=== PATIENT | female | born 1950 | race Caucasian/White ===

== ENCOUNTER → 2017-04-05 12:04 | Outpatient (CLI) | payer MEDICARE, OTHER, SELFPAY ==
[2017-04-05 14:35] LABS: Absolute Lymphocyte Count 1.73 X10^3/ul (0.83-4.51); Absolute Neutrophil Count 4.5 X10^3/uL (2.0-7.7); Basophil# 0.02 X10^3/uL; Basophil% 0.3 % (0-1); Eosinophil# 0.19 X10^3/uL; Eosinophils% 2.6 % (0-5); Hematocrit 39.7 % (37-47); Hemoglobin 13.2 g/dl (12.0-15.0); Lymphocyte # 1.73 X10^3/ul (4.0); Lymphocyte % 24.1 % (19-41); Mean Corp Hgb Conc 33.2 g/gl (32-36); Mean Corpuscular Hgb 32.4 pg (27.0-32.0); Mean Corpuscular Volume 97.5 fL (81-99); Mean Platelet Vol. 9.6 fl (6.2-12.0); Monocyte# 0.73 X10^3/uL; Monocyte% 10.2 % (0-10); Neutrophil # 4.49 X10^3/uL (2.7-7.7); Neutrophil % 62.5 % (47-70); Platelet Count 279 K/mm3 (150-450); RBC Distribution Width CV 12.9 % (11.6-14.6); RBC Distribution Width SD 44.9 fl (35.1-43.9); Red Blood Count 4.07 M/mm3 (4.2-5.4); White Blood Count 7.2 K/mm3 (4.4-11.0)
[2017-04-05 14:40] LABS: POSITIVE COUNT NO; POSITIVE DIFFERENTIAL NO; POSITIVE MORPHOLOGY NO
[2017-04-05 14:47] LABS: AST(SGOT) 30 U/L (15-37); Alanine Aminotransfer ALT/SGPT 37 U/L (13-56); Albumin, Serum 3.7 g/dL (3.2-5.0); Alkaline Phosphatase 82 U/L (45-117); Anion Gap 5 (5-15); BUN 16 mg/dL (7-18); BUN/Creat Ratio 19.6 RATIO (10-20); Calcium,Total 9.2 mg/dL (8.5-10.1); Chloride 102 mmol/L (98-107); Creatinine, Serum 0.82 mg/dL (0.55-1.02); EST Glomerular Filtration Rate 74 mL/min (>60); Est Glom Filt Rate - Afr Amer 89 mL/min (>60); Globulin 3.8 g/dL (2.2-4.2); Glucose 82 mg/dL (70-110); Potassium 4.2 mmol/L (3.5-5.1); Protein, Total 7.5 g/dL (6.4-8.2); Sodium Level 138 mmol/L (136-145)
== END ==
PROVIDERS: Family Provider Internal Medicine; PCP Internal Medicine; Visit Provider Internal Medicine Rheumatology
DX: L40.59 Other psoriatic arthropathy (principal); M47.892 Other spondylosis, cervical region; M17.0 Bilateral primary osteoarthritis of knee; M79.7 Fibromyalgia; M25.561 Pain in right knee; Z79.899 Other long term (current) drug therapy
CPT/HCPCS: 36415; 80053; 85025

== ENCOUNTER → 2017-06-28 14:57 | Outpatient (CLI) | payer MEDICARE, OTHER, SELFPAY ==
[2017-06-28 18:11] LABS: Absolute Lymphocyte Count 1.82 X10^3/ul (0.83-4.51); Absolute Neutrophil Count 4.4 X10^3/uL (2.0-7.7); Basophil# 0.05 X10^3/uL; Basophil% 0.7 % (0-1); Eosinophil# 0.17 X10^3/uL; Eosinophils% 2.4 % (0-5); Hematocrit 37.2 % (37-47); Hemoglobin 12.1 g/dl (12.0-15.0); Lymphocyte # 1.82 X10^3/ul (4.0); Mean Corp Hgb Conc 32.5 g/gl (32-36); Mean Corpuscular Hgb 32.3 pg (27.0-32.0); Mean Corpuscular Volume 99.2 fL (81-99); Mean Platelet Vol. 9.5 fl (6.2-12.0); Monocyte# 0.57 X10^3/uL; Monocyte% 8.2 % (0-10); Neutrophil # 4.37 X10^3/uL (2.7-7.7); Neutrophil % 62.6 % (47-70); Platelet Count 313 K/mm3 (150-450); RBC Distribution Width CV 13.3 % (11.6-14.6); Red Blood Count 3.75 M/mm3 (4.2-5.4)
[2017-06-28 18:17] LABS: POSITIVE COUNT NO; POSITIVE DIFFERENTIAL NO; POSITIVE MORPHOLOGY NO
[2017-06-28 18:27] LABS: AST(SGOT) 24 U/L (15-37); Alanine Aminotransfer ALT/SGPT 30 U/L (13-56); Albumin, Serum 3.4 g/dL (3.2-5.0); Alkaline Phosphatase 81 U/L (45-117); Anion Gap 6 (5-15); BUN 16 mg/dL (7-18); BUN/Creat Ratio 18.6 RATIO (10-20); Calcium,Total 8.8 mg/dL (8.5-10.1); Chloride 104 mmol/L (98-107); Creatinine, Serum 0.86 mg/dL (0.55-1.02); EST Glomerular Filtration Rate 70 mL/min (>60); Est Glom Filt Rate - Afr Amer 84 mL/min (>60); Globulin 3.5 g/dL (2.2-4.2); Glucose 103 mg/dL (74-106); Potassium 4.1 mmol/L (3.5-5.1); Protein, Total 6.9 g/dL (6.4-8.2); Sodium Level 141 mmol/L (136-145)
== END ==
PROVIDERS: Family Provider Internal Medicine; PCP Internal Medicine; Visit Provider Internal Medicine Rheumatology
DX: L40.59 Other psoriatic arthropathy (principal); M79.7 Fibromyalgia; M17.0 Bilateral primary osteoarthritis of knee; M47.892 Other spondylosis, cervical region; Q66.7 Congenital pes cavus; E78.5 Hyperlipidemia, unspecified; G47.33 Obstructive sleep apnea (adult) (pediatric); F32.89 Other specified depressive episodes; Z79.899 Other long term (current) drug therapy
CPT/HCPCS: 36415; 80053; 85025

== ENCOUNTER → 2017-09-17 13:57 | Outpatient (CLI) | payer MEDICARE, OTHER, SELFPAY ==
--- NOTE | 2017-09-17 14:08 | US_ITS ---
STUDY: SUPERFICIAL ULTRASOUND - LEFT ARM AREA OF BRUISING, PALPABLE LUMP REASON FOR EXAM: Female, 67 years old. Left arm area of bruising with palpable lump, ventral just superior to the antecubital fossa. TECHNIQUE: A superficial ultrasound was performed with real-time and static goldman-scale imaging and color Doppler. COMPARISON: None. FINDINGS: Just superior to the antecubital fossa ventral aspect of the left arm there is a subcutaneous hypoechoic oval focus with irregular margins measuring 2.6 x 1.6 x 0.8 cm corresponding to the area of palpable lump and bruising and most consistent with a small hematoma. There is slight hyperemia in the surrounding subcutaneous fat. US/Ext Non Vasc Limited/Soft Tiss IMPRESSION: These findings are most consistent with a small hematoma within the subcutaneous fat. In the setting of trauma with bruising, this could also reflect a small region of fat necrosis. Electronically Signed: Elio Back, at 20:51 EDT Tel , Service support ,
== END ==
PROVIDERS: Family Provider Internal Medicine; PCP Internal Medicine
DX: R23.3 Spontaneous ecchymoses (principal)
CPT/HCPCS: 76882

== ENCOUNTER → 2018-03-14 13:23 | Outpatient (CLI) | payer MEDICARE, OTHER, SELFPAY ==
[2018-03-14 14:24] LABS: Absolute Lymphocyte Count 1.74 X10^3/ul (0.83-4.51); Absolute Neutrophil Count 3.8 X10^3/uL (2.0-7.7); Basophil# 0.03 X10^3/uL; Basophil% 0.5 % (0-1); Eosinophil# 0.15 X10^3/uL; Eosinophils% 2.4 % (0-5); Hematocrit 39.7 % (37-47); Hemoglobin 12.7 g/dl (12.0-15.0); Lymphocyte # 1.74 X10^3/ul (4.0); Lymphocyte % 27.9 % (19-41); Mean Corpuscular Hgb 31.7 pg (27.0-32.0); Mean Platelet Vol. 9.6 fl (6.2-12.0); Monocyte# 0.48 X10^3/uL; Monocyte% 7.7 % (0-10); Neutrophil # 3.82 X10^3/uL (2.7-7.7); Neutrophil % 61.3 % (47-70); Platelet Count 256 K/mm3 (150-450); RBC Distribution Width CV 13.3 % (11.6-14.6); RBC Distribution Width SD 46.6 fl (35.1-43.9); Red Blood Count 4.01 M/mm3 (4.2-5.4); White Blood Count 6.2 K/mm3 (4.4-11.0)
[2018-03-14 14:28] LABS: POSITIVE COUNT NO; POSITIVE DIFFERENTIAL NO; POSITIVE MORPHOLOGY NO
[2018-03-14 14:42] LABS: ALB/GLOB Ratio 1.1 RATIO (0.9-2.4); AST(SGOT) 31 U/L (15-37); Alanine Aminotransfer ALT/SGPT 38 U/L (13-56); Albumin, Serum 3.9 g/dL (3.2-5.0); Alkaline Phosphatase 85 U/L (45-117); Anion Gap 6 (5-15); BUN 16 mg/dL (7-18); BUN/Creat Ratio 19.7 RATIO (10-20); Calcium,Total 9.2 mg/dL (8.5-10.1); Chloride 102 mmol/L (98-107); Creatinine, Serum 0.81 mg/dL (0.55-1.02); EST Glomerular Filtration Rate 74 mL/min (>60); Est Glom Filt Rate - Afr Amer 90 mL/min (>60); Globulin 3.4 g/dL (2.2-4.2); Glucose 87 mg/dL (74-106); Protein, Total 7.3 g/dL (6.4-8.2); Sodium Level 139 mmol/L (136-145)
== END ==
PROVIDERS: Family Provider Internal Medicine; PCP Internal Medicine; Referring Provider Internal Medicine Rheumatology; Visit Provider Internal Medicine Rheumatology
DX: L40.59 Other psoriatic arthropathy (principal); M17.0 Bilateral primary osteoarthritis of knee; M79.7 Fibromyalgia; M25.561 Pain in right knee; Z79.899 Other long term (current) drug therapy
CPT/HCPCS: 36415; 80053; 85025

== ENCOUNTER → 2018-06-09 | Outpatient (CLI) | payer MEDICARE, OTHER, SELFPAY ==
[2018-06-09 16:13] LABS: Absolute Lymphocyte Count 1.36 X10^3/ul (0.83-4.51); Basophil# 0.02 X10^3/uL; Basophil% 0.3 % (0-1); Eosinophils% 1.7 % (0-5); Hematocrit 38.7 % (37-47); Hemoglobin 12.3 g/dl (12.0-15.0); Lymphocyte # 1.36 X10^3/ul (4.0); Lymphocyte % 22.6 % (19-41); Mean Corp Hgb Conc 31.8 g/gl (32-36); Mean Corpuscular Hgb 31.2 pg (27.0-32.0); Mean Corpuscular Volume 98.2 fL (81-99); Mean Platelet Vol. 9.6 fl (6.2-12.0); Monocyte# 0.55 X10^3/uL; Monocyte% 9.1 % (0-10); Neutrophil # 3.97 X10^3/uL (2.7-7.7); POSITIVE COUNT NO; POSITIVE DIFFERENTIAL NO; POSITIVE MORPHOLOGY NO; Platelet Count 265 K/mm3 (150-450); RBC Distribution Width CV 14.3 % (11.6-14.6); RBC Distribution Width SD 49.6 fl (35.1-43.9); Red Blood Count 3.94 M/mm3 (4.2-5.4)
[2018-06-09 16:25] LABS: ALB/GLOB Ratio 1.1 RATIO (0.9-2.4); AST(SGOT) 26 U/L (15-37); Alanine Aminotransfer ALT/SGPT 36 U/L (13-56); Albumin, Serum 3.8 g/dL (3.2-5.0); Alkaline Phosphatase 89 U/L (45-117); Anion Gap 7 (5-15); BUN 15 mg/dL (7-18); Calcium,Total 8.9 mg/dL (8.5-10.1); Chloride 102 mmol/L (98-107); Creatinine, Serum 0.94 mg/dL (0.55-1.02); EST Glomerular Filtration Rate 63 mL/min (>60); Est Glom Filt Rate - Afr Amer 76 mL/min (>60); Globulin 3.5 g/dL (2.2-4.2); Glucose 106 mg/dL (74-106); Potassium 3.8 mmol/L (3.5-5.1); Protein, Total 7.3 g/dL (6.4-8.2); Sodium Level 140 mmol/L (136-145)
== END | disposition home or self-care (01) ==
PROVIDERS: Family Provider Internal Medicine; PCP Internal Medicine; Referring Provider Internal Medicine Rheumatology; Visit Provider Internal Medicine Rheumatology
DX: L40.59 Other psoriatic arthropathy (principal); M17.0 Bilateral primary osteoarthritis of knee; M47.892 Other spondylosis, cervical region; M79.7 Fibromyalgia; Z79.899 Other long term (current) drug therapy
CPT/HCPCS: 36415; 80053; 85025

== ENCOUNTER → 2018-12-21 11:57 | Outpatient (CLI) | payer MEDICARE, SELFPAY ==
[2018-12-21 14:30] LABS: Erythrocyte Sedimentation Rate 4 mm/hr (0-30)
[2018-12-21 14:33] LABS: Absolute Neutrophil Count 3.4 X10^3/uL (2.0-7.7); Basophil# 0.03 X10^3/uL; Basophil% 0.5 % (0-1); Eosinophils% 1.8 % (0-5); Hematocrit 38.9 % (37-47); Hemoglobin 12.5 g/dL (12.0-15.0); Lymphocyte % 23.6 % (19-41); Mean Corp Hgb Conc 32.1 g/dL (32-36); Mean Corpuscular Volume 99.5 fL (81-99); Mean Platelet Vol. 9.5 fl (6.2-12.0); Monocyte# 0.69 X10^3/uL; Monocyte% 12.5 % (0-10); NRBC Flagged by Analyzer 0 % (0-5); Neutrophil # 3.36 X10^3/uL (2.7-7.7); Neutrophil % 61.1 % (47-70); Platelet Count 259 K/mm3 (150-450); RBC Distribution Width CV 13.7 % (11.6-14.6); RBC Distribution Width SD 49.3 fl (35.1-43.9); Red Blood Count 3.91 M/mm3 (4.2-5.4); White Blood Count 5.5 K/mm3 (4.4-11.0)
[2018-12-21 14:46] LABS: ALB/GLOB Ratio 1.1 RATIO (0.9-2.4); AST(SGOT) 33 U/L (15-37); Alanine Aminotransfer ALT/SGPT 42 U/L (13-56); Albumin, Serum 3.6 g/dL (3.2-5.0); Alkaline Phosphatase 81 U/L (45-117); Anion Gap 8 (5-15); BUN 17 mg/dL (7-18); BUN/Creat Ratio 19.2 RATIO (10-20); CRP 8.17 mg/L (0.0-3.0); Calcium,Total 8.8 mg/dL (8.5-10.1); Chloride 103 mmol/L (98-107); Creatinine, Serum 0.89 mg/dL (0.55-1.02); EST Glomerular Filtration Rate 67 mL/min (>60); Est Glom Filt Rate - Afr Amer 81 mL/min (>60); Globulin 3.3 g/dL (2.2-4.2); Glucose 93 mg/dL (74-106); Potassium 4.2 mmol/L (3.5-5.1); Protein, Total 6.9 g/dL (6.4-8.2); Sodium Level 141 mmol/L (136-145)
== END ==
PROVIDERS: Family Provider Internal Medicine; PCP Internal Medicine; Referring Provider Internal Medicine Rheumatology; Visit Provider Internal Medicine Rheumatology
DX: L40.59 Other psoriatic arthropathy (principal); M17.0 Bilateral primary osteoarthritis of knee; M25.561 Pain in right knee; M47.892 Other spondylosis, cervical region; M79.7 Fibromyalgia; Q66.70 Congenital pes cavus, unspecified foot; E78.5 Hyperlipidemia, unspecified; F32.89 Other specified depressive episodes; G47.33 Obstructive sleep apnea (adult) (pediatric); Z79.899 Other long term (current) drug therapy
CPT/HCPCS: 36415; 80053; 85025; 85652; 86140

== ENCOUNTER → 2019-04-25 15:31 | Outpatient (CLI) | payer MEDICARE, SELFPAY ==
[2019-04-25 17:40] LABS: Absolute Lymphocyte Count 1.83 X10^3/uL (0.83-4.51); Absolute Neutrophil Count 3.5 X10^3/uL (2.0-7.7); Basophil# 0.04 X10^3/uL; Basophil% 0.7 % (0-1); Eosinophil# 0.24 X10^3/uL; Eosinophils% 3.9 % (0-5); Hematocrit 39.6 % (37-47); Hemoglobin 12.7 g/dL (12.0-15.0); Lymphocyte # 1.83 X10^3/ul (4.0); Lymphocyte % 29.9 % (19-41); Mean Corp Hgb Conc 32.1 g/dL (32-36); Mean Corpuscular Hgb 32.1 pg (27.0-32.0); Mean Platelet Vol. 9.5 fl (6.2-12.0); Monocyte# 0.54 X10^3/uL; Monocyte% 8.8 % (0-10); NRBC Flagged by Analyzer 0 % (0-5); Neutrophil # 3.46 X10^3/uL (2.7-7.7); Neutrophil % 56.5 % (47-70); Platelet Count 263 K/mm3 (150-450); RBC Distribution Width CV 13.1 % (11.6-14.6); RBC Distribution Width SD 47.7 fl (35.1-43.9); Red Blood Count 3.96 M/mm3 (4.2-5.4); White Blood Count 6.1 K/mm3 (4.4-11.0)
[2019-04-25 17:59] LABS: AST(SGOT) 23 U/L (15-37); Alanine Aminotransfer ALT/SGPT 33 U/L (13-56); Albumin, Serum 3.7 g/dL (3.2-5.0); Alkaline Phosphatase 78 U/L (45-117); Anion Gap 5 (5-15); BUN 22 mg/dL (7-18); BUN/Creat Ratio 24.3 RATIO (10-20); Calcium,Total 9.4 mg/dL (8.5-10.1); Chloride 105 mmol/L (98-107); Creatinine, Serum 0.91 mg/dL (0.55-1.02); EST Glomerular Filtration Rate 65 mL/min (>60); Est Glom Filt Rate - Afr Amer 79 mL/min (>60); Globulin 3.6 g/dL (2.2-4.2); Glucose 84 mg/dL (74-106); Potassium 3.9 mmol/L (3.5-5.1); Protein, Total 7.3 g/dL (6.4-8.2); Sodium Level 141 mmol/L (136-145)
== END ==
PROVIDERS: PCP Internal Medicine; Referring Provider Internal Medicine Rheumatology; Visit Provider Internal Medicine Rheumatology
DX: L40.59 Other psoriatic arthropathy (principal); M79.7 Fibromyalgia; L40.9 Psoriasis, unspecified; M17.0 Bilateral primary osteoarthritis of knee; M47.892 Other spondylosis, cervical region; Z79.899 Other long term (current) drug therapy
CPT/HCPCS: 36415; 80053; 85025

== ENCOUNTER → 2019-07-14 13:22 | Outpatient (CLI) | payer MEDICARE, SELFPAY ==
[2019-07-14 15:31] LABS: Absolute Lymphocyte Count 1.28 X10^3/uL (0.83-4.51); Absolute Neutrophil Count 3.1 X10^3/uL (2.0-7.7); Basophil# 0.03 X10^3/uL; Basophil% 0.6 % (0-1); Eosinophil# 0.11 X10^3/uL; Eosinophils% 2.1 % (0-5); Hematocrit 39.5 % (37-47); Hemoglobin 12.6 g/dL (12.0-15.0); Lymphocyte # 1.28 X10^3/ul (4.0); Lymphocyte % 24.5 % (19-41); Mean Corp Hgb Conc 31.9 g/dL (32-36); Mean Corpuscular Hgb 32.1 pg (27.0-32.0); Mean Corpuscular Volume 100.5 fL (81-99); Mean Platelet Vol. 9.8 fl (6.2-12.0); Monocyte# 0.66 X10^3/uL; Monocyte% 12.6 % (0-10); NRBC Flagged by Analyzer 0 % (0-5); Neutrophil # 3.12 X10^3/uL (2.7-7.7); Neutrophil % 59.8 % (47-70); Platelet Count 247 K/mm3 (150-450); RBC Distribution Width CV 13.4 % (11.6-14.6); Red Blood Count 3.93 M/mm3 (4.2-5.4); White Blood Count 5.2 K/mm3 (4.4-11.0)
[2019-07-14 15:51] LABS: ALB/GLOB Ratio 1.1 RATIO (0.9-2.4); AST(SGOT) 26 U/L (15-37); Alanine Aminotransfer ALT/SGPT 35 U/L (13-56); Albumin, Serum 3.8 g/dL (3.2-5.0); Alkaline Phosphatase 74 U/L (45-117); Anion Gap 5 (5-15); BUN 21 mg/dL (7-18); BUN/Creat Ratio 24.6 RATIO (10-20); Calcium,Total 9.4 mg/dL (8.5-10.1); Chloride 105 mmol/L (98-107); Creatinine, Serum 0.85 mg/dL (0.55-1.02); EST Glomerular Filtration Rate 70 mL/min (>60); Est Glom Filt Rate - Afr Amer 85 mL/min (>60); Globulin 3.4 g/dL (2.2-4.2); Glucose 91 mg/dL (74-106); Protein, Total 7.2 g/dL (6.4-8.2); Sodium Level 141 mmol/L (136-145)
== END ==
PROVIDERS: PCP Internal Medicine; Referring Provider Internal Medicine Rheumatology; Visit Provider Internal Medicine Rheumatology
DX: L40.59 Other psoriatic arthropathy (principal); M79.7 Fibromyalgia; L40.9 Psoriasis, unspecified; M17.0 Bilateral primary osteoarthritis of knee; M47.892 Other spondylosis, cervical region; Q66.70 Congenital pes cavus, unspecified foot; F32.89 Other specified depressive episodes; E78.5 Hyperlipidemia, unspecified; G47.33 Obstructive sleep apnea (adult) (pediatric); Z79.899 Other long term (current) drug therapy
CPT/HCPCS: 36415; 80053; 85025

== ENCOUNTER → 2019-10-13 08:55 | Outpatient (CLI) | payer MEDICARE, OTHER, SELFPAY ==
[2019-10-13 09:47] LABS: Absolute Lymphocyte Count 0.96 X10^3/uL (0.83-4.51); Absolute Neutrophil Count 2.8 X10^3/uL (2.0-7.7); Basophil# 0.03 X10^3/uL; Basophil% 0.7 % (0-1); Eosinophil# 0.18 X10^3/uL; Eosinophils% 3.9 % (0-5); Hematocrit 38.7 % (37-47); Hemoglobin 12.3 g/dL (12.0-15.0); Lymphocyte # 0.96 X10^3/ul (4.0); Lymphocyte % 20.9 % (19-41); Mean Corp Hgb Conc 31.8 g/dL (32-36); Mean Corpuscular Hgb 31.9 pg (27.0-32.0); Mean Corpuscular Volume 100.5 fL (81-99); Mean Platelet Vol. 9.4 fl (6.2-12.0); Monocyte# 0.58 X10^3/uL; Monocyte% 12.6 % (0-10); NRBC Flagged by Analyzer 0 % (0-5); Neutrophil # 2.84 X10^3/uL (2.7-7.7); Neutrophil % 61.7 % (47-70); Platelet Count 256 K/mm3 (150-450); RBC Distribution Width CV 13.1 % (11.6-14.6); RBC Distribution Width SD 47.5 fl (35.1-43.9); Red Blood Count 3.85 M/mm3 (4.2-5.4); White Blood Count 4.6 K/mm3 (4.4-11.0)
[2019-10-13 10:28] LABS: ALB/GLOB Ratio 1.3 RATIO (0.9-2.4); AST(SGOT) 23 U/L (15-37); Alanine Aminotransfer ALT/SGPT 25 U/L (13-56); Albumin, Serum 3.7 g/dL (3.2-5.0); Alkaline Phosphatase 79 U/L (45-117); Anion Gap 5 (5-15); BUN 15 mg/dL (7-18); BUN/Creat Ratio 16.7 RATIO (10-20); Calcium,Total 8.9 mg/dL (8.5-10.1); Chloride 104 mmol/L (98-107); Cholesterol 229 mg/dL (200); EST Glomerular Filtration Rate 66 mL/min (>60); Est Glom Filt Rate - Afr Amer 80 mL/min (>60); Globulin 2.9 g/dL (2.2-4.2); Glucose 94 mg/dL (74-106); High Density Lipoprotein 55 mg/dL; Protein, Total 6.6 g/dL (6.4-8.2); Sodium Level 139 mmol/L (136-145); Triglycerides 125 mg/dL; Very Low Density Lipoprotein 25 mg/dL (5-40)
== END ==
PROVIDERS: PCP Internal Medicine; Referring Provider Clinical Nurse Specialist; Visit Provider Clinical Nurse Specialist
DX: L40.59 Other psoriatic arthropathy (principal); M79.7 Fibromyalgia; L40.9 Psoriasis, unspecified; M17.0 Bilateral primary osteoarthritis of knee; M47.892 Other spondylosis, cervical region; Q66.70 Congenital pes cavus, unspecified foot; F32.89 Other specified depressive episodes; G47.33 Obstructive sleep apnea (adult) (pediatric); E78.00 Pure hypercholesterolemia, unspecified; Z79.899 Other long term (current) drug therapy
CPT/HCPCS: 36415; 80053; 80061; 85025

== ENCOUNTER → 2019-12-22 11:31 | Outpatient (CLI) | payer MEDICARE, OTHER, SELFPAY ==
[2019-12-22 15:01] LABS: Absolute Lymphocyte Count 1.05 X10^3/uL (0.83-4.51); Absolute Neutrophil Count 3.2 X10^3/uL (2.0-7.7); Basophil# 0.03 X10^3/uL; Basophil% 0.6 % (0-1); Eosinophil# 0.12 X10^3/uL; Eosinophils% 2.4 % (0-5); Hematocrit 39.1 % (37-47); Hemoglobin 12.1 g/dL (12.0-15.0); Lymphocyte # 1.05 X10^3/ul (4.0); Lymphocyte % 20.7 % (19-41); Mean Corp Hgb Conc 30.9 g/dL (32-36); Mean Corpuscular Volume 100.3 fL (81-99); Mean Platelet Vol. 9.8 fl (6.2-12.0); Monocyte# 0.69 X10^3/uL; Monocyte% 13.6 % (0-10); NRBC Flagged by Analyzer 0 % (0-5); Neutrophil # 3.17 X10^3/uL (2.7-7.7); Neutrophil % 62.3 % (47-70); Platelet Count 243 K/mm3 (150-450); RBC Distribution Width CV 13.4 % (11.6-14.6); RBC Distribution Width SD 49.5 fl (35.1-43.9); White Blood Count 5.1 K/mm3 (4.4-11.0)
[2019-12-22 15:24] LABS: AST(SGOT) 20 U/L (15-37); Alanine Aminotransfer ALT/SGPT 29 U/L (13-56); Albumin, Serum 3.5 g/dL (3.2-5.0); Alkaline Phosphatase 83 U/L (45-117); Anion Gap 4 (5-15); BUN 19 mg/dL (7-18); BUN/Creat Ratio 20.6 RATIO (10-20); Calcium,Total 8.8 mg/dL (8.5-10.1); Chloride 105 mmol/L (98-107); Creatinine, Serum 0.92 mg/dL (0.55-1.02); EST Glomerular Filtration Rate 64 mL/min (>60); Est Glom Filt Rate - Afr Amer 77 mL/min (>60); Globulin 3.5 g/dL (2.2-4.2); Glucose 80 mg/dL (74-106); Sodium Level 139 mmol/L (136-145)
== END ==
PROVIDERS: PCP Internal Medicine; Referring Provider Internal Medicine Rheumatology; Visit Provider Internal Medicine Rheumatology
DX: L40.59 Other psoriatic arthropathy (principal); M79.7 Fibromyalgia; L40.9 Psoriasis, unspecified; M17.0 Bilateral primary osteoarthritis of knee; M47.892 Other spondylosis, cervical region; Q66.70 Congenital pes cavus, unspecified foot; F32.89 Other specified depressive episodes; E78.5 Hyperlipidemia, unspecified; G47.33 Obstructive sleep apnea (adult) (pediatric); Z79.899 Other long term (current) drug therapy
CPT/HCPCS: 36415; 80053; 85025

== ENCOUNTER → 2020-03-11 09:56 | Outpatient (CLI) | payer MEDICARE, OTHER, SELFPAY ==
[2020-03-11 12:49] LABS: Absolute Lymphocyte Count 1.15 X10^3/uL (0.83-4.51); Absolute Neutrophil Count 3.4 X10^3/uL (2.0-7.7); Basophil# 0.04 X10^3/uL; Basophil% 0.8 % (0-1); Eosinophil# 0.16 X10^3/uL; Eosinophils% 3.1 % (0-5); Hematocrit 38.9 % (37-47); Hemoglobin 12.3 g/dL (12.0-15.0); Lymphocyte # 1.15 X10^3/ul (4.0); Lymphocyte % 22.1 % (19-41); Mean Corp Hgb Conc 31.6 g/dL (32-36); Mean Corpuscular Hgb 31.4 pg (27.0-32.0); Mean Corpuscular Volume 99.2 fL (81-99); Mean Platelet Vol. 9.6 fl (6.2-12.0); Monocyte# 0.48 X10^3/uL; Monocyte% 9.2 % (0-10); NRBC Flagged by Analyzer 0 % (0-5); Neutrophil # 3.36 X10^3/uL (2.7-7.7); Neutrophil % 64.6 % (47-70); Platelet Count 248 K/mm3 (150-450); RBC Distribution Width CV 13.4 % (11.6-14.6); RBC Distribution Width SD 47.8 fl (35.1-43.9); Red Blood Count 3.92 M/mm3 (4.2-5.4); White Blood Count 5.2 K/mm3 (4.4-11.0)
[2020-03-11 12:50] LABS: AST(SGOT) 23 U/L (15-37); Alanine Aminotransfer ALT/SGPT 32 U/L (13-56); Albumin, Serum 3.5 g/dL (3.2-5.0); Alkaline Phosphatase 86 U/L (45-117); Anion Gap 6 (5-15); BUN 18 mg/dL (7-18); BUN/Creat Ratio 21.4 RATIO (10-20); Calcium,Total 8.9 mg/dL (8.5-10.1); Chloride 104 mmol/L (98-107); Creatinine, Serum 0.84 mg/dL (0.55-1.02); EST Glomerular Filtration Rate 71 mL/min (>60); Est Glom Filt Rate - Afr Amer 86 mL/min (>60); Globulin 3.4 g/dL (2.2-4.2); Glucose 85 mg/dL (74-106); Potassium 3.5 mmol/L (3.5-5.1); Protein, Total 6.9 g/dL (6.4-8.2); Sodium Level 141 mmol/L (136-145)
== END ==
PROVIDERS: PCP Internal Medicine; Referring Provider Internal Medicine Rheumatology; Visit Provider Internal Medicine Rheumatology
DX: L40.59 Other psoriatic arthropathy (principal); M79.7 Fibromyalgia; L40.9 Psoriasis, unspecified; M17.0 Bilateral primary osteoarthritis of knee; M47.892 Other spondylosis, cervical region; Q66.70 Congenital pes cavus, unspecified foot; F32.89 Other specified depressive episodes; E78.5 Hyperlipidemia, unspecified; G47.33 Obstructive sleep apnea (adult) (pediatric); Z79.899 Other long term (current) drug therapy
CPT/HCPCS: 36415; 80053; 85025

== ENCOUNTER → 2020-06-17 12:20 | Outpatient (CLI) | payer MEDICARE, OTHER, SELFPAY ==
[2020-06-17 15:19] LABS: Absolute Lymphocyte Count 1.41 X10^3/uL (0.83-4.51); Absolute Neutrophil Count 3.5 X10^3/uL (2.0-7.7); Basophil# 0.06 X10^3/uL; Basophil% 1.1 % (0-1); Eosinophil# 0.23 X10^3/uL; Hematocrit 37.7 % (37-47); Hemoglobin 11.7 g/dL (12.0-15.0); Lymphocyte # 1.41 X10^3/ul (4.0); Lymphocyte % 24.8 % (19-41); Mean Corpuscular Hgb 31.5 pg (27.0-32.0); Mean Corpuscular Volume 101.6 fL (81-99); Mean Platelet Vol. 9.7 fl (6.2-12.0); Monocyte% 8.8 % (0-10); NRBC Flagged by Analyzer 0 % (0-5); Neutrophil # 3.47 X10^3/uL (2.7-7.7); Neutrophil % 60.9 % (47-70); Platelet Count 270 K/mm3 (150-450); RBC Distribution Width CV 13.2 % (11.6-14.6); RBC Distribution Width SD 49.1 fl (35.1-43.9); Red Blood Count 3.71 M/mm3 (4.2-5.4); White Blood Count 5.7 K/mm3 (4.4-11.0)
[2020-06-17 15:35] LABS: ALB/GLOB Ratio 1.1 RATIO (0.9-2.4); AST(SGOT) 22 U/L (15-37); Alanine Aminotransfer ALT/SGPT 28 U/L (13-56); Albumin, Serum 3.6 g/dL (3.2-5.0); Alkaline Phosphatase 75 U/L (45-117); Anion Gap 5 (5-15); BUN 16 mg/dL (7-18); BUN/Creat Ratio 18.4 RATIO (10-20); Calcium,Total 9.2 mg/dL (8.5-10.1); Chloride 105 mmol/L (98-107); Creatinine, Serum 0.87 mg/dL (0.55-1.02); EST Glomerular Filtration Rate 68 mL/min (>60); Est Glom Filt Rate - Afr Amer 83 mL/min (>60); Globulin 3.4 g/dL (2.2-4.2); Glucose 78 mg/dL (74-106); Potassium 3.6 mmol/L (3.5-5.1); Sodium Level 140 mmol/L (136-145)
== END ==
PROVIDERS: PCP Internal Medicine; Referring Provider Internal Medicine Rheumatology; Visit Provider Internal Medicine Rheumatology
DX: L40.59 Other psoriatic arthropathy (principal); M79.7 Fibromyalgia; L40.9 Psoriasis, unspecified; M17.0 Bilateral primary osteoarthritis of knee; M47.892 Other spondylosis, cervical region; E78.5 Hyperlipidemia, unspecified; G47.33 Obstructive sleep apnea (adult) (pediatric); Z79.899 Other long term (current) drug therapy
CPT/HCPCS: 36415; 80053; 85025

== ENCOUNTER → 2020-09-13 11:41 | Outpatient (CLI) | payer MEDICARE, OTHER, SELFPAY ==
[2020-09-13 15:51] LABS: Absolute Lymphocyte Count 0.98 X10^3/uL (0.83-4.51); Absolute Neutrophil Count 3.4 X10^3/uL (2.0-7.7); Basophil# 0.03 X10^3/uL; Basophil% 0.6 % (0-1); Eosinophil# 0.14 X10^3/uL; Eosinophils% 2.7 % (0-5); Hematocrit 36.3 % (37-47); Hemoglobin 11.5 g/dL (12.0-15.0); Lymphocyte # 0.98 X10^3/ul (0.83-4.51); Lymphocyte % 18.9 % (19-41); Mean Corp Hgb Conc 31.7 g/dL (32-36); Mean Corpuscular Hgb 31.7 pg (27.0-32.0); Mean Platelet Vol. 9.6 fl (6.2-12.0); Monocyte# 0.65 X10^3/uL; Monocyte% 12.5 % (0-10); NRBC Flagged by Analyzer 0 % (0-5); Neutrophil # 3.37 X10^3/uL (2.7-7.7); Neutrophil % 65.1 % (47-70); Platelet Count 229 K/mm3 (150-450); RBC Distribution Width CV 13.7 % (11.6-14.6); RBC Distribution Width SD 49.9 fl (35.1-43.9); Red Blood Count 3.63 M/mm3 (4.2-5.4); White Blood Count 5.2 K/mm3 (4.4-11.0)
[2020-09-13 16:31] LABS: ALB/GLOB Ratio 1.1 RATIO (0.9-2.4); AST(SGOT) 27 U/L (15-37); Alanine Aminotransfer ALT/SGPT 35 U/L (13-56); Albumin, Serum 3.5 g/dL (3.2-5.0); Alkaline Phosphatase 79 U/L (45-117); Anion Gap 6 (5-15); BUN 16 mg/dL (7-18); BUN/Creat Ratio 16.6 RATIO (10-20); Calcium,Total 8.8 mg/dL (8.5-10.1); Chloride 103 mmol/L (98-107); Creatinine, Serum 0.96 mg/dL (0.55-1.02); EST Glomerular Filtration Rate 61 mL/min (>60); Est Glom Filt Rate - Afr Amer 74 mL/min (>60); Globulin 3.2 g/dL (2.2-4.2); Glucose 104 mg/dL (74-106); Protein, Total 6.7 g/dL (6.4-8.2); Sodium Level 140 mmol/L (136-145)
== END ==
PROVIDERS: PCP Internal Medicine; Referring Provider Internal Medicine Rheumatology; Visit Provider Internal Medicine Rheumatology
DX: L40.59 Other psoriatic arthropathy (principal); M79.7 Fibromyalgia; L40.9 Psoriasis, unspecified; M17.0 Bilateral primary osteoarthritis of knee; M47.892 Other spondylosis, cervical region; Q66.70 Congenital pes cavus, unspecified foot; F32.89 Other specified depressive episodes; E78.5 Hyperlipidemia, unspecified; G47.33 Obstructive sleep apnea (adult) (pediatric); Z79.899 Other long term (current) drug therapy
CPT/HCPCS: 36415; 80053; 85025

== ENCOUNTER → 2020-12-17 11:32 | Outpatient (CLI) | payer MEDICARE, OTHER, SELFPAY ==
[2020-12-17 14:59] LABS: Absolute Lymphocyte Count 1.39 X10^3/uL (0.83-4.51); Absolute Neutrophil Count 4.3 X10^3/uL (2.0-7.7); Basophil# 0.05 X10^3/uL; Basophil% 0.7 % (0-1); Eosinophil# 0.19 X10^3/uL; Eosinophils% 2.8 % (0-5); Hematocrit 37.9 % (37-47); Hemoglobin 12.3 g/dL (12.0-15.0); Lymphocyte # 1.39 X10^3/ul (0.83-4.51); Lymphocyte % 20.7 % (19-41); Mean Corp Hgb Conc 32.5 g/dL (32-36); Mean Corpuscular Hgb 32.3 pg (27.0-32.0); Mean Corpuscular Volume 99.5 fL (81-99); Mean Platelet Vol. 9.7 fl (6.2-12.0); Monocyte# 0.76 X10^3/uL; Monocyte% 11.3 % (0-10); NRBC Flagged by Analyzer 0 % (0-5); Neutrophil # 4.29 X10^3/uL (2.7-7.7); Neutrophil % 64.2 % (47-70); Platelet Count 258 K/mm3 (150-450); RBC Distribution Width CV 12.9 % (11.6-14.6); RBC Distribution Width SD 46.8 fl (35.1-43.9); Red Blood Count 3.81 M/mm3 (4.2-5.4); White Blood Count 6.7 K/mm3 (4.4-11.0)
[2020-12-17 15:15] LABS: ALB/GLOB Ratio 0.9 RATIO (0.9-2.4); AST(SGOT) 36 U/L (15-37); Alanine Aminotransfer ALT/SGPT 40 U/L (13-56); Albumin, Serum 3.4 g/dL (3.2-5.0); Alkaline Phosphatase 79 U/L (45-117); Anion Gap 8 (5-15); BUN 19 mg/dL (7-18); BUN/Creat Ratio 22.3 RATIO (10-20); Calcium,Total 9.2 mg/dL (8.5-10.1); Chloride 105 mmol/L (98-107); Creatinine, Serum 0.85 mg/dL (0.55-1.02); EST Glomerular Filtration Rate 70 mL/min (>60); Est Glom Filt Rate - Afr Amer 85 mL/min (>60); Globulin 3.6 g/dL (2.2-4.2); Glucose 88 mg/dL (74-106); Potassium 3.7 mmol/L (3.5-5.1); Sodium Level 141 mmol/L (136-145)
== END ==
PROVIDERS: PCP Internal Medicine; Referring Provider Internal Medicine Rheumatology; Visit Provider Internal Medicine Rheumatology
DX: L40.59 Other psoriatic arthropathy (principal); M79.7 Fibromyalgia; L40.9 Psoriasis, unspecified; M17.0 Bilateral primary osteoarthritis of knee; M47.892 Other spondylosis, cervical region; Q66.70 Congenital pes cavus, unspecified foot; F32.89 Other specified depressive episodes; E78.5 Hyperlipidemia, unspecified; G47.33 Obstructive sleep apnea (adult) (pediatric); Z79.899 Other long term (current) drug therapy
CPT/HCPCS: 36415; 80053; 85025

== ENCOUNTER → 2020-12-30 10:35 | Outpatient (CLI) | payer MEDICARE, OTHER, SELFPAY ==
--- NOTE | 2020-12-30 10:53 | RAD_ITS ---
STUDY: X-RAY - LEFT KNEE REASON FOR EXAM: Female, 70 years old. Knee pain. TECHNIQUE: 4 view(s) of the knee. COMPARISON: 10/07/2015. FINDINGS: Osteopenia. Mild medial compartmental arthrosis. Mild lateral compartmental arthrosis. Mild arthrosis of the patellofemoral compartment. Chondrocalcinosis. RAD/Knee 4 or More Views IMPRESSION: Osteopenia with tricompartmental arthrosis. Chondrocalcinosis. No acute abnormality. Electronically Signed: Joseph Quick MD at 14:02 EDT , Service support ,
--- NOTE | 2020-12-30 10:53 | RAD_ITS ---
STUDY: X-RAY - RIGHT KNEE REASON FOR EXAM: Female, 70 years old. Knee pain. Evaluate for osteoarthrosis. TECHNIQUE: 4 view(s) of the knee. COMPARISON: 10/07/2015. FINDINGS: Osteopenia. Marked arthrosis of the medial compartment with osteophytes. Mild arthrosis of the lateral compartment. Moderate arthrosis of the patellofemoral compartment. The soft tissue structures are unremarkable. RAD/Knee 4 or More Views IMPRESSION: Osteopenia with tricompartmental arthrosis as described. No acute finding. Electronically Signed: Joseph Quick MD at 14:00 EDT , Service support ,
== END ==
PROVIDERS: PCP Internal Medicine; Referring Provider Internal Medicine Rheumatology; Visit Provider Internal Medicine Rheumatology
DX: M17.0 Bilateral primary osteoarthritis of knee (principal); L40.59 Other psoriatic arthropathy; M79.7 Fibromyalgia; L40.9 Psoriasis, unspecified; M47.892 Other spondylosis, cervical region; Q66.70 Congenital pes cavus, unspecified foot; F32.89 Other specified depressive episodes; E78.5 Hyperlipidemia, unspecified; G47.33 Obstructive sleep apnea (adult) (pediatric); Z79.899 Other long term (current) drug therapy
CPT/HCPCS: 73564

== ENCOUNTER 2021-03-12 14:30 | Outpatient (CLI) | payer MEDICARE, OTHER, SELFPAY ==
[2021-03-12 17:43] LABS: Absolute Lymphocyte Count 1.47 X10^3/uL (0.83-4.51); Absolute Neutrophil Count 3.3 X10^3/uL (2.0-7.7); Basophil# 0.04 X10^3/uL; Basophil% 0.7 % (0-1); Eosinophil# 0.16 X10^3/uL; Eosinophils% 2.8 % (0-5); Hematocrit 39.3 % (37-47); Hemoglobin 12.4 g/dL (12.0-15.0); Lymphocyte # 1.47 X10^3/ul (0.83-4.51); Lymphocyte % 25.7 % (19-41); Mean Corp Hgb Conc 31.6 g/dL (32-36); Mean Corpuscular Hgb 32.1 pg (27.0-32.0); Mean Corpuscular Volume 101.8 fL (81-99); Mean Platelet Vol. 9.7 fl (6.2-12.0); Monocyte# 0.68 X10^3/uL; Monocyte% 11.9 % (0-10); NRBC Flagged by Analyzer 0 % (0-5); Neutrophil # 3.34 X10^3/uL (2.7-7.7); Neutrophil % 58.5 % (47-70); Platelet Count 270 K/mm3 (150-450); RBC Distribution Width CV 13.3 % (11.6-14.6); RBC Distribution Width SD 48.9 fl (35.1-43.9); Red Blood Count 3.86 M/mm3 (4.2-5.4); White Blood Count 5.7 K/mm3 (4.4-11.0)
[2021-03-12 18:00] LABS: ALB/GLOB Ratio 1.1 RATIO (0.9-2.4); AST(SGOT) 29 U/L (15-37); Alanine Aminotransfer ALT/SGPT 39 U/L (13-56); Albumin, Serum 3.7 g/dL (3.2-5.0); Alkaline Phosphatase 81 U/L (45-117); Anion Gap 6 (5-15); BUN 21 mg/dL (7-18); BUN/Creat Ratio 25.1 RATIO (10-20); Calcium,Total 9.2 mg/dL (8.5-10.1); Chloride 104 mmol/L (98-107); Creatinine, Serum 0.84 mg/dL (0.55-1.02); EST Glomerular Filtration Rate 71 mL/min (>60); Est Glom Filt Rate - Afr Amer 86 mL/min (>60); Globulin 3.5 g/dL (2.2-4.2); Glucose 101 mg/dL (74-106); Potassium 3.8 mmol/L (3.5-5.1); Protein, Total 7.2 g/dL (6.4-8.2); Sodium Level 141 mmol/L (136-145)
== END 2021-03-12 23:59 | disposition short-term general hospital (02) ==
LOC: MTLAB 14:32
PROVIDERS: PCP Internal Medicine; Referring Provider Internal Medicine Rheumatology; Visit Provider Internal Medicine Rheumatology
DX: L40.59 Other psoriatic arthropathy (principal); Z79.899 Other long term (current) drug therapy; M79.7 Fibromyalgia; L40.9 Psoriasis, unspecified; M17.0 Bilateral primary osteoarthritis of knee; M47.892 Other spondylosis, cervical region; Q66.70 Congenital pes cavus, unspecified foot; F32.89 Other specified depressive episodes; E78.5 Hyperlipidemia, unspecified; G47.33 Obstructive sleep apnea (adult) (pediatric)
CPT/HCPCS: 36415; 80053; 85025

== ENCOUNTER 2021-05-28 10:00 | Outpatient (RCR) | payer MEDICARE, OTHER, SELFPAY ==
--- NOTE | 2020-10-28 12:28 | HP.PTEVAL ---
Patient's Visit Information JOSY HOPPER is a 70 year old F referred to Physical Therapy by Dr. Chantel García MD with a diagnosis of psoriatic arthritis, fibromyalgia, and cervical spondylosis. Date of Evaluation: 10/28/20 Physical Therapist: Vasyl Vick DPT - Visit Plan Frequency: 2x /Week Duration: 4 Weeks Plan: Start with manual stretching and DFM to cervical spine. Add in DN and contract relax techniques. Pt. to add in SNAGs for cervical ROM. - Subjective Pt. is here today for her initial evaluation with diagnosis of psoriatic arthritis, fibromyalgia, and cervical spondylosis. Pt. has been dealing with back and neck pain for years, but has been getting worse recently. She had previously managed with massage. She reports no N/T in either UE. Mornings are stiff and painful. Pt. reports she used to exercise, but has not done much exercising recently. Pt. reports not sleeping well, increased pain, but is also limited due to wearing her CPAP. Pt. does take a medication which does help: tramadol, gabapentin and methotrexate. Her chief complaint is with her neck pain and stiffness that extends into her shoulder blades as times. Increases pain: lifting, looking up, cervical rotation. Decreases pain: medications. Pt. is hopeful to reduce symptoms in order to get back to all recreational activities with decreased symptoms. - Pain Cervical spine Pain Intensity (Out of 10): 4 Pain Intensity Range: 3, 8 B UT Pain Intensity (Out of 10): 4 Pain Intensity Range: 2, 8 - Objective POSTURE: Pt. has generalized flexed posture with increased cervical lordosis. Pt. has increased kyphosis. Pt. has anterior shoulders bilaterally. PALPATION: Pt. has tender at B cervical erector spinae, B UT and B levator scapulea. NEURO: pt. has normal sensation and normal DTR of BUEs. ROM: CERVICAL SPINE: flexion: min/mod loss increase NW, ext mod loss increase NW, SB mod/max loss stiff, ext mod loss stiff. Pt. has normal B shoulder ROM without issues. MMT: Pt. has 5/5 strength throughout B shoulders. Scapular musculature 4/5 throughout. - Special Tests C/S Radiculapathy - Left Upper limb tension test: Negative C/S Radiculapathy - Right Upper limb tension test: Negative C/S Radiculapathy - Left Spurlings: Negative C/S Radiculapathy - Right Spurlings: Negative C/S Radiculapathy - Left Cervical distraction: Negative C/S Radiculapathy - Right Cervical distraction: Negative C/S Radiculapathy - Left Relief test: Negative C/S Radiculapathy - Right Relief test: Negative C/S Radiculapathy - Valsalva: Negative Cervical Sitting: Protrusion - Mechanical Response: No effect Cervical Sitting: Protrusion - Symptoms During Testing: No effect Cervical Sitting: Protrusion - Symptoms After Testing: No effect Cervical Sitting: Retraction - Mechanical Response: No effect Cervical Sitting: Retraction - Symptoms During Testing: Decreases Cervical Sitting: Retraction - Symptoms After Testing: No better Cervical Sitting: Retraction-Extension - Mechanical Response: No effect Cerv Sitting: Retraction-Extension - Symptoms During Testing: Decreases Cerv Sitting: Retraction-Extension - Symptoms After Testing: No better Cervical Sitting: Sidebend Right - Mechanical Response: No effect Cervical Sitting: Sidebend Right - Symptoms During Testing: Produces Cervical Sitting: Sidebend Right - Symptoms After Testing: No effect Cervical Sitting: Sidebend Left - Mechanical Response: No effect Cervical Sitting: Sidebend Left - Symptoms During Testing: No effect Cervical Sitting: Sidebend Left - Symptoms After Testing: No effect - Balance/Special Test Scores Oswestry Neck Score: 26 - Goals Goal 1:: LTG: Pt. to be I with HEP. Goal Time Frame: 4-6 Weeks Goal 2:: STG: Pt. to sleep throughout the night with 0-1/10 pain in cervical spine Goal Time Frame: 2-4 Weeks Goal 3:: LTG: pt. to be able to demonstrate proper posture throughout PT session, indicating improved postural awareness. Goal Time Frame: 4-6 Weeks Goal 4:: LTG: Pt. to have increased cervical spine ROM by 25% in all directions without increase in symptoms. Goal Time Frame: 4-6 Weeks - Rehabilitation Potential Physical Therapy Diagnosis: Pt. has signs and symptoms consistent with psoriatic arthritis, fibromyalgia, and cervical spondylosis. Pt. has marked hypomobility, muscle tightness and muscular pain. Pt. would benefit from PT to address the above limitations progressing ROM and cervical functional movements. Rehabilitation Potential: Excellent - Anticipated Interventions Patient/Client Instruction: Educate patient on: Condition, Plan of Care, Risk Factors, Benefits of Fitness Program For the Purpose of:: To improve self management, To prevent re-injury, To improve ability to perform tasks related to life management, To improve tolerance to ADL's Therapeutic Exercise to Include: Strength training, Power training, Postural training, Flexibilty training, Passive ROM, Active ROM, Dalia Exercises, Scapular Strength/Stabilization For the Purpose of:: To decrease pain, To increase ROM, To increase oxygenation perfusion, To improve muscle performance and motor function, To decrease soft tissue restriction, To increase flexibility/ROM, To improve endurance Manual Therapy Techniques to Include: Mobilization, Passive ROM, Functional dry needling, Soft tissue mobilization For the Purpose of:: To decrease pain, To decrease swelling/inflammation, To increase ROM, To improve nutrient delivery to tissue Thank you for the opportunity to evaluate your patient. For Medicare and Medicare HMO plans, please review the plan of care and approve it. It will need to be FAXED BACK to us at [phone] for Medicare purposes. For Medicare only, by signing this I certify the plan of care. Please let me know if there are questions or concerns regarding this plan of care. Physician Signature: Date:
--- NOTE | 2020-12-30 11:49 | HP.PTREVAL ---
Dr. Chantel García MD, It has been my pleasure to treat JOSY HOPPER over the last 4 visits for psoriatic arthritis, fibromyalgia, and cervical spondylosis. Please see the progress note below for an update on the physical therapy plan of care! Subjective: Pt. reports overall doing better with PT. She is continuing to have some tightness in her her R UT and levator scap region. Pt. denies N/T. She is to have an xray on her knees this week. Increased tenderness to palpation of R levator scap compared to L side, same with UT. Objective/Function: Pt. did well with PT this date. Pt. has some limitation with R rotation. Pt. reports minimal pain after PT. She did have increased R thoracic hypertrophy or Posterior position. Pt. to continue with cervical rotation mobilization and levator scap stretching. Pt. consents. She continues to have slight loss of cervical ROM with rotation R. She is to work on mobilization with movement as well with rotation and then with extension. Add in thoracic extension as well. Plan Plan: Start with manual stretching and DFM to cervical spine. Add in DN and contract relax techniques. Pt. to add in SNAGs for cervical ROM. Balance/Gait/Functional tests - Balance/Special Test Scores Oswestry Neck Score: 17 Goals Goal 1:: LTG: Pt. to be I with HEP. Goal Time Frame: 4-6 Weeks Goal Progress: Goal Met Goal 2:: STG: Pt. to sleep throughout the night with 0-1/10 pain in cervical spine Goal Time Frame: 2-4 Weeks Goal Progress: Progressing Goal 3:: LTG: pt. to be able to demonstrate proper posture throughout PT session, indicating improved postural awareness. Goal Time Frame: 4-6 Weeks Goal Progress: Goal Met Goal 4:: LTG: Pt. to have increased cervical spine ROM by 25% in all directions without increase in symptoms. Goal Time Frame: 4-6 Weeks Goal Progress: Progressing Anticipated Interventions Patient/Client Instruction: Educate patient on: Condition, Plan of Care, Risk Factors, Benefits of Fitness Program For the Purpose of:: To improve self management, To prevent re-injury, To improve ability to perform tasks related to life management, To improve tolerance to ADL's Therapeutic Exercise to Include: Strength training, Power training, Postural training, Flexibilty training, Passive ROM, Active ROM, Dalia Exercises, Scapular Strength/Stabilization For the Purpose of:: To decrease pain, To increase ROM, To increase oxygenation perfusion, To improve muscle performance and motor function, To decrease soft tissue restriction, To increase flexibility/ROM, To improve endurance Manual Therapy Techniques to Include: Mobilization, Passive ROM, Functional dry needling, Soft tissue mobilization For the Purpose of:: To decrease pain, To decrease swelling/inflammation, To increase ROM, To improve nutrient delivery to tissue Please do not hesitate to contact me at [phone] by phone or if you have questions or concerns regarding this new plan of care! Sincerely, Vasyl Vick DPT
--- NOTE | 2021-02-05 14:50 | HP.PTREVAL ---
Dr. Chantel García MD, It has been my pleasure to treat JOSY HOPPER over the last 5 visits for psoriatic arthritis, fibromyalgia, and cervical spondylosis. Please see the progress note below for an update on the physical therapy plan of care! Subjective: Pt. reports overall doing better. She reports having an injection in her R knee which has helped. Pt. continues to report increased stiffness in her neck, R sided worse than L. Objective/Function: Pt. has min loss with cervical extension and rotation bilat. Mod loss with SB bilaterally. Pt. had good B shoulder ROM. She continues to have tenderness at BUT and B levator scap. Pt. has tightness noted with similar muscle bellies as well. Pt. is sleeping well. Her largest complaint is with reaching during jigsaw puzzles and crocheting. pt. continues to progress well with seeing her intermittently. She is progressing with he tolerance to ADls and IADLs. She is consistent with her HEP without issues. Pt. is progressing as expected. Plan Plan: Start with manual stretching and DFM to cervical spine. Add in DN and contract relax techniques. Pt. to add in SNAGs for cervical ROM. Balance/Gait/Functional tests - Balance/Special Test Scores Oswestry Neck Score: 10 Goals Goal 1:: LTG: Pt. to be I with HEP. Goal Time Frame: 4-6 Weeks Goal Progress: Goal Met Goal 2:: STG: Pt. to sleep throughout the night with 0-1/10 pain in cervical spine Goal Time Frame: 2-4 Weeks Goal Progress: Goal Met Goal 3:: LTG: pt. to be able to demonstrate proper posture throughout PT session, indicating improved postural awareness. Goal Time Frame: 4-6 Weeks Goal Progress: Goal Met Goal 4:: LTG: Pt. to have increased cervical spine ROM by 25% in all directions without increase in symptoms. Goal Time Frame: 4-6 Weeks Goal Progress: Progressing Anticipated Interventions Patient/Client Instruction: Educate patient on: Condition, Plan of Care, Risk Factors, Benefits of Fitness Program For the Purpose of:: To improve self management, To prevent re-injury, To improve ability to perform tasks related to life management, To improve tolerance to ADL's Therapeutic Exercise to Include: Strength training, Power training, Postural training, Flexibilty training, Passive ROM, Active ROM, Dalia Exercises, Scapular Strength/Stabilization For the Purpose of:: To decrease pain, To increase ROM, To increase oxygenation perfusion, To improve muscle performance and motor function, To decrease soft tissue restriction, To increase flexibility/ROM, To improve endurance Manual Therapy Techniques to Include: Mobilization, Passive ROM, Functional dry needling, Soft tissue mobilization For the Purpose of:: To decrease pain, To decrease swelling/inflammation, To increase ROM, To improve nutrient delivery to tissue Please do not hesitate to contact me at [phone] by phone or if you have questions or concerns regarding this new plan of care! Sincerely, Vasyl iVck DPT
--- NOTE | 2021-05-15 09:09 | HP.PTREVAL ---
Dr. Chantel García MD, It has been my pleasure to treat JOSY HOPPER over the last 8 visits for psoriatic arthritis, fibromyalgia, and cervical spondylosis. Please see the progress note below for an update on the physical therapy plan of care! Subjective: Pt. reports overall doing well. I feel like I do well for 3-4 weeks then my neck starts to tighten up again. She reports general overall improvement. 2/10 pain in B UT currently. It really just feels tight. Objective/Function: Pt. did well with PT this date. Her posture is improving. She does well with her exercises at home. I want her to continue with mid rows, LAE and cervical retraction at home. Use of DN PRN. MMT: RUE: shoulder: flexion 17.3#, abd 14.5#, ext 28.3#, rhomboids 8.2#, mid trap 7.1#. LUE: shoulder: flexion 16.3#, abd 15.2#, ext 27.1#, mid trap 7.9#, mid trap 6.3#. Plan Plan: Pt. to have continue with postural strengthening for the next 3-4 weeks with progression of reps and resistance as tolerated. Balance/Gait/Functional tests - Balance/Special Test Scores Oswestry Neck Score: 7 Goals Goal 1:: LTG: Pt. to be I with HEP. Goal Time Frame: 4-6 Weeks Goal Progress: Goal Met Goal 2:: STG: Pt. to sleep throughout the night with 0-1/10 pain in cervical spine Goal Time Frame: 2-4 Weeks Goal Progress: Goal Met Goal 3:: LTG: pt. to be able to demonstrate proper posture throughout PT session, indicating improved postural awareness. Goal Time Frame: 4-6 Weeks Goal Progress: Goal Met Goal 4:: LTG: Pt. to have increased cervical spine ROM by 25% in all directions without increase in symptoms. Goal Time Frame: 4-6 Weeks Goal Progress: Progressing Goal 5:: LTG: Pt. to have increased rhomboid and mid strength strength by 10# of force allowing for increased stability throughout thoracic and cervcial spine. Goal Progress: Progressing Anticipated Interventions Patient/Client Instruction: Educate patient on: Condition, Plan of Care, Risk Factors, Benefits of Fitness Program For the Purpose of:: To improve self management, To prevent re-injury, To improve ability to perform tasks related to life management, To improve tolerance to ADL's Therapeutic Exercise to Include: Strength training, Power training, Postural training, Flexibilty training, Passive ROM, Active ROM, Dalia Exercises, Scapular Strength/Stabilization For the Purpose of:: To decrease pain, To increase ROM, To increase oxygenation perfusion, To improve muscle performance and motor function, To decrease soft tissue restriction, To increase flexibility/ROM, To improve endurance Manual Therapy Techniques to Include: Mobilization, Passive ROM, Functional dry needling, Soft tissue mobilization For the Purpose of:: To decrease pain, To decrease swelling/inflammation, To increase ROM, To improve nutrient delivery to tissue Please do not hesitate to contact me at [phone] by phone or if you have questions or concerns regarding this new plan of care! Sincerely, LEONARD BecerraT
== END 2021-05-28 19:00 | disposition home or self-care (01) ==
LOC: PT 10:00
PROVIDERS: PCP Internal Medicine; Referring Provider Internal Medicine Rheumatology; Visit Provider Internal Medicine Rheumatology
DX: L40.59 Other psoriatic arthropathy (principal); Z79.899 Other long term (current) drug therapy; M79.7 Fibromyalgia; L40.9 Psoriasis, unspecified; M17.0 Bilateral primary osteoarthritis of knee; M47.892 Other spondylosis, cervical region; Q66.70 Congenital pes cavus, unspecified foot; F32.89 Other specified depressive episodes; E78.5 Hyperlipidemia, unspecified; G47.33 Obstructive sleep apnea (adult) (pediatric)
CPT/HCPCS: 97110; 97161; 97164

== ENCOUNTER 2021-05-28 10:37 | Outpatient (CLI) | payer MEDICARE, OTHER, SELFPAY ==
[2021-05-28 12:20] LABS: Absolute Lymphocyte Count 1.09 X10^3/uL (0.83-4.51); Absolute Neutrophil Count 3.2 X10^3/uL (2.0-7.7); Basophil# 0.04 X10^3/uL; Basophil% 0.8 % (0-1); Eosinophil# 0.19 X10^3/uL; Eosinophils% 3.6 % (0-5); Hematocrit 35.8 % (37-47); Hemoglobin 11.9 g/dL (12.0-15.0); Lymphocyte # 1.09 X10^3/ul (0.83-4.51); Lymphocyte % 20.9 % (19-41); Mean Corp Hgb Conc 33.2 g/dL (32-36); Mean Corpuscular Hgb 32.8 pg (27.0-32.0); Mean Corpuscular Volume 98.6 fL (81-99); Mean Platelet Vol. 9.6 fl (6.2-12.0); Monocyte# 0.68 X10^3/uL; Monocyte% 13.1 % (0-10); NRBC Flagged by Analyzer 0 % (0-5); Neutrophil % 61.4 % (47-70); Platelet Count 263 K/mm3 (150-450); RBC Distribution Width CV 13.2 % (11.6-14.6); RBC Distribution Width SD 47.7 fl (35.1-43.9); Red Blood Count 3.63 M/mm3 (4.2-5.4); White Blood Count 5.2 K/mm3 (4.4-11.0)
[2021-05-28 12:36] LABS: ALB/GLOB Ratio 1.2 RATIO (0.9-2.4); AST(SGOT) 27 U/L (15-37); Alanine Aminotransfer ALT/SGPT 31 U/L (13-56); Albumin, Serum 3.7 g/dL (3.2-5.0); Alkaline Phosphatase 77 U/L (45-117); Anion Gap 4 (5-15); BUN 18 mg/dL (7-18); BUN/Creat Ratio 19.6 RATIO (10-20); Calcium,Total 9.1 mg/dL (8.5-10.1); Chloride 105 mmol/L (98-107); Creatinine, Serum 0.92 mg/dL (0.55-1.02); EST Glomerular Filtration Rate 64 mL/min (>60); Est Glom Filt Rate - Afr Amer 77 mL/min (>60); Globulin 3.2 g/dL (2.2-4.2); Glucose 108 mg/dL (74-106); Potassium 4.2 mmol/L (3.5-5.1); Protein, Total 6.9 g/dL (6.4-8.2); Sodium Level 140 mmol/L (136-145)
== END 2021-05-28 23:59 | disposition home or self-care (01) ==
LOC: MTLAB 10:39
PROVIDERS: PCP Internal Medicine; Referring Provider Internal Medicine Rheumatology; Visit Provider Internal Medicine Rheumatology
DX: L40.59 Other psoriatic arthropathy (principal); M79.7 Fibromyalgia; L40.9 Psoriasis, unspecified; M25.561 Pain in right knee; M47.892 Other spondylosis, cervical region; Q66.70 Congenital pes cavus, unspecified foot; F32.89 Other specified depressive episodes; E78.5 Hyperlipidemia, unspecified; G47.33 Obstructive sleep apnea (adult) (pediatric); Z79.899 Other long term (current) drug therapy
CPT/HCPCS: 36415; 80053; 85025

== ENCOUNTER 2021-06-24 10:07 | Outpatient (RCR) | payer MEDICARE, OTHER, SELFPAY | END 2021-06-24 19:00 | disposition home or self-care (01) | LOC: PT 10:07 | PROVIDERS: PCP Internal Medicine | DX: R69 Illness, unspecified (principal) ==

== ENCOUNTER → 2021-09-15 | Outpatient (CLI) | payer MEDICARE, OTHER, SELFPAY ==
[2021-09-15 14:50] LABS: Absolute Lymphocyte Count 1.35 X10^3/uL (0.83-4.51); Absolute Neutrophil Count 3.6 X10^3/uL (2.0-7.7); Basophil# 0.05 X10^3/uL; Basophil% 0.9 % (0-1); Eosinophil# 0.22 X10^3/uL; Eosinophils% 3.8 % (0-5); Hematocrit 35.3 % (37-47); Hemoglobin 11.3 g/dL (12.0-15.0); Lymphocyte # 1.35 X10^3/ul (0.83-4.51); Lymphocyte % 23.1 % (19-41); Mean Corpuscular Hgb 32.1 pg (27.0-32.0); Mean Corpuscular Volume 100.3 fL (81-99); Mean Platelet Vol. 9.5 fl (6.2-12.0); Monocyte# 0.59 X10^3/uL; Monocyte% 10.1 % (0-10); NRBC Flagged by Analyzer 0 % (0-5); Neutrophil # 3.61 X10^3/uL (2.7-7.7); Neutrophil % 61.8 % (47-70); Platelet Count 259 K/mm3 (150-450); RBC Distribution Width CV 13.5 % (11.6-14.6); RBC Distribution Width SD 49.9 fl (35.1-43.9); Red Blood Count 3.52 M/mm3 (4.2-5.4); White Blood Count 5.8 K/mm3 (4.4-11.0)
[2021-09-15 15:22] LABS: ALB/GLOB Ratio 1.2 RATIO (0.9-2.4); AST(SGOT) 24 U/L (15-37); Alanine Aminotransfer ALT/SGPT 29 U/L (13-56); Albumin, Serum 3.6 g/dL (3.2-5.0); Alkaline Phosphatase 68 U/L (45-117); Anion Gap 7 (5-15); BUN 22 mg/dL (7-18); BUN/Creat Ratio 24.9 RATIO (10-20); Calcium,Total 8.9 mg/dL (8.5-10.1); Chloride 104 mmol/L (98-107); Creatinine, Serum 0.88 mg/dL (0.55-1.02); EST Glomerular Filtration Rate 67 mL/min (>60); Est Glom Filt Rate - Afr Amer 81 mL/min (>60); Glucose 104 mg/dL (74-106); Protein, Total 6.6 g/dL (6.4-8.2); Sodium Level 141 mmol/L (136-145)
== END | disposition home or self-care (01) ==
LOC: MTLAB 13:36
PROVIDERS: PCP Internal Medicine; Referring Provider Internal Medicine Rheumatology; Visit Provider Internal Medicine Rheumatology
DX: L40.59 Other psoriatic arthropathy (principal); M79.7 Fibromyalgia; L40.9 Psoriasis, unspecified; M17.0 Bilateral primary osteoarthritis of knee; M47.892 Other spondylosis, cervical region; Q66.70 Congenital pes cavus, unspecified foot; F32.89 Other specified depressive episodes; E78.5 Hyperlipidemia, unspecified; G47.33 Obstructive sleep apnea (adult) (pediatric); Z79.899 Other long term (current) drug therapy
CPT/HCPCS: 36415; 80053; 85025

== ENCOUNTER → 2022-03-10 | Outpatient (CLI) | payer MEDICARE, OTHER, SELFPAY ==
[2022-03-10 14:52] LABS: Absolute Lymphocyte Count 1.23 X10^3/uL (0.83-4.51); Absolute Neutrophil Count 4.7 X10^3/uL (2.0-7.7); Basophil# 0.04 X10^3/uL; Basophil% 0.6 % (0-1); Eosinophil# 0.15 X10^3/uL; Eosinophils% 2.2 % (0-5); Hematocrit 36.2 % (37-47); Hemoglobin 11.4 g/dL (12.0-15.0); Lymphocyte # 1.23 X10^3/ul (0.83-4.51); Lymphocyte % 17.8 % (19-41); Mean Corp Hgb Conc 31.5 g/dL (32-36); Mean Corpuscular Hgb 32.2 pg (27.0-32.0); Mean Corpuscular Volume 102.3 fL (81-99); Mean Platelet Vol. 9.4 fl (6.2-12.0); Monocyte# 0.76 X10^3/uL; NRBC Flagged by Analyzer 0 % (0-5); Neutrophil # 4.69 X10^3/uL (2.7-7.7); Platelet Count 273 K/mm3 (150-450); RBC Distribution Width CV 13.5 % (11.6-14.6); RBC Distribution Width SD 50.4 fl (35.1-43.9); Red Blood Count 3.54 M/mm3 (4.2-5.4); White Blood Count 6.9 K/mm3 (4.4-11.0)
[2022-03-10 15:06] LABS: ALB/GLOB Ratio 1.2 RATIO (0.9-2.4); AST(SGOT) 27 U/L (15-37); Alanine Aminotransfer ALT/SGPT 34 U/L (13-56); Albumin, Serum 3.7 g/dL (3.2-5.0); Alkaline Phosphatase 80 U/L (45-117); Anion Gap 5 (5-15); BUN 27 mg/dL (7-18); BUN/Creat Ratio 30.6 RATIO (10-20); Calcium,Total 9.3 mg/dL (8.5-10.1); Chloride 104 mmol/L (98-107); Creatinine, Serum 0.88 mg/dL (0.55-1.02); EST Glomerular Filtration Rate 67 mL/min (>60); Est Glom Filt Rate - Afr Amer 81 mL/min (>60); Globulin 3.1 g/dL (2.2-4.2); Glucose 100 mg/dL (74-106); Potassium 4.1 mmol/L (3.5-5.1); Protein, Total 6.8 g/dL (6.4-8.2); Sodium Level 140 mmol/L (136-145)
== END | disposition home or self-care (01) ==
LOC: MTLAB 13:32
PROVIDERS: PCP Internal Medicine; Referring Provider Internal Medicine Rheumatology; Visit Provider Internal Medicine Rheumatology
DX: L40.59 Other psoriatic arthropathy (principal); Z79.899 Other long term (current) drug therapy
CPT/HCPCS: 36415; 80053; 85025

== ENCOUNTER 2022-03-16 11:30 | Outpatient (RCR) | payer MEDICARE, OTHER, SELFPAY ==
--- NOTE | 2022-01-07 10:41 | HP.PTEVAL_ITS ---
Patient's Visit Information JOSY HOPPER is a 71 year old F referred to Physical Therapy by Dr. Chantel García MD with a diagnosis of cervicalgia. Date of Evaluation: 12/22/21 Physical Therapist: Vasyl Vick DPT - Visit Plan Frequency: 1-2x /Week Duration: 6 Weeks Plan: Start with manual stretching including contract relax exercises. Manual inhibition techniques. DN as need to B UT and cervical erector spinae. - Subjective Pt. is here today for her initial evaluation with diagnosis of cervicalgia. Pt. is familiar to this patient. She reports over the past few months having increased neck pain and B UT tightness. Pt. reports doing well with strengthening, but continues to have increased tightness with increased activities. Pt. does light stretching and light postural strengthening exercises. Pt. denies radicular symptoms and no N/T in either UE. Pt. reports no sudden weakness in either UE as well. She does have a PMH of fibro, psoriatic arthritis. Pt. reports having improvement with manual and DN, along with some postural correction exercises in past. Pt. reports increased pain with looking down and with ADLs. No issues with driving, no issues with sleeping. Pt. is hopeful to reduce tightness in order to complete all household activities and ADLs without limitaitons. - Pain cervical spine Pain Intensity (Out of 10): 2 Pain Intensity Range: 0, 6 - Objective POSTURE: Pt. has slight FH posture and increased thoracic kyphosis. PALPATION: Pt. has tenderness at B cervical erector spinae, B UT , B levator scapulae. NEURO: Pt. has normal sensation to light and sharp touch. Pt. normal DTR of BUEs. ROM: CERVICAL SPINE: flexion min loss increase NW, ext mod loss increase NW, rotation min loss bilat increase NW, SB min loss bilat increase NW. Pt. has slight tightness with B shoulder flexion and functional IR motions - Special Tests C/S Radiculapathy - Left Upper limb tension test: Negative C/S Radiculapathy - Right Upper limb tension test: Negative C/S Radiculapathy - Left Spurlings: Negative C/S Radiculapathy - Right Spurlings: Negative C/S Radiculapathy - Left Cervical distraction: Negative C/S Radiculapathy - Right Cervical distraction: Negative C/S Radiculapathy - Left Relief test: Negative C/S Radiculapathy - Right Relief test: Negative C/S Radiculapathy - Valsalva: Negative Sharp Demi: Negative Vertebral Artery Test: Negative Alar Ligament Test: Negative Cervical Sitting: Protrusion - Mechanical Response: No effect Cervical Sitting: Protrusion - Symptoms During Testing: No effect Cervical Sitting: Protrusion - Symptoms After Testing: No effect Cervical Sitting: Retraction - Mechanical Response: No effect Cervical Sitting: Retraction - Symptoms During Testing: Decreases Cervical Sitting: Retraction - Symptoms After Testing: No better Cervical Sitting: Retraction-Extension - Mechanical Response: No effect Cerv Sitting: Retraction-Extension - Symptoms During Testing: No effect Cerv Sitting: Retraction-Extension - Symptoms After Testing: No effect Cervical Sitting: Sidebend Right - Mechanical Response: No effect Cervical Sitting: Sidebend Right - Symptoms During Testing: No effect Cervical Sitting: Sidebend Right - Symptoms After Testing: No effect Cervical Sitting: Sidebend Left - Mechanical Response: No effect Cervical Sitting: Sidebend Left - Symptoms During Testing: No effect Cervical Sitting: Sidebend Left - Symptoms After Testing: No effect Cervical Sitting: Rotation Right - Mechanical Response: No effect Cervical Sitting: Rotation Right - Symptoms During Testing: No effect Cervical Sitting: Rotation Right - Symptoms After Testing: No effect Cervical Sitting: Rotation Left - Mechanical Response: No effect Cervical Sitting: Rotation Left - Symptoms During Testing: No effect Cervical Sitting: Rotation Left - Symptoms After Testing: No effect Cervical Sitting: Flexion - Mechanical Response: No effect Cervical Sitting: Flexion - Symptoms During Testing: No effect Cervical Sitting: Flexion - Symptoms After Testing: No effect - Balance/Special Test Scores Oswestry Neck Score: 20 - Goals Goal 1:: LTG: Pt. to be I with HEP for postural re education and cervical ROM. Goal Time Frame: 4-6 Weeks Goal 2:: STG: Pt. to have increased cervical ROM by 25% in all directions. Goal Time Frame: 2-4 Weeks Goal 3:: STG: Pt. to report decreased muscle tightness throughout cervical spine. Goal Time Frame: 2-4 Weeks Goal 4:: LTG: Pt. to demonstrate proper cervical and thoracic posture throughout therapy session Goal Time Frame: 4-6 Weeks - Rehabilitation Potential Physical Therapy Diagnosis: Pt. is here today for her initial evaluation with diagnosis of cervicalgia. Pt. has marked increased B UT and cervical erector spinae muscle tone. She does not have any radicular symptoms. Pt. does have stiffness into all ranges of cervical ROM and would benefit from PT to increase her cervical ROM and decrease muscle tone in the same region. Rehabilitation Potential: Excellent - Anticipated Interventions Patient/Client Instruction: Educate patient on: Condition, Plan of Care, Risk Factors, Benefits of Fitness Program For the Purpose of:: To foster healthy habits, To improve decision making, To facilitate caregiver knowledge, To improve self management, To prevent re-in jury, To improve ability to perform tasks related to life management Therapeutic Exercise to Include: Strength training, Power training, Postural training, Flexibilty training, Passive ROM, Active ROM, Dalia Exercises, Scapular Strength/Stabilization For the Purpose of:: To decrease pain, To increase ROM, To improve nutrient delivery to tissue, To increase oxygenation perfusion, To improve health of tissue, To decrease soft tissue restriction, To increase flexibility/ROM Manual Therapy Techniques to Include: Massage, Mobilization, Passive ROM, Functional dry needling, Soft tissue mobilization For the Purpose of:: To decrease pain, To decrease swelling/inflammation, To increase ROM, To improve nutrient delivery to tissue, To increase oxygenation perfusion Thank you for the opportunity to evaluate your patient. For Medicare and Medicare HMO plans, please review the plan of care and approve it. It will need to be FAXED BACK to us at [phone] for Medicare purposes. For Medicare only, by signing this I certify the plan of care. Please let me know if there are questions or concerns regarding this plan of care. Physician Signature: Date:
== END 2022-03-16 19:00 | disposition home or self-care (01) ==
LOC: PT 11:30
PROVIDERS: PCP Internal Medicine; Referring Provider Internal Medicine Rheumatology; Visit Provider Internal Medicine Rheumatology
DX: M47.892 Other spondylosis, cervical region (principal)
CPT/HCPCS: 97110; 97140; 97161

== ENCOUNTER → 2022-07-31 | Outpatient (CLI) | payer MEDICARE, OTHER, SELFPAY ==
--- NOTE | 2022-07-31 15:07 | CT_ITS ---
EXAM: CT RIGHT LOWER EXTREMITY WITHOUT INTRAVENOUS CONTRAST CLINICAL INDICATION: RIGHT KNEE PAIN *EDWIN PROTOCOL* TECHNIQUE: Helically acquired images were obtained of the right lower extremity without intravenous contrast. 2-D reformats were performed by the technologist. This CT exam was performed using one or more of the following dose reduction techniques: automated exposure control, adjustment of the mA and/or kV according to patient size, and/or use of iterative reconstruction technique. RADIATION DOSE: CTDIvol = 19.15 mGy, DLP = 1407.83 mGy-cm COMPARISON: No relevant prior studies available. FINDINGS: BONES/JOINTS: Right hemipelvis is partially included. Intact right hip. Intact proximal right femur and acetabulum. No significant hip joint narrowing. There is severe medial joint space narrowing with subchondral sclerosis and periarticular osteophytes involving the medial joint compartment. The lateral joint compartment space is well maintained but there is mild calcification of the lateral meniscus. Slightly irregular contour of the cortical margins of the medial joint compartment with small fissures. Well-maintained patellofemoral joint compartment. Mild knee joint effusion. The ankle joint is symmetric. Tiny ossific density posterior to the lateral talus appears chronic. Slight gas in the medial and lateral ankle joint. Well-maintained joint spaces. No fracture. SOFT TISSUES: Unremarkable. No soft tissue swelling or gas. No radiopaque foreign body. CT/Extremity Lower without Contra IMPRESSION: 1. Exam includes the hip, knee and ankle. 2. Advanced degenerative change of the knee with small joint effusion. Electronically Signed: Jessenia Fallon MD at 23:22 EDT ,
== END | disposition home or self-care (01) ==
LOC: CT 15:02
PROVIDERS: PCP Internal Medicine; Referring Provider Orthopaedic Surgery; Visit Provider Orthopaedic Surgery
DX: M25.561 Pain in right knee (principal)
CPT/HCPCS: 73700

== ENCOUNTER 2022-08-11 11:00 | Outpatient (RCR) | payer MEDICARE, OTHER, SELFPAY ==
--- NOTE | 2022-07-07 16:55 | HP.PTEVAL_ITS ---
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 Date of Evaluation: 06/30/22 Physical Therapist: Vasyl Vick DPT - Visit Plan Frequency: 1-2x /Week Duration: 6 Weeks Plan: Start with DN and manual to B levator scap and upper trap regions. Add in mid trap and postural strengthening. Progress to HEP. - Subjective Pt. is here today for her initial evaluation with diagnosis of fibromyalgia, and psoriatic arthritis with subsequent neck and R scapular pain. Pt. is known to this PT as I have seen her previously. Pt. reports increased pain with her neck and shoulder at times. Pain in worse in AMs, but does not seem to loosen up as the day progresses. She reports no N/T in either UE. No radicular symptoms noted. Pt. has recently changes some medications which she feels like she is doing better with. Pt. tries to stay active, but has been having some pain and has reduced some of her exercises. Pt. is hopeful to reduce symptoms in order to complete all daily and recreational activities without limitations. - Pain R side of scapular region Pain Intensity (Out of 10): 2 Pain Intensity Range: 0, 5 Cervical spine Pain Intensity (Out of 10): 2 Pain Intensity Range: 0, 5 - Objective POSTURE: Pt. has FH posture, rounded shoulders. Pt. is able to correct, but falls back into this posture with out cuing. PALPATION: Pt. has increased tenderness at B UT , B levator scapulae and B mid trap regions. No as much with sub occipitals this date. NEURO: Normal. ROM: CERVICAL SPINE: flexion min loss increase NE, ext min loss increase NW, rotation min loss NE, SB min loss stretch on both sides. Normal scapular ROM, no dyskinesia noted. MMT: B shoulder 5-/5 throughout. No increase in symptoms noted with trials. Pt. did have increased . Pt. has some weakness with B mid trap and lower trap. - Special Tests R Shoulder Lift Off Test - Subscapular Tear: Negative R Shoulder Drop Sign - IS Test: Negative R Shoulder Empty Can - SS: Negative R Shoulder Belly Press - SupScap: Negative R Shoulder Neer - Impingement: Negative R Shoulder [place] - Impingement: Negative R Shoulder Speeds Test - Labrum/Biceps: Negative R Shoulder Sulcus Sign - Inferior Laxity: Negative R Shoulder AC Resisted - AC: Negative - Balance/Special Test Scores Lower Extremity Functional Score: 47 - Goals Goal 1:: LTG: Pt. to be I with HEP. Goal Time Frame: 4-6 Weeks Goal 2:: LTG: Pt. to be able to demonstrate improved posture throughout therapy session indicating improved postural awareness. Goal Time Frame: 4-6 Weeks Goal 3:: LTG: Pt. to be able to sleep throughout the night without increase in symptoms. Goal Time Frame: 4-6 Weeks Goal 4:: LTG: Pt. have increased scapular and periscapular strength reducing stress to this region with all daily and recreational activities. Goal Time Frame: 4-6 Weeks - Rehabilitation Potential Physical Therapy Diagnosis: Pt. has signs and symptoms consistent with fibromyalgia, and psoriatic arthritis with subsequent neck and R scapular pain. Pt. presents with some myofascial pain along with weakness of her scapular region. She would benefit from PT to work on her soft tissue issues and work on scapular strengthening in order to reduce stress to this region with her daily activities. Rehabilitation Potential: Excellent - Anticipated Interventions Patient/Client Instruction: Educate patient on: Condition, Plan of Care, Risk Factors, Benefits of Fitness Program For the Purpose of:: To foster healthy habits, To improve decision making, To facilitate caregiver knowledge, To improve self management, To prevent re- injury, To improve ability to perform tasks related to life management Therapeutic Exercise to Include: Strength training, Endurance training, Postural training, Flexibilty training, Active ROM, Scapular Strength/Stabilization For the Purpose of:: To decrease pain, To increase ROM, To improve nutrient delivery to tissue, To increase oxygenation perfusion, To improve muscle performance and motor function, To improve ability to perform ADL's Manual Therapy Techniques to Include: Mobilization, Functional dry needling For the Purpose of:: To decrease pain, To decrease swelling/inflammation, To improve nutrient delivery to tissue, To increase oxygenation perfusion, To improve muscle performance and motor function Thank you for the opportunity to evaluate your patient. For Medicare and Medicare HMO plans, please review the plan of care and approve it. It will need to be FAXED BACK to us at [phone] for Medicare purposes. For Medicare only, by signing this I certify the plan of care. Please let me know if there are questions or concerns regarding this plan of care. Physician Signature: Date:
== END 2022-08-11 19:00 | disposition home or self-care (01) ==
LOC: PT 11:00
PROVIDERS: PCP Internal Medicine; Referring Provider Internal Medicine; Visit Provider Internal Medicine
DX: F43.21 Adjustment disorder with depressed mood (principal); L40.50 Arthropathic psoriasis, unspecified; M79.7 Fibromyalgia
CPT/HCPCS: 97110; 97140; 97161

== ENCOUNTER → 2023-03-25 | Outpatient (CLI) | payer MEDICARE, OTHER, SELFPAY ==
--- NOTE | 2023-03-25 12:39 | CT_ITS ---
CT LEFT LOWER EXTREMITY WITH 3-D IMAGING CLINICAL INDICATION: PRE OP WASC TECHNIQUE: Axial CT images of the left lower extremity (including left hip, left knee, and left ankle) was performed without IV contrast material. Coronal and sagittal reformats were provided. RADIATION DOSAGE (If Supplied By Facility): CTDIvol = ( 18.80 ) mGy, DLP = ( 1103.35 ) mGycm COMPARISON: No relevant prior comparison study available. FINDINGS: Bones: Normal left hip joint. There is mild pubic symphysis arthrosis. There is severe degenerative arthrosis in the medial femorotibial compartment of the left knee with joint space narrowing, small marginal osteophyte formation, and subchondral sclerosis/cyst formation on both sides of the joint. There is mild degenerative arthrosis of the patellofemoral and lateral femorotibial compartments with small marginal osteophyte formation. Normal left ankle joint. Osseous structures are intact without evidence of fracture or dislocation. No lytic or blastic osseous masses. Soft Tissues: There is mild chondrocalcinosis of the medial and lateral menisci of the left knee. There is a small knee joint effusion. The deep soft tissue structures are unremarkable. The superficial soft tissues are unremarkable without evidence of edema, hematoma, or foreign body. CT/Extremity Lower without Contra IMPRESSION: Tricompartment degenerative arthrosis of the left knee joint, most severe in the medial femorotibial compartment. Small knee joint effusion. Electronically Signed: Popeye Bauman MD at 15:57 EST ,
--- NOTE | 2023-03-25 12:40 | EKG12_ITS ---
Test Reason : PRE OP Blood Pressure : / mmHG Vent. Rate : 073 BPM Atrial Rate : 073 BPM P-R Int : 138 ms QRS Dur : 080 ms QT Int : 398 ms P-R-T Axes : 035 063 075 degrees QTc Int : 438 ms Normal sinus rhythm with sinus arrhythmia Normal ECG Confirmed by MARIAN QUIÑONES, ANU ([id number]), film editor supervisor GENTRY RICKS ([id number]) on 03/26/2023 7:53:54 AM Referred By: Eloy Wellington Confirmed By:ANU FONSECA MD
--- OUTSIDE RECORDS SUMMARY | 2023-03-25 13:04 | XMS RPT_ITS | CCD ---
Author Name Unknown Address [id number] [place] [address] Organization [facility] Care Team Providers Care Insulation Power Unit Tender Name Role Phone Elvie Glez MD Primary Care Provider SHELLY QUIÑONES, DR BERMEO Primary Care Physician BOUCHRA QUIROZ, DR NIX Attending Unavailruma e SHELLY QUIÑONES, DR BERMEO Primary Care Unavailable Elvie Glez MD Primary Care Provider SHELLY ELVIE D Primary Care Unavailable TALAMPAS, ELVIE D Referring Unavailable JOSY ALVARADO Referring Unavailable TALAMPAS, ELVIE D Primary Care Unavailable VINCENT, JACKLYN Referring Unavailable PEUGH, HATTIE Attending Unavailable TALAMPAS, ELVIE D Primary Care Unavailable TALAMPAS, ELVIE D Primary Care Unavailable PEUGH, HATTIE Referring Unavailable TALAMPAS, ELVIE D Primary Care Unavailable PEJULIAN, HATTIE Referring Unavailable TALAMPAS, ELVIE D Primary Care Unavailable PEUGH, HATTIE Referring Unavailable TALAMPAS, ELVIE D Primary Care Unavailable PEUGH, HATTIE Referring Unavailable TALAMPAS, ELVIE D Primary Care Unavailable VINCENT, JACKLYN Referring Unavailable TALAMPAS, ELVIE D Primary Care Unavailable PEUGHHATTIE Attending Unavailable PEJULIAN HATTIE Referring Unavailable TALAMPAS, ELVIE D Attending Unavailable TALAMPAS, ELVIE D Primary Care Unavailable ROBYN MANUEL Attending Unavailable TALAMPAS, ELVIE D Primary Care Unavailable PEUGH, HATTIE Referring Unavailable PEUGH, HATTIE Attending Unavailable TALAMPAS, ELVIE D Primary Care Unavailable TALAMPAS, ELVIE D Referring Unavailable TALAMPAS, ELVIE D Primary Care Unavailable VINCENT, JACKLYN Referring Unavailable TALAMPAS, ELVIE D Attending Unavailable TALAMPAS, ELVIE D Primary Care Unavailable Allergies Allergy Classification Reported Allergen(s) Allergy Type Date of Onset Reaction(s) Facility (15 sources) celecoxib; Translations: [CELECOXIB] Drug Allergy 5 GI Upset [facility] Work Phone: (14 sources) laundry detergent [Other] Propensity to adverse reactions 6 Rash [facility] Work Phone: (15 sources) Perfumes; Translations: [PERFUMES] Propensity to adverse reactions 6 Rash [facility] Work Phone: (1 source) OTHER; Translations: [OTHER] Propensity to adverse reactions (disorder) 6 [facility] Repository Medications Current Medications Medication Drug Class(es) Dates Sig (Normalized) Sig (Original) gabapentin 300 mg oral capsule (14 sources) Anti-epileptic Agent Start: 11-28-2018 End: 02-27-2027 take 1 capsule by mouth once daily at bedtime gabapentin (NEURONTIN) 300 mg capsule Take 1 capsule by mouth daily at bedtime for 180 days. 90 capsule 1 01/04/2023 07/03/2023 Active Completed/Discontinued Medications Medication Drug Class(es) Dates Sig (Normalized) Sig (Original) aspirin 81 mg oral tablet (14 sources) Platelet Aggregation Inhibitor, Nonsteroidal Anti-inflammatory Drug Start: 11-03-2004 take 1 tablet by mouth once daily ASPIRIN 81 MG ORAL TAB Take one (1) tablet daily . 0 11/03/2004 Active Problems Active Problems Problem Classification Problem Date Documented Da te Episodic/Chronic Adjustment disorders (15 sources) Adjustment disorder with depressed mood; Translations: [Adjustment disorder with depressed mood] Onset: 03-21-2007 Chronic Cardiac dysrhythmias (1 source) Other premature depolarization; Translations: [Extrasystole] Onset: 01-04-2023 Chronic Disorders of lipid metabolism (19 sources) Hypercholesterolemia ; Translations: [Pure hypercholesterolemia , unspecified] Onset: 11-03-2004 Chronic Headache; including migraine (14 sources) Migraine without aura; Translations: [Migraine without aura, not intractable, without status migrainosus] Onset: 02-09-2005 11-15-2015 Chronic Joint disorders and dislocations; trauma-related (14 sources) Patellofemoral stress syndrome; Translations: [Patellofemoral disorders, unspecified knee] Onset: 10-09-2010 03-03-2021 Chronic Malaise and fatigue (1 source) Other fatigue; Translations: [Other fatigue] Onset: 03-17-2023 Episodic Menopausal disorders (14 sources) Atrophic vaginitis; Translations: [Postmenopausal atrophic vaginitis] Onset: 10-09-2009 10-09-2009 Chronic Nutritional deficiencies (15 sources) Serum iron low; Translations: [Iron deficiency] Onset: 03-18-2009 03-18-2009 Episodic Osteoarthritis (1 source) Osteoarthritis of right knee joint; Translations: [Unilateral primary osteoarthritis, right knee] Chronic Osteoporosis (3 sources) Osteoporosis; Translations: [Other osteoporosis without current pathological fracture] Onset: 04-20-2022 Chronic Other acquired deformities (14 sources) Scoliosis of thoracic spine; Translations: [Scoliosis, unspecified] Onset: 11-23-2011 03-03-2021 Chronic Other aftercare (1 source) Other long-term (current) drug therapy; Translations: [Encounter for long-term current use of medication] Onset: 03-17-2023 Episodic Other bone disease and musculoskeletal deformities (1 source) Disorder of bone; Translations: [Disorder of bone, unspecified] Episodic Other ear and sense organ disorders (1 source) Impacted cerumen, bilateral; Translations: [Bilateral impacted cerumen] Onset: 01-04-2023 Episodic Other hematologic conditions (1 source) Other specified diseases of blood and blood-forming organs; Translations: [Macrocytosis without anemia] Onset: 03-17-2023 Chronic Other hereditary and degenerative nervous system conditions (14 sources) Restless legs; Translations: [Restless legs syndrome] Onset: 05-29-2015 05-29-2015 Chronic Other hereditary and degenerative nervous system conditions (1 source) Restless legs syndrome; Translations: [Restless legs] Onset: 03-17-2023 Chronic Other inflammatory condition of skin (15 sources) Psoriasis; Translations: [Other psoriasis] Onset: 03-13-2008 03-13-2008 Chronic Other inflammatory condition of skin (18 sources) Psoriatic arthritis; Translations: [Arthropathic psoriasis, unspecified] Onset: 05-11-2011 05-11-2011 Chronic Other inflammatory condition of skin (1 source) Arthropathic psoriasis, unspecified; Translations: [Psoriatic arthritis (HCC)] Onset: 05-11-2011 Chronic Other non-traumatic joint disorders (1 source) Pain in right knee; Translations: [Pain in joint, lower leg] Episodic Other nutritional; endocrine; and metabolic disorders (5 sources) Obese class I; Translations: [Obesity, unspecified] Onset: 08-05-2022 Chronic Residual codes; unclassified (15 sources) Obstructive sleep apnea syndrome; Translations: [Obstructive sleep apnea (adult) (pediatric)] Onset: 05-29-2015 05-29-2015 Chronic Residual codes; unclassified (1 source) Insomnia; Translations: [Other insomnia] 10-15-2022 Chronic Spondylosis; intervertebral disc disorders; other back problems (14 sources) Degeneration of thoracic intervertebral disc; Translations: [Other intervertebral disc degeneration, thoracic region] Onset: 12-18-2011 12-18-2011 Chronic Systemic lupus erythematosus and connective tissue disorders (3 sources) Mucous membrane dryness; Translations: [Sicca syndrome, unspecified] Onset: 04-09-2022 Chronic Past or Other Problems Problem Classification Problem Date Documented Da te Episodic/Chronic Miscellaneous mental health disorders (14 sources) Disorders of initiating and maintaining sleep; Translations: [Adjustment insomnia] Onset: 07-05-2006 07-05-2006 Episodic Other bone disease and musculoskeletal deformities (6 sources) Osteopenia; Translations: [Other specified disorders of bone density and structure, unspecified site] Onset: 06-19-2022 Episodic Other bone disease and musculoskeletal deformities (1 source) Disorder of bone, unspecified; Translations: [Disorder of bone, unspecified] Onset: 04-09-2022 Episodic Other connective tissue disease (17 sources) Fibromyalgia; Translations: [Fibromyalgia] Onset: 11-03-2004 12-01-2019 Episodic Other connective tissue disease (1 source) Fibromyalgia; Translations: [Fibromyalgia] Onset: 12-01-2019 Episodic Other screening for suspected conditions (not mental disorders or infectious disease) (3 sources) Patient encounter status; Translations: [Encounter for screening for osteoporosis] Onset: 03-19-2022 Episodic Results Test Name Value Interpretation Reference Range Facil ity Vital Signs Date Time Vital Sign Value Performing Clinician Faci edita 10-15-2022 11:01-0400 Diastolic blood pressure 82 mm[Hg] Hattie Brownlee MD Work Phone: [facility] 10-15-2022 11:01-0400 Heart rate 76 /min Hattie Brownlee MD Work Phone: [facility] 10-15-2022 11:01-0400 Systolic blood pressure 138 mm[Hg] Hattie Brownlee MD Work Phone: [facility] 10-15-2022 10:57-0400 Body height 161.3 cm Hattie Brownlee MD Work Phone: [facility] 10-15-2022 10:57-0400 Body temperature 97.9 [degF] Hattie Brownlee MD Work Phone: [facility] 10-15-2022 10:57-0400 Body weight 84.37 kg Hattie Brownlee MD Work Phone: [facility] 08-05-2022 11:20-0400 Body height 161.3 cm Robyn Kaleb PAINTER INTERIOR FINISH.CHEMICAL PROCESS PROJECT ENGINEER Work Phone: [facility] 08-05-2022 11:20-0400 Body weight 84.37 kg Robyn Kaleb PAINTER INTERIOR FINISH.CHEMICAL PROCESS PROJECT ENGINEER Work Phone: [facility] 08-05-2022 11:20-0400 Diastolic blood pressure 62 mm[Hg] Robyn Kaleb PAINTER INTERIOR FINISH.CHEMICAL PROCESS PROJECT ENGINEER Work Phone: [facility] 08-05-2022 11:20-0400 Heart rate 84 /min Robyn Kaleb PAINTER INTERIOR FINISH.CHEMICAL PROCESS PROJECT ENGINEER Work Phone: [facility] 08-05-2022 11:20-0400 SaO2% (BldA) [Mass fraction] 95 % Robyn Kaleb PAINTER INTERIOR FINISH.CHEMICAL PROCESS PROJECT ENGINEER Work Phone: [facility] 08-05-2022 11:20-0400 Systolic blood pressure 110 mm[Hg] Robyn Kaleb PAINTER INTERIOR FINISH.CHEMICAL PROCESS PROJECT ENGINEER Work Phone: [facility] 04-09-2022 08:08-0500 Diastolic blood pressure 73 mm[Hg] Hattie Brownlee MD Work Phone: [facility] 04-09-2022 08:08-0500 Heart rate 99 /min Hattie Brownlee MD Work Phone: [facility] 04-09-2022 08:08-0500 Systolic blood pressure 117 mm[Hg] Hattie Brownlee MD Work Phone: [facility] 04-09-2022 08:04-0500 Body height 162.6 cm Hattie Brownlee MD Work Phone: [facility] 04-09-2022 08:04-0500 Body temperature 97.11 [degF] Hattie Brownlee MD Work Phone: [facility] 04-09-2022 08:04-0500 Body weight 82.56 kg Hattie Brownlee MD Work Phone: [facility] Encounters Encounter Date Encounter Type Care Provider Facility Start: 03-17-2023 End: 03-18-2023 ambulatory ELVIE GLEZ Facility:[facility] Start: 01-29-2023 ambulatory Elvie desir MD Work Phone: [facility] [place] Procedures Date Procedure Procedure Detail Performing Clinician Start: 10-28-2022 Lipid 1996 panel - S lacie or Plasma Bone Wstr Work Phone: Start: 04-20-2022 Dxa bone density ute dy 1/> sites axial skel Hattie Brownlee MD Work Phone: Start: 03-19-2022 RADHA SCREENING W ELENA Alvarado MD Work Phone: Start: 03-19-2022 Mammography Mammograph y Coordinator Start: 03-18-2021 Mammography Elvie subramanian MD Work Phone: Start: 11-28-2020 Adult depression screening assessment Elvie Glez MD Work Phone: Start: 05-31-2014 Colonoscopy Elvie subramanian MD Work Phone: Plan of Treatment Date Care Activity Detail Author Start: 12-14-2028 Urine microalbumin profile [facility] Start: 10-29-2027 Lipid 1996 panel - S lacie or Plasma Lipid Screening [facility] Start: 06-18-2027 LIPID SCREEN LIPID SCREEN [facility] Start: 12-10-2026 LIPID SCREEN LIPID SCREEN [facility] Start: 11-20-2025 LIPID SCREEN LIPID SCREEN [facility] Start: 10-28-2025 Diabetes Screening Diabetes Screenin g [facility] Start: 04-09-2025 [facility]ABET[facility]CRE[facility] Start: 12-10-2024 DIABETES SCREEN [facility] Start: 05-31-2024 Colonoscopy COLONOSCOPY [facility] Start: 05-31-2024 COLORECTAL CANCER SCREENING COLORECTAL CANCER SCREENING [facility] Start: 01-05-2024 RSV Vaccine (1 - 1-d ose 60+ series) RSV Vaccine (1 - 1-dose 60+ series) [facility] Immunizations Immunization Date Immunization Notes Care Provider Rosales montenegro 12-18-2021 influenza, high-dose , quadrivalent vaccine (FLUZONE HIGH DOSE QUADRIVALENT) Mammography Coordinator [facility] Work Phone: 06-18-2021 COVID-19 original vaccine, age 12+ yr, monovalent (PFIZER-BIONTECH - CHAPMAN TOP) Elvie Glez MD Work Phone: [facility] 12-03-2020 COVID-19 vaccine, ag e 12+ yr (PFIZER-BIONTECH - PURPLE TOP) Elvie Glez MD Work Phone: [facility] 12-03-2020 influenza, high-dose , quadrivalent vaccine (FLUZONE HIGH DOSE QUADRIVALENT) Elvie Glez MD Work Phone: [facility] 05-30-2020 COVID-19 original vaccine, age 12+ yr, monovalent (PFIZER-BIONTECH - PURPLE TOP) Elvie Glez MD Work Phone: [facility] 05-08-2020 COVID-19 original vaccine, age 12+ yr, monovalent (PFIZER-BIONTECH - PURPLE TOP) Elvie Glez MD Work Phone: [facility] 12-01-2019 influenza, high-dose , quadrivalent vaccine (FLUZONE HIGH DOSE QUADRIVALENT) Elvie Glez MD Work Phone: [facility] 04-19-2019 zoster vaccine recombinant Elvie Glez MD Work Phone: [facility] 12-14-2018 tetanus toxoid, redu aleida diphtheria toxoid, and acellular pertussis vaccine, adsorbed Elvie Glez MD Work Phone: [facility] 12-14-2018 zoster vaccine recombinant Elvie Glez MD Work Phone: [facility] 11-28-2018 influenza, high dose seasonal, preservative-free Elvie Glez MD Work Phone: [facility] 11-24-2017 influenza, high dose seasonal, preservative-free Elvie Glez MD Work Phone: [facility] 11-20-2016 influenza, high dose seasonal, preservative-free Elvie Glez MD Work Phone: [facility] 11-29-2015 influenza, high dose seasonal, preservative-free Elvie Glez MD Work Phone: [facility] 08-13-2015 pneumococcal polysaccharide vaccine, 23 valent Elvie Glez MD Work Phone: [facility] 12-27-2014 influenza, high dose seasonal, preservative-free Elvie Glez MD Work Phone: [facility] Work Phone: 07-13-2014 pneumococcal conjuga te vaccine, 13 valent Elvie Glez MD Work Phone: [facility] 01-02-2014 influenza, seasonal, injectable Elvie Glez MD Work Phone: [facility] 12-29-2012 influenza virus vaccine, unspecified formulation Elvie Glez MD Work Phone: [facility] 11-25-2012 influenza virus vaccine, unspecified formulation Elvie Glez MD Work Phone: [facility] Work Phone: 11-23-2011 zoster vaccine, live Elvie markham MD Work Phone: [facility] 01-04-2007 influenza virus vaccine, unspecified formulation Elvie Glez MD Work Phone: [facility] Work Phone: 02-01-2006 tetanus and diphther ia toxoids, adsorbed, preservative free, for adult use (2 Lf of tetanus toxoid and 2 Lf of diphtheria toxoid) Elvie Glez MD Work Phone: [facility] 01-18-2006 influenza virus vaccine, unspecified formulation Elvie Glez MD Work Phone: [facility] Work Phone: Payers Date Payer Category Payer Private Health Insurance [id number] 2015 Private Health Insurance [facility] AARP SUPPLEMENT [id number] 2015-Present [phone] [address] [place] [address] Indemnity [id number] 2015 Private Health Insurance [facility] AARP SUPPLEMENT [id number] 2015-Present [phone] [address] [place] [address] Indemnity [id number] 2015 Unknown [id number] 2014 Medicare MEDICARE MEDICAR E A AND B [id number] 2014-Present [phone] [place] [address] Medicare [id number] 2014 Medicare MEDICARE MEDICAR E A AND B [id number] 2014-Present [phone] [place] [address] Medicare [id number] 2014 Medicare [id number] 1950 Unknown [id number] Social History Date Type Detail Facility Start: 10-24-2010 Tobacco smoking stat us [facility] Never smoked tobacco [facility] Start: 03-17-2021 End: 01-04-2023 Alcohol intake Current non-drinker of alcohol (finding) [facility] Start: 11-28-2020 End: 06-24-2022 History SDOH Alcohol Frequency 2 [facility] Start: 11-28-2020 History SDOH Alcohol Std Drinks 98 [facility] Start: 11-28-2020 End: 06-24-2022 History SDOH Alcohol Binge 1 [facility] stefanie Start: 11-28-2020 End: 06-24-2022 History SDOH Social Connections Phone 4 [facility] Start: 11-28-2020 End: 06-24-2022 History SDOH Social Connections Hoahaoism 3 [facility] Start: 11-28-2020 End: 06-24-2022 History SDOH Financial 5 [facility] Start: 11-27-2019 Education 17 [facility] Start: 1950 Sex Assigned At Not on file [facility] Start: 10-24-2010 Tobacco use and exposure Smoke less tobacco non-user [facility] Start: 12-30-2021 End: 06-24-2022 History SDOH Alcohol Std Drinks 0 [facility] Tobacco smoking status No Smokin g Status Entered [facility] Sex Assigned At Female [facility] Start: 06-24-2022 End: 08-05-2022 [facility] Start: 06-24-2022 End: 08-05-2022 Social connection and isolation panel [facility] Do you belong to any clubs or organizations such as sabianist groups, unions, fraternal or athletic groups, or school groups? Yes [facility] Are you now , , , , never or living with a partner? [facility] How often to you hav e a drink containing alcohol? Never [facility] How many standard dr inks containing alcohol do you have on a typical day? Patient does not drink [facility] Do you feel stress - tense, restless, nervous, or anxious, or unable to sleep at night because your mind is troubled all the time - these days [OSQ] To some extent [facility] (I/We) worried wheth er (my/our) food would run out before (I/we) got money to buy more. Never true [facility] In the past 12 month s, was there a time when you were not able to pay the mortgage or rent on time? No [facility] Start: 10-24-2020 Sexual orientation Choose not to disclose [facility] Do you feel stress - tense, restless, nervous, or anxious, or unable to sleep at night because your mind is troubled all the time - these days [OSQ] Only a little [facility] Clinical Notes 05-29-2015 to 01-04-2023 Hattie Brownlee MD - 10/15/2022 11:26 AM EDTPatient InstructionsTelephone Encounter - Rima Alvarado LPN - 08/10/2022 1:10 PM EDTTelephone Encounter - Robyn Manuel APRN.CNP - 08/10/2022 1:04 PM EDT Note Date & Type Note Facility 01-04-2023 Note HNO ID: [id number] Author: Elvie Glez MD Service: ? Author Type: Physician Type: Progress Notes Filed: 01/31/2023 6:04 PM Note Text: This note was created using Histogenriter. Subjective Josy Jones is a 72 year old female. HISTORY Josy Jones is a 72 year old lady here for yearly exam and follow up appointment. Noted getting over COVID illness. Mild cough and fatigue still. Had traveled and flew. Was taking Rosuvastatin 3 times weekly then increased to half tablet daily after October. Gabapentin still helping for fibromyalgia symptoms. Would like to stay on. Got off lots of other meds that no longer needs but were prescribed by Dr. García. Getting massages for neck already. Was down to 40 mg Cymbalta but had increased pain so increased back to 60mg per day. Has 60 mg pills at home. Will decide later whether can titrate down or needs to stay on higher dose. Continues to use APAP nightly and benefits from use. Did well with Right TKA. Noted that knees felt better when was in [place]. Ears feel stuffy. Diarrhea every once in a while. Gets pain and small BM then goes back and is liquidy. Had a little bit of blood once. Some trouble sleeping. If restless, will wake up to go to bathroom then can take an hour to fall back to sleep. Gets out of of bed if not able to fall back to sleep. Does not drink a log of caffeine. Gets a little out of breath going up steps. Not SOB with normal routine. Noted history of iron deficiency. Last CBC showed macrocystosis. 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 Discussed can drop off copy to scan into [facility]. PAST MEDICAL HISTORY Diagnosis Date Adjustment disorder with depressed mood 03/21/2007 [facility]. Dysthymic disorder 02/09/2005 Fibromyalgia 03/2012 Hyperlipidemia Migraine without aura, without mention of intractable migraine without mention of status migrainosus 02/09/2005 Myalgia and myositis, unspecified 11/03/2004 low back pain, cervical spondylosis, fibromyalgia Obstructive sleep apnea [facility] Other and unspecified hyperlipidemia 11/03/2004 Other psoriasis 03/13/2008 Dr. Umanzor. Postmenopausal atrophic vaginitis Psoriatic arthritis (HCC) Shingles Snoring Symptomatic menopausal or female climacteric states Unspecified hemorrhoids without mention of complication /internal Current Outpatient Medications Medication Sig DULoxetine (CYMBALTA) 20 mg capsule Take 1 capsule by mouth twice daily. As directed rosuvastatin (CRESTOR) 5 mg tablet Take 1 tablet by mouth daily at bedtime. As directed gabapentin (NEURONTIN) 300 mg capsule Take 1 capsule by mouth daily at bedtime for 90 days. (Dr. García) Magnesium Oxide 500 mg cap Takes OTC 1 per day CPAP Mask (per patient preference) optional chin strap (if indicated), filters, tubing / heated tubing, heated humidity and lifetime supplies. Dx. YAMILE G47.33 327.23 CPAP autoCPAP 5-15 cmH2O, mask, tubing, filters, heated humidity, lifetime supplies. Dx: YAMILE meloxicam 15 mg tablet Take 1 tablet by mouth once daily. (Dr. García) BIOTIN 1 MG TAB one tablet daily omega-3 fatty acids/vitamin e(FISH OIL 1,000 MG CAP) one tablet daily Calcium Carbonate-Vitamin D2 (JOSE-600 WITH VITAMIN D) 600-200 mg-unit ORAL Tab Take 1 tablet by mouth once daily. ASPIRIN 81 MG ORAL TAB Take one (1) tablet daily . MULTIVITAMIN ORAL TAB Take one(1) tablet daily. traZODone (DESYREL) 50 mg tablet Take 1 tablet by mouth daily at bedtime. traMADol 50 mg TbDL Take by mouth as needed. No current facility-administered medications for this visit. ALLERGIES Allergen Reactions Celebrex [Celecoxib] GI Upset bloating Laundry Detergent [* Rash Fabric softener also can be a problem Perfumes Rash certain types FAMILY HISTORY Problem Relation Age of Onset Breast Cancer Mother late 60s Heart Mother Hodgkin Lymphoma Brother in 2011 Heart Father dementia Lipids Brother Breast Cancer Sister 43 Mastectomy Oct 2019 other (hodkins lymphoma) Son 27 Social History Tobacco Use Smoking status: Never Smokeless tobacco: Never Vaping Use Vaping Use: Never used Substance Use Topics Alcohol use: No Drug use: No Review of Systems Objective BP 110/74 Pulse 61 Temp 36.7 ?C (98.1 ?F) Resp 18 Ht 162.5 cm (5' 3.98 ) Wt 82.1 kg (181 lb) SpO2 97% BMI 31.09 kg/m? Last 5 Encounter Wt Readings: Date: Wt: 01/04/2023 82.1 kg (181 lb) 10/15/2022 84.4 kg (186 lb) 08/05/2022 84.4 kg (186 lb) 06/19/2022 84.4 kg (186 lb) 04/09/2022 82.6 kg (182 lb) No waist measurement recorded Estimated body mass index is 31.09 kg/m? as calculated from the following: Height as of this encounter: 162.5 cm (5' 3.98 ). Weight as of this encounter: 82.1 kg (181 lb). Last 5 Encounter BP Readings: Date: BP: 01/04/2023 110/74 10/15/2022 138/82 08/05/2022 110/62 06/26/2022 138/68 06/19/2022 141 (more content not included)... [facility] 10-15-2022 Note HNO ID: [id number] Author: Hattie Brownlee MD Service: ? Author Type: Physician Type: Progress Notes Filed: 10/15/2022 11:44 AM Note Text: Rheumatology FOLLOW UP VISIT Date of Service: 10/15/2022 Patient: Josy Jones Medical Record: [id number] Primary Care Physician: Elvie Glez MD Last Rheumatology visit: 06/19/2022 (with Hattie Brownlee) Chief Complaint: Established Patient INTERVAL HISTORY Since her last visit she self titrated off of the methotrexate prior to her surgery 8 weeks ago. She has had no flares of her psoriasis or psoriatic arthritis. She denies red hot swollen joints, morning stiffness, dactylitis. She then had her right knee replaced and is overall doing well. She has some pain with kneeling on it and is now having worsening pain in her left knee. She continues to follow with orthopedics. Her biggest issue is her ongoing chronic pain with intermittent pain in her calfs, all over, and her upper back trapezius muscles. She is on gabapentin 300 mg at night, tramadol 50 mg at night, Tylenol 1000 mg twice a day. She has extremely poor sleep with difficulty falling asleep, difficulty staying asleep, and possible restless legs. She did stop her tizanidine. She is going down on her duloxetine due to weight gain per her PCP recommendation. ROS otherwise as below. RHEUMATOLOGIC HISTORY HISTORY OF PRESENT ILLNESS 1. Psoriasis 2. Psoriatic arthritis 3. Osteoarthritis 4. Fibromyalgia 5. Chronic pain syndrome Current treatments: Methotrexate, currently down titrating Tramadol 50 mg 2 times a day Tizanidine at night Gabapentin 300 mg at night Trazodone at night Tylenol Meloxicam as needed Duloxetine 60 mg Work-up: 04/09/2022: NAE 1: 160 with homogenous Negative BIMAL Vitamin D 67.8 Normal C3, C4 Normal free light chains and ratio Normal SPEP Normal UA Normal UPEP Normal UPC 04/09/2022 bilateral hand x-rays: [facility] OA 04/20/2022 DEXA: Lowest T score -1.1, osteopenia, FRAX 9.2% major, 1.2% hip 05/19/2022 synovial screen ultrasound hands and wrists: Normal bilateral Josy Jones is a 71 year old White female with a history of hypercholesterolemia, migraine, psoriasis, mood disorder, scoliosis, YAMILE on CPAP, restless legs who presents rheumatology clinic for second opinion. Chart review reveals she was evaluated by VERONICA Vincent 01/01/2022. She apparently follows with her local medical numerical control operator Dr. Peck and requested second opinion. Review of outside records demonstrates that she was last seen by her medical numerical control operator 03/17/2022 for psoriasis, psoriatic arthritis, osteoarthritis, fibromyalgia. Her current regimen includes methotrexate 20 mg p.o. once a week, folic acid 1 mg daily, leucovorin 15 mg once a week, Mobic daily as needed, Cymbalta 60 mg, tizanidine 2 mg 3 times a day, and Ultram 50 mg 3 times a day as needed. Today she presents to clinic alone. She states that her psoriasis began more than a decade ago with a red patch on her back. She did see dermatology who is prescribed her topicals. She started developing pain in her knees and back at which point she was diagnosed with psoriatic arthritis by her local medical numerical control operator. She was put on methotrexate and was uptitrated to 20 mg once a week. Her only side effect is changing her hair from curly to straight. She is unclear why she is on both folic acid and leucovorin. She thinks methotrexate has helped some but of all of her medications the tramadol helps the most. She has not had recurrence of psoriasis since being on methotrexate. Her current issue is ongoing bilateral knee pain left worse than right. She does follow with orthopedics and has had injections including steroids and gel injections. The steroid injection significantly helped. Her last one was done 01/07/2022 in both knees. She does get some morning stiffness in her back and knees. She describes chronic neck and low back pain with stiffness. She gets monthly massages which help. She describes it as muscle tightness worse in the bilateral trapezius muscles. Tramadol significantly helps she is taking 50 mg 3 times a day. She is uncertain if the tizanidine, Cymbalta, or meloxicam helps. She is unable to do all of her chores at home due to her neck and upper back pain. She has done physical therapy, dry needling, heat, massage all of which help. Rheumatologic review of systems notable for dry eyes using drops daily, dry mouth which she thinks is due to the tizanidine, 1 sore in her nose from her CPAP, dyspnea on exertion, intermittent loose stools, and rare episodes of fingers turning white in the cold. She denies fevers, night sweats, unintentional weight loss, history of uveitis, sores in her mouth, malar rash, photosensitivity, cough, congestion, chest pain, nausea, vomiting, abdominal pain, constipation, blood in her urine or stool, red hot swollen joints. Pain Evaluation Pain Evaluation (more content not included)... [facility] 10-15-2022 History of Present illness Narrative Images from the original note were not included. Rheumatology FOLLOW UP VISIT Date of Service: 10/15/2022 Patient: Josy Jones Medical Record: [id number] Primary Care Physician: Elvie Glez MD Last Rheumatology visit: 06/19/2022 (with Hattie Brownlee) Chief Complaint: Established Patient INTERVAL HISTORY Since her last visit she self titrated off of the methotrexate prior to her surgery 8 weeks ago. She has had no flares of her psoriasis or psoriatic arthritis. She denies red hot swollen joints, morning stiffness, dactylitis. She then had her right knee replaced and is overall doing well. She has some pain with kneeling on it and is now having worsening pain in her left knee. She continues to follow with orthopedics. Her biggest issue is her ongoing chronic pain with intermittent pain in her calfs, all over, and her upper back trapezius muscles. She is on gabapentin 300 mg at night, tramadol 50 mg at night, Tylenol 1000 mg twice a day. She has extremely poor sleep with difficulty falling asleep, difficulty staying asleep, and possible restless legs. She did stop her tizanidine. She is going down on her duloxetine due to weight gain per her PCP recommendation. ROS otherwise as below. RHEUMATOLOGIC HISTORY HISTORY OF PRESENT ILLNESS 1. Psoriasis 2. Psoriatic arthritis 3. Osteoarthritis 4. Fibromyalgia 5. Chronic pain syndrome Current treatments: Methotrexate, currently down titrating Tramadol 50 mg 2 times a day Tizanidine at night Gabapentin 300 mg at night Trazodone at night Tylenol Meloxicam as needed Duloxetine 60 mg Work-up: 04/09/2022: NAE 1: 160 with homogenous Negative BIMAL Vitamin D 67.8 Normal C3, C4 Normal free light chains and ratio Normal SPEP Normal UA Normal UPEP Normal UPC 04/09/2022 bilateral hand x-rays: [facility] OA 04/20/2022 DEXA: Lowest T score -1.1, osteopenia, FRAX 9.2% major, 1.2% hip 05/19/2022 synovial screen ultrasound hands and wrists: Normal bilateral Josy Jones is a 71 year old White female with a history of hypercholesterolemia, migraine, psoriasis, mood disorder, scoliosis, YAMILE on CPAP, restless legs who presents rheumatology clinic for second opinion. Chart review reveals she was evaluated by VERONICA Vincent 01/01/2022. She apparently follows with her local medical numerical control operator Dr. Peck and requested second opinion. Review of outside records demonstrates that she was last seen by her medical numerical control operator 03/17/2022 for psoriasis, psoriatic arthritis, osteoarthritis, fibromyalgia. Her current regimen includes methotrexate 20 mg p.o. once a week, folic acid 1 mg daily, leucovorin 15 mg once a week, Mobic daily as needed, Cymbalta 60 mg, tizanidine 2 mg 3 times a day, and Ultram 50 mg 3 times a day as needed. Today she presents to clinic alone. She states that her psoriasis began more than a decade ago with a red patch on her back. She did see dermatology who is prescribed her topicals. She started developing pain in her knees and back at which point she was diagnosed with psoriatic arthritis by her local medical numerical control operator. She was put on methotrexate and was uptitrated to 20 mg once a week. Her only side effect is changing her hair from curly to straight. She is unclear why she is on both folic acid and leucovorin. She thinks methotrexate has helped some but of all of her medications the tramadol helps the most. She has not had recurrence of psoriasis since being on methotrexate. Her current issue is ongoing bilateral knee pain left worse than right. She does follow with orthopedics and has had injections including steroids and gel injections. The steroid injection significantly helped. Her last one was done 01/07/2022 in both knees. She does get some morning stiffness in her back and knees. She describes chronic neck and low back pain with stiffness. She gets monthly massages which help. She describes it as muscle tightness worse in the bilateral trapezius muscles. Tramadol significantly helps she is taking 50 mg 3 times a day. She is uncertain if the tizanidine, Cymbalta, or meloxicam helps. She is unable to do all of her chores at home due to her neck and upper back pain. She has done physical therapy, dry needling, heat, massage all of which help. Rheumatologic review of systems notable for dry eyes using drops daily, dry mouth which she thinks is due to the tizanidine, 1 sore in her nose from her CPAP, dyspnea on exertion, intermittent loose stools, and rare episodes of fingers turning white in the cold. She denies fevers, night sweats, unintentional weight loss, history of uveitis, sores in her mouth, malar rash, photosensitivity, cough, congestion, chest pain, nausea, vomiting, abdominal pain, constipation, blood in her urine or stool, red hot swollen joints. Pain Evaluation Pain Evaluation 11/24/2017 04/09/2022 06/19/2022 06/26/2022 10/15/2022 Pain Score 5 7 7 7 5 Location Neck - - (No Data) - Location Comment denise shoulders - - Bilateral knees - Description Radiating;Aching Aching - - - Duration (#) 3 - - 5 - Duration (Timeframe) Years Years Weeks Years Months Frequency Continuous Continuous Intermittent Continuous Intermittent Intervention Reposition;Medication Declined - - - PATIENT-ENTERED DATA PROMIS Assessments PROMIS Assessments 04/06/2022 06/15/2022 10/12/2022 Physical Health Percentile 22 % - 22 % Mental Health Percentile 26 % - 53 % Pain Score 3 - 3 Pain Interference Percentile 12 % 10 % 10 % Fatigue Percentile 18 % 10 % 14 % Physical Function Percentile 7 % 12 % 4 % 3 Martin Activities of Daily Living 10/12/2022 1:59 PM 06/15/2022 3:20 PM 04/06/2022 6:11 PM Dress self? With SOME difficulty Without ANY difficulty Without ANY difficulty Get in and out of bed? With SOME difficulty With SOME difficulty With SOME difficulty Walk outdoors? With SOME difficulty With SOME difficulty Without ANY difficulty Wash and dry body? Without ANY difficulty With SOME difficulty With SOME difficulty Get in and out of car? With SOME difficulty With SOME difficulty With SOME difficulty RAPID 3 Disease Activity Weighed Score Levels: 0 - 1: Near Remission 1.3 - 2.0: Low Severity 2.3 - 4.0: Moderate Severity 4.3 - 10.0: High Severity RAPID-3 Weighed Score 04/06/2022 06/15/202210/12/2022 RAPID 3 Weighed Score 4.44 (High Severity (HS)) 5.17 (High Severity (HS)) 4.94 (High Severity (HS)) RAPID-3 10/12/2022 Weighed Score Percentage Change Compared to Last Score -4.45 % Review of Systems CONSTITUTION: Negative for: Fever and Recent weight change HEENT: Negative for: Nosebleeds, Mouth sores, Trouble swallowing and Dry mouth RESPIRATORY: Negative for: Cough, Shortness of breath and Pain with breathing GASTROINTESTINAL: Negative for: Melena, Diarrhea, Heartburn and Abdominal pain MUSCULOSKELETAL: Positive for: Arthralgias, Myalgias, Joint swelling and Morning Joint Stiffness Negative for: Muscle weakness NEUROLOGICAL: Negative for: Headaches, Numbness and Memory loss SKIN: Negative for: Rash, Skin changes, Hair loss and Nail changes EYES: Positive for: Eye dryness Negative for: Eye pain, Eye redness and visual disturbance CARDIOVASCULAR: Negative for: Chest pain and Leg swelling GENITOURINARY: Negative for: Dysuria and Hematuria HEMATOLOGIC/LYMPHATIC: Negative for: Swollen glands REVIEW OF SYSTEMS Complete ROS (HEENT, respiratory, cardiology, GI, , skin, psych, hematology, endocrine, neuro, musculoskeletal) negative except as noted in HPI. HISTORIES Past medical, surgical, family, and social history reviewed and notable changes since last visit include: Noted in HPI MEDICATIONS Current Outpatient Medications Medication Sig DULoxetine (CYMBALTA) 20 mg capsule Take 1 capsule by mouth twice daily. As directed rosuvastatin (CRESTOR) 5 mg tablet Take 1 tablet by mouth daily at bedtime. As directed gabapentin (NEURONTIN) 300 mg capsule Take 1 capsule by mouth daily at bedtime for 90 days. (Dr. García) traZODone (DESYREL) 50 mg tablet Take 1 tablet by mouth daily at bedtime. Magnesium Oxide 500 mg cap Takes OTC 1 per day CPAP Mask (per patient preference) optional chin strap (if indicated), filters, tubing / heated tubing, heated humidity and lifetime supplies. Dx. YAMILE G47.33 327.23 CPAP autoCPAP 5-15 cmH2O, mask, tubing, filters, heated humidity, lifetime supplies. Dx: YAMILE Methotrexate Sodium 2.5 mg tablet Take 5 mg by mouth one time a week. Take 7 tablets by mouth once a week. traMADol 50 mg TbDL Take by mouth as needed. meloxicam 15 mg tablet Take 1 tablet by mouth once daily. (Dr. García) BIOTIN 1 MG TAB one tablet daily omega-3 fatty acids/vitamin e(FISH OIL 1,000 MG CAP) one tablet daily Calcium Carbonate-Vitamin D2 (JOSE-600 WITH VITAMIN D) 600-200 mg-unit ORAL Tab Take 1 tablet by mouth once daily. ASPIRIN 81 MG ORAL TAB Take one (1) tablet daily . MULTIVITAMIN ORAL TAB Take one(1) tablet daily. ALLERGIES ALLERGIES Allergen Reactions Celebrex [Celecoxib] GI Upset bloating Laundry Detergent [* Rash Fabric softener also can be a problem Perfumes Rash certain types PHYSICAL EXAM VITAL SIGNS: BP 138/82 Pulse 76 Temp (Src) 97.9 (Temporal) Ht 5' 3.5 (1.61m) Wt 186 lb (84.4kg) BMI 32.43 kg/(m^2). GENERAL: Alert and oriented, appears a stated age. In no acute distress. EYES: Anicteric sclerae, no conjunctival injection HENT: Normocephalic, atraumatic NECK: No mass or asymmetry. No lymphadenopathy RESPIRATORY: Normal respiratory effort. Clear to auscultation bilaterally CARDIOVASCULAR: Regular in rate and rhythm with systolic murmur noted loudest at left upper sternal border ABDOMEN: Soft, nontender, nondistended NEUROLOGIC: No gross focal neurologic deficits. Cranial nerves II-XII grossly intact. SKIN: No rash, thickening, nodules, discoloration. MSK: Normal range of motion, no deformities, no swelling, and no tenderness in the hands, wrists, elbows, shoulders, spine, hips, knees, ankles, feet except as noted below: Heberden's and Maxine's nodes Tenderness of left knee Warmth and erythema of right knee with surgical incision in place, no significant fluid LABS Reviewed in [facility], notable for: No new relevant labs CBC Latest Ref Rng & Units 09/20/2018 11/20/2020 12/10/2021 04/09/2022 WBC 3.70 - 11.00 k/uL 5.88 5.01 5.42 6.41 HEMOGLOBIN 11.5 - 15.5 g/dL 12.9 13.3 13.4 12.5 HEMOGLOBIN, ZACHARY 12.0 - 16.0 g/dL - - - - HEMATOCRIT 36.0 - 46.0 % 40.6 41.1 42.0 38.4 PLATELETS 150 - 400 k/uL 290 249 258 243 ABS NEUT (ANC) 1.45 - 7.50 k/uL 3.82 2.65 3.36 4.27 ABS NEUT, ZACHARY 2.0 - 8.1 k/uL - - - - ABS LYMP, ZACHARY 1.0 - 5.5 k/uL - - - - ABS LYMPH 1.00 - 4.00 k/uL 1.31 1.53 1.20 1.08 CMP Latest Ref Rng & Units 09/20/2018 11/20/2020 12/10/2021 04/09/2022 SODIUM 136 - 144 mmol/L 138 142 141 143 SODIUM, ZACHARY 132 - 148 mmol/L - - - - SODIUM, ZACHARY 132 - 148 mmol/L - - - - POTASSIUM 3.7 - 5.1 mmol/L 4.2 4.0 4.4 3.9 POTASSIUM, ZACHARY 3.5 - 5.0 mmol/L - - - - CHLORIDE 97 - 105 mmol/L 100 102 102 103 CHLORIDE, ZACHARY 98 - 110 mmol/L - - - - CO2 22 - 30 mmol/L 28 28 CO2, ZACHARY 23.0 - 32.0 mmol/L - - - - GLUCOSE 74 - 99 mg/dL 88 83 97 89 GLUCOSE, ZACHARY 65 - 100 mg/dL - - - - BUN 7 - 21 mg/dL 15 16 23(H) 20 BUN, ZACHARY 10 - 25 mg/dL - - - - CREATININE 0.58 - 0.96 mg/dL 0.90 0.91 0.82 0.96 CREATININE, ZACHARY 0.7 - 1.4 mg/dL - - - - CALCIUM, ZACHARY 8.5 - 10.5 mg/dL - - - - CALCIUM, TOTAL 8.5 - 10.2 mg/dL 9.7 9.5 9.8 10.0 AST 13 - 35 U/L 30 28 28 27 AST, ZACHARY 7 - 40 U/L - - - - ALT 7 - 38 U/L 21 19 20 19 ALT, ZACHARY 0 - 45 U/L - - - - ALKALINE PHOSPHATASE 34 - 123 U/L 79 78 80 90 ESR, WSR Latest Ref Rng & Units 04/09/2022 WSR 0 - 20 mm/hr 10 CRP Latest Ref Rng & Units 04/09/2022 CRP <0.9 mg/dL 1.0(H) C3, C4 Latest Ref Rng & Units 04/09/2022 C3 86 - 166 mg/dL 154 C4 13 - 46 mg/dL 23 CK Latest Ref Rng & Units 04/17/2003 11/09/2012 CK 30 - 220 U/L 116 101 RF and CCP Latest Ref Rng & Units 04/09/2022 RHEUMATOID FACTOR <16 IU/mL <10 Hepatitis Screen Latest Ref Rng & Units 09/20/2017 12/07/2017 HEPCABEIA Negative Equivocal(A) Negative Antibodies Latest Ref Rng & Units 09/16/2017 04/09/2022 04/09/2022 NAE Negative - Positive(A) - NAE TITER - - 1:160 - NAE PATTERN - - Nuclear homogenous - DNA ANTIBODY W/CONFIRMATION <30 IU/mL - <12 - ANTI-SM <1.0 AI - <0.2 - SM ANTIBODY Negative - Negative - RIBOSOMAL CARDIO TECH AB <1.0 AI - <0.2 - RIBOSOMAL CARDIO TECH QUAL Negative - Negative - CHROMATIN AB <1.0 AI - <0.2 - CHROMATIN AB QUAL Negative - Negative - SSA ANTIBODY QUAL Negative - Negative Negative ANTI-SSA <1.0 AI - <0.2 <0.2 ANTI-SSB <1.0 AI - <0.2 <0.2 ANTI-SSB QUAL Negative - Negative - CARDIO TECH ANTIBODY QUAL Negative - Negative - SCL-70 AB QUAL Negative - Negative - SCL-70 ABS, EIA <1.0 AI - <0.2 - CENTROMERE AB <1.0 AI - <0.2 - CENTROMERE AB QUAL Negative - Negative - MAINOR-1 ANTIBODY, IGG <1.0 AI - <0.2 - MAINOR 1 ANTIBODY QUAL Negative - Negative - PT SEC 9.7 - 13.0 sec 9.7 - - PT INR 0.9 - 1.3 0.9 - - PTT 23.0 - 32.4 sec 27.6 - - Urinalysis Latest Ref Rng & Units 11/27/2004 01/02/2005 04/09/2022 PROTEIN, URINE Trace, Negative - - Trace RBC, URINE 0-3 /HPF - - 0-3 /HPF RBC, URINE, ZACHARY /hpf OCC Negative - PROTEIN/CREATININE RATIO <0.15 mg/mg - - 0.09 IMAGING Reviewed in Epic, notable for: No new relevant imaging ASSESSMENT Josy Jones is a 72 year old White female with a history of hypercholesterolemia, migraine, psoriasis, mood disorder, scoliosis, YAMILE on CPAP, restless legs, fibromyalgia, osteoarthritis, chronic pain syndrome who presents rheumatology clinic for follow-up of historic diagnoses of psoriasis, psoriatic arthritis, and osteopenia. She is doing quite well off of the methotrexate from the psoriasis and psoriatic arthritis standpoint. She will let me know if she gets any flares and I will follow-up with her again in 6 months to assess her disease status. Her biggest ongoing issue is her chronic pain syndrome, currently under the care of her PCP. Again recommend not adding on multiple [employer] depressants at nighttime including gabapentin and trazodone which she is on. She plans to stop the trazodone when her pills run out and switch to Tylenol which is reasonable. Due to her ongoing fibromyalgia pain, will consult fibromyalgia clinic. Will also send to sleep medicine as she has difficulty sleeping and possible restless legs. IMPRESSIONS Diagnoses: (M79.7) Fibromyalgia (primary encounter diagnosis) (L40.50) Psoriatic arthritis (HCC) (G47.09) Other insomnia PLAN 1. Continue off of methotrexate for now, she will let me know if she gets there is 2. Agree with discontinuation of her tramadol. Okay to keep gabapentin for now, defer to PCP 3. Consult to fibromyalgia clinic 4. Consult to sleep medicine for possible insomnia or other sleep-related disorders 5. Okay to continue with Cymbalta per PCP 6. Continue [id number] vitamin D and calcium for osteopenia, repeat DEXA 04/2024 7. Follow-up 6 months rheumatology Orders this visit: Office Visit on 10/15/22 CONSULT TO SLEEP MEDICINE - ADULT CONSULT TO [facility] Return in about 6 months (around 04/17/2023). I spent a total of 36 minutes on the date of the service which included preparing to see the patient, [id number] patient care, completing clinical documentation, obtaining and/or reviewing separately obtained history, performing a medically appropriate examination, counseling and educating the patient/family/caregiver, and ordering medications, tests, or procedures. This note was partially generated with the assistance of [employer] voice recognition software. An attempt was made to correct any dictation errors however there may be some incorrect words, spellings, and punctuation. ___ Hattie Brownlee MD Rheumatology Date: October 15, 2022 Time: 11:30 AM documented in this encounter [facility] 10-15-2022 Instructions Hattie Brownlee MD - 10/15/2022 11:22 AM EDT OK to switch tramadol with another 1000 mg of tylenol for max dose 1000 mg three times a day OK to continue gabapentin for now Consult to fibromyalgia clinic Consult to sleep medicine Ok to stay off of methotrexate, let me know if you get red hot swollen joints (not the knee) Follow up 6 months documented in this encounter [facility] 08-10-2022 Miscellaneous Notes Completed forms faxed as requested. Reviewed, forms completed, please send with office note to [facility]. Thanks! Labs and EKG on Robyn Manuel desk for review. Records release faxed to Tiffany requesting labs and EKG. Have we seen a fax for her labs and EKG from [facility]? Madelaine- Zachary Bowen, asking if provider filled out the pre op clearance form, they faxed over on 07-31? Advised clearance was pending lab/ekg results. Madelaine reports the labs were done at [facility] and she will fax those to provider along with another clearance form. She will call patient to see if an ekg was done. documented in this encounter [facility] 08-05-2022 Note HNO ID: [id number] Author: Robyn Manuel APRN.JYOTHI Service: ? Author Type: Nurse Practitioner Type: Progress Notes Filed: 08/10/2022 1:03 PM Note Text: SUBJECTIVE Josy Jones is a 72 year old female here today for a pre-op visit. Chief Complaint Patient presents with: Pre-Op Exam: needs lab and EKG have right knee arthroplasty with Dr. Wellington HPI Josy Jones is an 72 year old female presents to the office for pre-op examination. Is scheduled to have robotic assisted total knee arthoplasty on the right done on 08/17/[address] Wellington with [facility]. History of having anesthesia: Yes. Any reaction from anesthesia in the past: No. Personal or family history of heart disease: No. Chronic diseases controlled: Yes. Currently taking a blood thinner: Yes: aspirin, knows when to stop this. Patient denies chest pain, SOB, dizziness, palpitations, one sided weakness, dropping of face or mouth, fever, or recent sickness. No history of CVA or [place]. Labs, EKG to be obtained. Prior ECHO reviewed and stable. Medical history significant for sleep apnea with autocpap and uses nightly, high cholesterol, fibromyalgia. All controlled. Her medications were reviewed today and her list is now up to date. Medications Current Outpatient Medications Medication Sig DULoxetine (CYMBALTA) 20 mg capsule Take 1 capsule by mouth twice daily. As directed rosuvastatin (CRESTOR) 5 mg tablet Take 1 tablet by mouth daily at bedtime. As directed gabapentin (NEURONTIN) 300 mg capsule Take 1 capsule by mouth daily at bedtime for 90 days. (Dr. García) traZODone (DESYREL) 50 mg tablet Take 1 tablet by mouth daily at bedtime. Magnesium Oxide 500 mg cap Takes OTC 1 per day traMADol 50 mg TbDL Take by mouth as needed. meloxicam 15 mg tablet Take 1 tablet by mouth once daily. (Dr. García) BIOTIN 1 MG TAB one tablet daily omega-3 fatty acids/vitamin e(FISH OIL 1,000 MG CAP) one tablet daily Calcium Carbonate-Vitamin D2 (JOSE-600 WITH VITAMIN D) 600-200 mg-unit ORAL Tab Take 1 tablet by mouth once daily. ASPIRIN 81 MG ORAL TAB Take one (1) tablet daily . MULTIVITAMIN ORAL TAB Take one(1) tablet daily. CPAP Mask (per patient preference) optional chin strap (if indicated), filters, tubing / heated tubing, heated humidity and lifetime supplies. Dx. YAMILE G47.33 327.23 CPAP autoCPAP 5-15 cmH2O, mask, tubing, filters, heated humidity, lifetime supplies. Dx: YAMILE Methotrexate Sodium 2.5 mg tablet Take 5 mg by mouth one time a week. Take 7 tablets by mouth once a week. No current facility-administered medications for this visit. 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 Umanzor. Adjustment Disorder With Depressed Mood - 03/21/2007 Comment: [facility] [facility] Transient Disorder of Initiating Or Maintaining Sleep - 07/05/2006 Migraine Without Aura - 02/09/2005 Hypercholesterolemia - 11/03/2004 Fibromyalgia - 11/03/2004 Social History Tobacco Use Smoking status: Never Smokeless tobacco: Never Vaping Use Vaping Use: Never used Substance Use Topics Alcohol use: No Drug use: No Review of Systems Constitutional: Negative. Eyes: Negative for visual disturbance. Respiratory: Negative for chest tightness and shortness of breath. Cardiovascular: Negative for chest pain, palpitations and leg swelling. Neurological: Negative for seizures, syncope, facial asymmetry and speech difficulty. OBJECTIVE BP 110/62 Pulse 84 Ht 5' 3.5 (1.61m) Wt 186 lb (84.4kg) SpO2 95% BMI 32.43 kg/(m2). Physical Exam Vitals and nursing note reviewed. Constitutional: General: She is awake. She is not in acute distress. Appearance: She is well-developed and well-groomed. She is not ill-appearing, toxic-appearing or diaphoretic. HENT: Head: Normocephalic. Eyes: General: Vision grossly intact. Conjunctiva/sclera: Conjunctivae normal. Pupils: Pupils are equal, round, and reactive to light. Neck: Vascular: No carotid bruit or JVD. Cardiovascular: Rate and Rhythm: Normal rate and regular rhythm. Heart sounds: Normal heart sounds. No murmur heard. Pulmonary: Effort: Pulmonary effort is normal. No accessory muscle usage, prolonged expiration or respiratory distress. Breath sounds: Normal breath sounds. Musculoskeletal: Cervical back: Norm (more content not included)... [facility] 08-05-2022 History of Present illness Narrative SUBJECTIVE Josy Jones is a 72 year old female here today for a pre-op visit. Chief Complaint Patient presents with: Pre-Op Exam: needs lab and EKG have right knee arthroplasty with Dr. Wellington HPI Josy Jones is an 72 year old female presents to the office for pre-op examination. Is scheduled to have robotic assisted total knee arthoplasty on the right done on 08/17/[address] Wellington with [facility]. History of having anesthesia: Yes. Any reaction from anesthesia in the past: No. Personal or family history of heart disease: No. Chronic diseases controlled: Yes. Currently taking a blood thinner: Yes: aspirin, knows when to stop this. Patient denies chest pain, SOB, dizziness, palpitations, one sided weakness, dropping of face or mouth, fever, or recent sickness. No history of CVA or [place]. Labs, EKG to be obtained. Prior ECHO reviewed and stable. Medical history significant for sleep apnea with autocpap and uses nightly, high cholesterol, fibromyalgia. All controlled. Her medications were reviewed today and her list is now up to date. Medications Current Outpatient Medications Medication Sig DULoxetine (CYMBALTA) 20 mg capsule Take 1 capsule by mouth twice daily. As directed rosuvastatin (CRESTOR) 5 mg tablet Take 1 tablet by mouth daily at bedtime. As directed gabapentin (NEURONTIN) 300 mg capsule Take 1 capsule by mouth daily at bedtime for 90 days. (Dr. García) traZODone (DESYREL) 50 mg tablet Take 1 tablet by mouth daily at bedtime. Magnesium Oxide 500 mg cap Takes OTC 1 per day traMADol 50 mg TbDL Take by mouth as needed. meloxicam 15 mg tablet Take 1 tablet by mouth once daily. (Dr. García) BIOTIN 1 MG TAB one tablet daily omega-3 fatty acids/vitamin e(FISH OIL 1,000 MG CAP) one tablet daily Calcium Carbonate-Vitamin D2 (JOSE-600 WITH VITAMIN D) 600-200 mg-unit ORAL Tab Take 1 tablet by mouth once daily. ASPIRIN 81 MG ORAL TAB Take one (1) tablet daily . MULTIVITAMIN ORAL TAB Take one(1) tablet daily. CPAP Mask (per patient preference) optional chin strap (if indicated), filters, tubing / heated tubing, heated humidity and lifetime supplies. Dx. YAMILE G47.33 327.23 CPAP autoCPAP 5-15 cmH2O, mask, tubing, filters, heated humidity, lifetime supplies. Dx: YAMILE Methotrexate Sodium 2.5 mg tablet Take 5 mg by mouth one time a week. Take 7 tablets by mouth once a week. No current facility-administered medications for this visit. 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 Umanzor. Adjustment Disorder With Depressed Mood - 03/21/2007 Comment: [facility]. Transient Disorder of Initiating Or Maintaining Sleep - 07/05/2006 Migraine Without Aura - 02/09/2005 Hypercholesterolemia - 11/03/2004 Fibromyalgia - 11/03/2004 Social History Tobacco Use Smoking status: Never Smokeless tobacco: Never Vaping Use Vaping Use: Never used Substance Use Topics Alcohol use: No Drug use: No Review of Systems Constitutional: Negative. Eyes: Negative for visual disturbance. Respiratory: Negative for chest tightness and shortness of breath. Cardiovascular: Negative for chest pain, palpitations and leg swelling. Neurological: Negative for seizures, syncope, facial asymmetry and speech difficulty. OBJECTIVE BP 110/62 Pulse 84 Ht 5' 3.5 (1.61m) Wt 186 lb (84.4kg) SpO2 95% BMI 32.43 kg/(m^2). Physical Exam Vitals and nursing note reviewed. Constitutional: General: She is awake. She is not in acute distress. Appearance: She is well-developed and well-groomed. She is not ill-appearing, toxic-appearing or diaphoretic. HENT: Head: Normocephalic. Eyes: General: Vision grossly intact. Conjunctiva/sclera: Conjunctivae normal. Pupils: Pupils are equal, round, and reactive to light. Neck: Vascular: No carotid bruit or JVD. Cardiovascular: Rate and Rhythm: Normal rate and regular rhythm. Heart sounds: Normal heart sounds. No murmur heard. Pulmonary: Effort: Pulmonary effort is normal. No accessory muscle usage, prolonged expiration or respiratory distress. Breath sounds: Normal breath sounds. Musculoskeletal: Cervical back: Normal range of motion and neck supple. Skin: General: Skin is warm and dry. Capillary Refill: Capillary refill takes less than 2 seconds. Neurological: General: No focal deficit present. Mental Status: She is alert and oriented to person, place, and time. Mental status is at baseline. Cranial Nerves: No cranial nerve deficit. Sensory: No sensory deficit. Psychiatric: Attention and Perception: Attention and perception normal. Mood and Affect: Mood normal. Speech: Speech normal. Behavior: Behavior normal. Behavior is cooperative. Thought Content: Thought content normal. Judgment: Judgment normal. ASSESSMENT/PLAN: 1. Chronic pain of right knee - ICD9: 719.46, 338.29, ICD10: M25.561, G89.29 (primary diagnosis) Scheduled to have robotic assisted total knee arthoplasty on the right done on 08/17/[address] Wellington with [facility]. 2. Osteoarthritis of right knee, unspecified osteoarthritis type - ICD9: 715.96, ICD10: M17.11 See #1 3. Pre-op exam - ICD9: V72.84, ICD10: Z01.818 Based on physical exam done at today's visit, negative review of systems, negative history for heart disease, CVD, the patient is cleared for surgery from a primary care standpoint pending that once completed her labs and EKG are stable. 4. Obesity, Class I, BMI 30-34.9 - ICD9: 278.00, ICD10: E66.9 Stable 5. Fibromyalgia - ICD9: 729.1, ICD10: M79.7 Stable 6. Hypercholesterolemia - ICD9: 272.0, ICD10: E78.00 Stable 7. YAMILE (obstructive sleep apnea) - ICD9: 327.23, ICD10: G47.33 Stable Portions of this note have been entered by ancillary staff. I have reviewed and when necessary edited, so that they are an adequate record of my encounter with this patient Please note that parts of this document were created using voice recognition software and therefore may contain grammatical errors. Patient verbalizes understanding of instructions from today's visit and in agreement with treatment plan. Questions answered. Agrees to call the office if questions, concerns of issues with acute symptoms not improving or if they worsen. See diagnoses and orders for additional plan(s). Allergies and medications were reviewed, list was updated, and refills given if needed. Past medical, surgical, social, and family history reviewed and updated as appropriate. Encouraged proper diet & exercise as well as compliance with taking medications. Age-appropriate health preventative measures were discussed. Return if symptoms worsen or fail to improve, for Keep next scheduled appointment.. Robyn Manuel APRN-CHEMICAL PROCESS PROJECT ENGINEER documented in this encounter [facility] 06-26-2022 Note HNO ID: [id number] Author: Elvie Glez MD Service: ? Author Type: Physician Type: Progress Notes Filed: 07/27/2022 12:34 AM Note Text: This note was created using Histogenriter. Subjective Josy Jones is a 72 year old female. Patient presents with: F/U 3 Month SUBJECTIVE: Josy Jones is a 72 year old year old lady here today for 3 month follow up and BP recheck appointment for review of medical conditions. Pleased with care from medical numerical control operator. Treating psoriatic arthritis, Reviewed test done for hands. Tapering off the MTX and then will done in a couple weekends. Substernal chest pain episode noted. No other ,sx concerning for angina. Resolved after a few hours. Had appointment that day with medical numerical control operator. BP at home 110s over 50s. Noted that weight crept up since started on Cymbalta. Would like to try tapering off or at least down. No depression symptoms. Plans to try stopping tizanidine since just taking at bedtime and was most recently added med. Noted dry needling has helped with pain in upper shoulders. Massotherapist noted has helped. Also gets pain in legs. Knee issues noted. Knee injections have helped. Consider TKRs. Has been to [facility]. Noted some heartburn issues. Depression Screening 11/28/2020 01/01/2022 04/06/2022 06/26/2022 PHQ-2 Score 2 0 2 1 PHQ-9 Score - - - - MERI-2 Total Score - - - - MERI-7 Total Score - - - - Depression screening tool completed and reviewed. Based on score and interview, patient is not at risk for depression. Screening tool discussed with patient, and I recommended no further intervention at this time. PAST MEDICAL HISTORY Diagnosis Date Adjustment disorder with depressed mood 03/21/2007 [facility]. Dysthymic disorder 02/09/2005 Fibromyalgia 03/2012 Hyperlipidemia Migraine without aura, without mention of intractable migraine without mention of status migrainosus 02/09/2005 Myalgia and myositis, unspecified 11/03/2004 low back pain, cervical spondylosis, fibromyalgia Obstructive sleep apnea [facility] Other and unspecified hyperlipidemia 11/03/2004 Other psoriasis 03/13/2008 Dr. Umanzor. Postmenopausal atrophic vaginitis Psoriatic arthritis (HCC) Shingles Snoring Symptomatic menopausal or female climacteric states Unspecified hemorrhoids without mention of complication /internal Current Outpatient Medications Medication Sig gabapentin (NEURONTIN) 300 mg capsule Take 1 capsule by mouth daily at bedtime for 90 days. (Dr. García) DULoxetine (CYMBALTA) 60 mg capsule Take 1 capsule by mouth once daily. (Cr. García) traZODone (DESYREL) 50 mg tablet Take 1 tablet by mouth daily at bedtime. tiZANidine (ZANAFLEX) 4 mg tablet Take 1 tablet by mouth every 8 hours as needed (muscle spasms). (Dr. García) Magnesium Oxide 500 mg cap Takes OTC 1 per day CPAP Mask (per patient preference) optional chin strap (if indicated), filters, tubing / heated tubing, heated humidity and lifetime supplies. Dx. YAMILE G47.33 327.23 ferrous sulfate 325 mg (65 mg iron) tablet Take 1 tablet by mouth daily with breakfast. With Vitamin C 500 mg daily CPAP autoCPAP 5-15 cmH2O, mask, tubing, filters, heated humidity, lifetime supplies. Dx: YAMILE loratadine (CLARITIN) 10 mg tablet Take 1 tablet by mouth once daily. (Patient taking differently: Take 10 mg by mouth once daily. prn) Methotrexate Sodium 2.5 mg tablet Take 5 mg by mouth one time a week. Take 7 tablets by mouth once a week. LEUCOVORIN CALCIUM ORAL Take by mouth as directed. traMADol 50 mg TbDL Take by mouth as needed. folic acid 1 mg tablet Take 2 tablets by mouth once daily. (Dr. García) meloxicam 15 mg tablet Take 1 tablet by mouth once daily. (Dr. García) BIOTIN 1 MG TAB one tablet daily omega-3 fatty acids/vitamin e(FISH OIL 1,000 MG CAP) one tablet daily Calcium Carbonate-Vitamin D2 (JOSE-600 WITH VITAMIN D) 600-200 mg-unit ORAL Tab Take 1 tablet by mouth once daily. ASPIRIN 81 MG ORAL TAB Take one (1) tablet daily . MULTIVITAMIN ORAL TAB Take one(1) tablet daily. No current facility-administered medications for this visit. Review of Systems Objective There were no vitals taken for this visit. Last 5 Encounter Wt Readings: Date: Wt: 06/19/2022 84.4 kg (186 lb) 04/09/2022 82.6 kg (182 lb) 01/01/2022 82.1 kg (181 lb) 03/17/2021 83.9 kg (185 lb) 12/03/2020 82.6 kg (182 lb) No waist measurement recorded Estimated body mass index is 31.93 kg/m? as calculated from the following: Height as of 06/19/22: 162.6 cm (5' 4 ). Weight as of 06/19/22: 84.4 kg (186 lb). Last 5 Encounter BP Readings: Date: BP: 06/19/2022 141/85 04/09/2022 117/73 01/01/2022 132/82 03/17/2021 114/60 12/03/2020 120/68 Physical Exam Component Latest Ref Rng AND Units 11/09/2012 05/24/2013 12/22/2013 04/03/2015 11/13/2016 09/20/2017 09/20/2018 12/10/2021 06/17/2022 Triglyceride <150 mg/dL 97 138 107 85 125 115 110 106 117 Cholest (more content not included)... [facility] 06-19-2022 Note HNO ID: [id number] Author: Hattie Brownlee MD Service: ? Author Type: Physician Type: Progress Notes Filed: 06/19/2022 3:49 PM Note Text: Rheumatology FOLLOW UP VISIT Date of Service: 06/19/2022 Patient: Josy Jones Medical Record: [id number] Primary Care Physician: Elvie Glez MD Last Rheumatology visit: 04/09/2022 (with Hattie Brownlee) Chief Complaint: Established Patient INTERVAL HISTORY She is doing well since her last visit. She went down to 15 mg methotrexate x1 month, then 10 mg x 1 month, and just started 5 mg. Her biggest issue are her knees, she does get regular steroid injections every 3 months by orthopedics and is a candidate for replacement but has not gotten them yet. She is next due for injections 07/21. She has not had any flares of red hot swollen joints. She has some tenderness on her left hip that bothers her. She continues to take tramadol but decreased it to twice a day instead of 3 times a day, Tylenol 2 times a day, Cymbalta, tizanidine at night, trazodone at night, gabapentin at night, and meloxicam 1-2 times a week as needed. She has a number of other concerns today including a bad episode of chest pain possibly heartburn last night. It was the worst episode she had ever had. She had no associated symptoms such as nausea, vomiting, shortness of breath, sweating, lightheadedness or dizziness. It did not respond to Tums. It slowly improved overnight. She also worries about her blood pressure and cholesterol still being a little bit high. She has difficulty losing weight. RHEUMATOLOGIC HISTORY Josy reports a current pain level of 7 . The pain is Intermittent . She is currently taking meloxicam. Josy is RF negative - 9 (04/09/2022). Her most recent NAE was positive (04/09/2022). HISTORY OF PRESENT ILLNESS 1. Psoriasis 2. Psoriatic arthritis 3. Osteoarthritis 4. Fibromyalgia 5. Chronic pain syndrome Current treatments: Methotrexate, currently down titrating Tramadol 50 mg 2 times a day Tizanidine at night Gabapentin 300 mg at night Trazodone at night Tylenol Meloxicam as needed Duloxetine 60 mg Work-up: 04/09/2022: NAE 1: 160 with homogenous Negative BIMAL Vitamin D 67.8 Normal C3, C4 Normal free light chains and ratio Normal SPEP Normal UA Normal UPEP Normal UPC 04/09/2022 bilateral hand x-rays: [facility] OA 04/20/2022 DEXA: Lowest T score -1.1, osteopenia, FRAX 9.2% major, 1.2% hip 05/19/2022 synovial screen ultrasound hands and wrists: Normal bilateral Josy Jones is a 71 year old White female with a history of hypercholesterolemia, migraine, psoriasis, mood disorder, scoliosis, YAMILE on CPAP, restless legs who presents rheumatology clinic for second opinion. Chart review reveals she was evaluated by VERONICA Vincent 01/01/2022. She apparently follows with her local medical numerical control operator Dr. Peck and requested second opinion. Review of outside records demonstrates that she was last seen by her medical numerical control operator 03/17/2022 for psoriasis, psoriatic arthritis, osteoarthritis, fibromyalgia. Her current regimen includes methotrexate 20 mg p.o. once a week, folic acid 1 mg daily, leucovorin 15 mg once a week, Mobic daily as needed, Cymbalta 60 mg, tizanidine 2 mg 3 times a day, and Ultram 50 mg 3 times a day as needed. Today she presents to clinic alone. She states that her psoriasis began more than a decade ago with a red patch on her back. She did see dermatology who is prescribed her topicals. She started developing pain in her knees and back at which point she was diagnosed with psoriatic arthritis by her local medical numerical control operator. She was put on methotrexate and was uptitrated to 20 mg once a week. Her only side effect is changing her hair from curly to straight. She is unclear why she is on both folic acid and leucovorin. She thinks methotrexate has helped some but of all of her medications the tramadol helps the most. She has not had recurrence of psoriasis since being on methotrexate. Her current issue is ongoing bilateral knee pain left worse than right. She does follow with orthopedics and has had injections including steroids and gel injections. The steroid injection significantly helped. Her last one was done 01/07/2022 in both knees. She does get some morning stiffness in her back and knees. She describes chronic neck and low back pain with stiffness. She gets monthly massages which help. She describes it as muscle tightness worse in the bilateral trapezius muscles. Tramadol significantly helps she is taking 50 mg 3 times a day. She is uncertain if the tizanidine, Cymbalta, or meloxicam helps. She is unable to do all of her chores at home due to her neck and upper back pain. She has done physical therapy, dry needling, heat, massage all of which help. Rheumatologic review of systems notable for dry eyes using drops daily, dry mouth which she thinks is due to the tizanidine, 1 sore in her nose from (more content not included)... [facility] 04-24-2022 Miscellaneous Notes PT scheduled for MSK US on 05/19/22 at 3:45 pm at [facility]. Pt called back at 1:45, please give this pt a call back to make sure their scheduled for an appt. Called patient on 04/24/22 at 12:56 pm to schedule their MSK US exam. No answer, left VM, 1st attempt. Visit Type: MSK SYN Visit Length: 45, 50 OR 60 MINUTES Order Name/Protocol: US HAND/WRIST SYNOVIAL SCREEN RT+LT Preferred Provider: N/A Comment: N/A Location: ANY FACILITY Slot held: N/A documented in this encounter [facility] 04-20-2022 Note HNO ID: [id number] Author: RT Moiz(R) Service: ? Author Type: Technologist Type: Progress Notes Filed: 04/20/2022 3:47 PM Note Text: Radiology Service Progress Note PATIENT NAME: Josy Jones DATE OF SERVICE: April 20, 2022 TIME: 3:39 PM PATIENT IDENTITY VERIFICATION COMPLETED USING TWO (2) IDENTIFIERS: Name and Date of confirmed by patient verbally. FALL SCREENING: Has the patient had 2 falls in the last year or 1 fall with injury or currently using an Ambulatory Assistive Device (Walker, Cane, Wheelchair, Crutches, etc.)? No PATIENT GENDER DATA: Female. status: : No status: NO. PATIENT RELEVANT IMPLANT DATA REVIEWED: Not Applicable RADIOLOGY DEPARTMENT: Bone Density PERIPHERAL IV DATA: Not applicable SIGNED BY: RT Moiz(R) April 20, 2022 3:39 PM [facility] 04-20-2022 History of Present illness Narrative Radiology Service Progress Note PATIENT NAME: Josy Jones DATE OF SERVICE: April 20, 2022 TIME: 3:39 PM PATIENT IDENTITY VERIFICATION COMPLETED USING TWO (2) IDENTIFIERS: Name and Date of confirmed by patient verbally. FALL SCREENING: Has the patient had 2 falls in the last year or 1 fall with injury or currently using an Ambulatory Assistive Device (Walker, Cane, Wheelchair, Crutches, etc.)? No PATIENT GENDER DATA: Female. status: : No status: NO. PATIENT RELEVANT IMPLANT DATA REVIEWED: Not Applicable RADIOLOGY DEPARTMENT: Bone Density PERIPHERAL IV DATA: Not applicable SIGNED BY: RT Moiz(R) April 20, 2022 3:39 PM documented in this encounter [facility] 04-09-2022 Note HNO ID: [id number] Author: Hattie Brownlee MD Service: ? Author Type: Physician Type: Progress Notes Filed: 04/09/2022 8:16 PM Note Text: Rheumatology CONSULTATION Date of Service: 04/09/2022 Patient: Josy Jones Medical Record: [id number] Primary Care Physician: Elvie Glez MD Last Rheumatology visit: None at [facility] Referring Provider: Jacklyn Vincent [facility] [address] Chief Complaint: Patient presents with: New Patient Psoriatic Arthritis Osteoarthritis Osteopenia Josy Jones is here today at request of Dr. Vincent specifically for consultation of my opinion in regards to the chief complaint listed above. Correspondence will be shared today via the [facility] electronic health record or through regular mail, where applicable. HISTORY OF PRESENT ILLNESS Josy Jones is a 71 year old White female with a history of hypercholesterolemia, migraine, psoriasis, mood disorder, scoliosis, YAMILE on CPAP, restless legs who presents rheumatology clinic for second opinion. Chart review reveals she was evaluated by VERONICA Vincent 01/01/2022. She apparently follows with her local medical numerical control operator Dr. Peck and requested second opinion. Review of outside records demonstrates that she was last seen by her medical numerical control operator 03/17/2022 for psoriasis, psoriatic arthritis, osteoarthritis, fibromyalgia. Her current regimen includes methotrexate 20 mg p.o. once a week, folic acid 1 mg daily, leucovorin 15 mg once a week, Mobic daily as needed, Cymbalta 60 mg, tizanidine 2 mg 3 times a day, and Ultram 50 mg 3 times a day as needed. Today she presents to clinic alone. She states that her psoriasis began more than a decade ago with a red patch on her back. She did see dermatology who is prescribed her topicals. She started developing pain in her knees and back at which point she was diagnosed with psoriatic arthritis by her local medical numerical control operator. She was put on methotrexate and was uptitrated to 20 mg once a week. Her only side effect is changing her hair from curly to straight. She is unclear why she is on both folic acid and leucovorin. She thinks methotrexate has helped some but of all of her medications the tramadol helps the most. She has not had recurrence of psoriasis since being on methotrexate. Her current issue is ongoing bilateral knee pain left worse than right. She does follow with orthopedics and has had injections including steroids and gel injections. The steroid injection significantly helped. Her last one was done 01/07/2022 in both knees. She does get some morning stiffness in her back and knees. She describes chronic neck and low back pain with stiffness. She gets monthly massages which help. She describes it as muscle tightness worse in the bilateral trapezius muscles. Tramadol significantly helps she is taking 50 mg 3 times a day. She is uncertain if the tizanidine, Cymbalta, or meloxicam helps. She is unable to do all of her chores at home due to her neck and upper back pain. She has done physical therapy, dry needling, heat, massage all of which help. Rheumatologic review of systems notable for dry eyes using drops daily, dry mouth which she thinks is due to the tizanidine, 1 sore in her nose from her CPAP, dyspnea on exertion, intermittent loose stools, and rare episodes of fingers turning white in the cold. She denies fevers, night sweats, unintentional weight loss, history of uveitis, sores in her mouth, malar rash, photosensitivity, cough, congestion, chest pain, nausea, vomiting, abdominal pain, constipation, blood in her urine or stool, red hot swollen joints. Pain Evaluation Pain Evaluation 06/04/2014 06/13/2017 09/16/2017 11/24/2017 04/09/2022 Pain Score 0 6 4 5 7 Location - Throat Elbow-Left Neck - Location Comment - - - denise shoulders - Description - Sore - Radiating;Aching Aching Duration (#) - 5 2 3 - Duration (Timeframe) - Days Days Years Years Frequency - Continuous Intermittent Continuous Continuous Intervention - Medication Medication Reposition;Medication Declined PATIENT-ENTERED DATA PROMIS Assessments PROMIS Assessments 11/28/2020 12/30/2021 04/06/2022 Physical Health Percentile 22 % 22 % 22 % Mental Health Percentile 34 % 53 % 26 % Pain Score 3 3 3 Pain Interference Percentile - - 12 % Fatigue Percentile - - 18 % Physical Function Percentile - - 7 % RAPID 3 Martin Activities of Daily Living 04/06/2022 6:11 PM Dress self? Without ANY difficulty Get in and out of bed? With SOME difficulty Walk outdoors? Without ANY difficulty Wash and dry body? With SOME difficulty Get in and out of car? With SOME difficulty RAPID 3 Disease Activity Weighed Score Levels: 0 - 1: Near Remission 1.3 - 2.0: Low Severity 2.3 - 4.0: Moderate Severity 4.3 - 10.0: High Severity RAPID-3 Weighed Score 04/06/2022 RAPID 3 Weighed Score 4.44 (High Severity (HS)) Review of Systems CONSTITUTION: Negative for: Feve (more content not included)... [facility] 04-09-2022 History of Present illness Narrative Images from the original note were not included. Rheumatology CONSULTATION Date of Service: 04/09/2022 Patient: Josy Jones Medical Record: [id number] Primary Care Physician: Elvie Glez MD Last Rheumatology visit: None at [facility] Referring Provider: Jacklyn Vincent [address] [place] [id number] Chief Complaint: Patient presents with: New Patient Psoriatic Arthritis Osteoarthritis Osteopenia Josy Jones is here today at request of Dr. Vincent specifically for consultation of my opinion in regards to the chief complaint listed above. Correspondence will be shared today via the [facility] electronic health record or through regular mail, where applicable. HISTORY OF PRESENT ILLNESS Josy Jones is a 71 year old White female with a history of hypercholesterolemia, migraine, psoriasis, mood disorder, scoliosis, YAMILE on CPAP, restless legs who presents rheumatology clinic for second opinion. Chart review reveals she was evaluated by VERONICA Vincent 01/01/2022. She apparently follows with her local medical numerical control operator Dr. Peck and requested second opinion. Review of outside records demonstrates that she was last seen by her medical numerical control operator 03/17/2022 for psoriasis, psoriatic arthritis, osteoarthritis, fibromyalgia. Her current regimen includes methotrexate 20 mg p.o. once a week, folic acid 1 mg daily, leucovorin 15 mg once a week, Mobic daily as needed, Cymbalta 60 mg, tizanidine 2 mg 3 times a day, and Ultram 50 mg 3 times a day as needed. Today she presents to clinic alone. She states that her psoriasis began more than a decade ago with a red patch on her back. She did see dermatology who is prescribed her topicals. She started developing pain in her knees and back at which point she was diagnosed with psoriatic arthritis by her local medical numerical control operator. She was put on methotrexate and was uptitrated to 20 mg once a week. Her only side effect is changing her hair from curly to straight. She is unclear why she is on both folic acid and leucovorin. She thinks methotrexate has helped some but of all of her medications the tramadol helps the most. She has not had recurrence of psoriasis since being on methotrexate. Her current issue is ongoing bilateral knee pain left worse than right. She does follow with orthopedics and has had injections including steroids and gel injections. The steroid injection significantly helped. Her last one was done 01/07/2022 in both knees. She does get some morning stiffness in her back and knees. She describes chronic neck and low back pain with stiffness. She gets monthly massages which help. She describes it as muscle tightness worse in the bilateral trapezius muscles. Tramadol significantly helps she is taking 50 mg 3 times a day. She is uncertain if the tizanidine, Cymbalta, or meloxicam helps. She is unable to do all of her chores at home due to her neck and upper back pain. She has done physical therapy, dry needling, heat, massage all of which help. Rheumatologic review of systems notable for dry eyes using drops daily, dry mouth which she thinks is due to the tizanidine, 1 sore in her nose from her CPAP, dyspnea on exertion, intermittent loose stools, and rare episodes of fingers turning white in the cold. She denies fevers, night sweats, unintentional weight loss, history of uveitis, sores in her mouth, malar rash, photosensitivity, cough, congestion, chest pain, nausea, vomiting, abdominal pain, constipation, blood in her urine or stool, red hot swollen joints. Pain Evaluation Pain Evaluation 06/04/2014 06/13/2017 09/16/2017 11/24/2017 04/09/2022 Pain Score 0 6 4 5 7 Location - Throat Elbow-Left Neck - Location Comment - - - denise shoulders - Description - Sore - Radiating;Aching Aching Duration (#) - 5 2 3 - Duration (Timeframe) - Days Days Years Years Frequency - Continuous Intermittent Continuous Continuous Intervention - Medication Medication Reposition;Medication Declined PATIENT-ENTERED DATA PROMIS Assessments PROMIS Assessments 11/28/2020 12/30/2021 04/06/2022 Physical Health Percentile 22 % 22 % 22 % Mental Health Percentile 34 % 53 % 26 % Pain Score 3 3 3 Pain Interference Percentile - - 12 % Fatigue Percentile - - 18 % Physical Function Percentile - - 7 % RAPID 3 Martin Activities of Daily Living 04/06/2022 6:11 PM Dress self? Without ANY difficulty Get in and out of bed? With SOME difficulty Walk outdoors? Without ANY difficulty Wash and dry body? With SOME difficulty Get in and out of car? With SOME difficulty RAPID 3 Disease Activity Weighed Score Levels: 0 - 1: Near Remission 1.3 - 2.0: Low Severity 2.3 - 4.0: Moderate Severity 4.3 - 10.0: High Severity RAPID-3 Weighed Score 04/06/2022 RAPID 3 Weighed Score 4.44 (High Severity (HS)) Review of Systems CONSTITUTION: Negative for: Fever and Recent weight change HEENT: Positive for: Dry mouth Negative for: Nosebleeds, Mouth sores and Trouble swallowing RESPIRATORY: Negative for: Cough, Shortness of breath and Pain with breathing GASTROINTESTINAL: Positive for: Heartburn Negative for: Melena, Diarrhea and Abdominal pain MUSCULOSKELETAL: Positive for: Arthralgias, Myalgias, Muscle weakness, Joint swelling and Morning Joint Stiffness NEUROLOGICAL: Positive for: Headaches Negative for: Numbness and Memory loss SKIN: Positive for: Hair loss Negative for: Rash, Skin changes and Nail changes EYES: Positive for: Eye dryness Negative for: Eye pain, Eye redness and visual disturbance CARDIOVASCULAR: Negative for: Chest pain and Leg swelling GENITOURINARY: Negative for: Dysuria and Hematuria HEMATOLOGIC/LYMPHATIC: Negative for: Swollen glands REVIEW OF SYSTEMS Complete ROS (HEENT, respiratory, cardiology, GI, , skin, psych, hematology, endocrine, neuro, musculoskeletal) negativee except as noted in HPI. PAST MEDICAL HISTORY PAST MEDICAL HISTORY Diagnosis Date Adjustment disorder with depressed mood 03/21/2007 [facility]. Dysthymic disorder 02/09/2005 Fibromyalgia 03/2012 Hyperlipidemia Migraine without aura, without mention of intractable migraine without mention of status migrainosus 02/09/2005 Myalgia and myositis, unspecified 11/03/2004 low back pain, cervical spondylosis, fibromyalgia Obstructive sleep apnea [facility] Other and unspecified hyperlipidemia 11/03/2004 Other psoriasis 03/13/2008 Dr. Umanzor. Postmenopausal atrophic vaginitis Psoriatic arthritis (HCC) Shingles Snoring Symptomatic menopausal or female climacteric states Unspecified hemorrhoids without mention of complication /internal PAST SURGICAL HISTORY PAST SURGICAL HISTORY Procedure Laterality Date COLONOSCOPY FLX DX W/COLLJ SPEC WHEN PFRMD 06/13/2004 Colonoscopy COLONOSCOPY FLX DX W/COLLJ SPEC WHEN PFRMD 05/31/14 Colonoscopy NEUROPLASTY &/TRANSPOS MEDIAN NRV CARPAL TUNNE Carpal tunnel decomp right NEUROPLASTY &/TRANSPOS MEDIAN NRV CARPAL TUNNE 01/06/2005 left CTR TONSILLECTOMY PRIMARY/SECONDARY <AGE 11 Tonsillectomy TOTAL ABDOMINAL HYSTERECT W/WO RMVL TUBE OVARY 1992 Hysterectomy, DOROTHEA/bso for endometriosiss FAMILY HISTORY: Father with unspecified back problems FAMILY HISTORY Problem Relation Age of Onset Breast Cancer Mother late 60s Heart Mother Hodgkin Lymphoma Brother in 2011 Heart Father dementia Lipids Brother Breast Cancer Sister 43 Mastectomy Oct 2019 other (hodkins lymphoma) Son 27 SOCIAL HISTORY: Had many part-time jobs over the years, currently retired Never smoker Denies alcohol Takes fish oil, calcium, iron Social History Tobacco Use Smoking status: Never Smokeless tobacco: Never Vaping Use Vaping Use: Never used Substance Use Topics Alcohol use: No Drug use: No MEDICATIONS Current Outpatient Medications Medication Sig traZODone (DESYREL) 50 mg tablet Take 1 tablet by mouth daily at bedtime. tiZANidine (ZANAFLEX) 4 mg tablet Take 1 tablet by mouth every 8 hours as needed (muscle spasms). (Dr. García) gabapentin (NEURONTIN) 300 mg capsule Take 1 capsule by mouth daily at bedtime. (Dr. García) Magnesium Oxide 500 mg cap Takes OTC 1 per day CPAP Mask (per patient preference) optional chin strap (if indicated), filters, tubing / heated tubing, heated humidity and lifetime supplies. Dx. YAMILE G47.33 327.23 DULoxetine (CYMBALTA) 60 mg capsule Take 1 capsule by mouth once daily. (Cr. García) ferrous sulfate 325 mg (65 mg iron) tablet Take 1 tablet by mouth daily with breakfast. With Vitamin C 500 mg daily CPAP autoCPAP 5-15 cmH2O, mask, tubing, filters, heated humidity, lifetime supplies. Dx: YAMILE loratadine (CLARITIN) 10 mg tablet Take 1 tablet by mouth once daily. (Patient taking differently: Take 10 mg by mouth once daily. prn) Methotrexate Sodium 2.5 mg tablet Take 7 tablets by mouth once a week. LEUCOVORIN CALCIUM ORAL Take by mouth as directed. traMADol 50 mg TbDL Take by mouth as needed. folic acid 1 mg tablet Take 2 tablets by mouth once daily. (Dr. García) meloxicam 15 mg tablet Take 1 tablet by mouth once daily. (Dr. García) BIOTIN 1 MG TAB one tablet daily omega-3 fatty acids/vitamin e(FISH OIL 1,000 MG CAP) one tablet daily Calcium Carbonate-Vitamin D2 (JOSE-600 WITH VITAMIN D) 600-200 mg-unit ORAL Tab Take 1 tablet by mouth once daily. ASPIRIN 81 MG ORAL TAB Take one (1) tablet daily . MULTIVITAMIN ORAL TAB Take one(1) tablet daily. ALLERGIES ALLERGIES Allergen Reactions Celebrex [Celecoxib] GI Upset bloating Laundry Detergent [* Rash Fabric softener also can be a problem Perfumes Rash certain types PHYSICAL EXAM VITAL SIGNS: BP 117/73 Pulse 99 Temp (Src) 97.1 (Temporal) Ht 5' 4 (1.63m) Wt 182 lb (82.6kg) BMI 31.22 kg/(m^2). GENERAL: Alert and oriented, appears stated age. In no acute distress. EYES: PERRL, EOMI, anicteric sclerae, no conjunctival injection HENT: Normal external examination of the ears and nose, lips, oropharynx and tongue. No oropharyngeal lesions or exudate. No oral or nasal sores. Slightly dry oral mucosa NECK: No mass or asymmetry. No lymphadenopathy RESPIRATORY: Normal respiratory effort. Clear to auscultation bilaterally CARDIOVASCULAR: Regular in rate and rhythm with 3 out of 6 systolic murmur heard best at right upper sternal border ABDOMEN: Soft, nontender, nondistended NEUROLOGIC: No gross focal neurologic deficits. Cranial nerves II-XII grossly intact. SKIN: No rash, thickening, nodules, discoloration. Normal nails. Normal nailfold capillaries. MSK: Normal range of motion, no deformities, no swelling, and no tenderness in the hands, wrists, elbows, shoulders, spine, hips, knees, ankles, feet except as noted below: Tenderness as below No active dactylitis, enthesitis, synovitis, tendinitis Joint Exam 04/09/2022 Right Left PIP 2 Tender PIP 3 Tender PIP 4 Tender Tender DIP 4 Tender DIP 5 Tender Cervical Spine Tender Thoracic Spine Tender Lumbar Spine Tender The following joints were examined and normal: Left Sternoclavicular, Right Sternoclavicular, Left Acromioclavicular, Right Acromioclavicular, Left Glenohumeral, Right Glenohumeral, Left Elbow, Right Elbow, Left Wrist, Right Wrist, Left MCP 1, Right MCP 1, Left MCP 2, Right MCP 2, Left MCP 3, Right MCP 3, Left MCP 4, Right MCP 4, Left MCP 5, Right MCP 5, Left IP, Right IP, Left PIP 2, Left PIP 3, Left PIP 5, Right PIP 5, Left Sacroiliac, Right Sacroiliac, Left Knee, Right Knee, Left Ankle, Right Ankle, Left Tarsometatarsal, Right Tarsometatarsal, Left MTP 1, Right MTP 1, Left MTP 2, Right MTP 2, Left MTP 3, Right MTP 3, Left MTP 4, Right MTP 4, Left MTP 5, Right MTP 5 Joint Exam Data (across time) Joint Exam 04/09/2022 Total Tender 4 Total Swollen 0 LABS Reviewed in [facility], notable for: Pending from today CBC Latest Ref Rng & Units 09/20/2018 11/20/2020 12/10/2021 04/09/2022 WBC 3.70 - 11.00 k/uL 5.88 5.01 5.42 6.41 HEMOGLOBIN 11.5 - 15.5 g/dL 12.9 13.3 13.4 12.5 HEMOGLOBIN, ZACHARY 12.0 - 16.0 g/dL - - - - HEMATOCRIT 36.0 - 46.0 % 40.6 41.1 42.0 38.4 PLATELETS 150 - 400 k/uL 290 249 258 243 ABS NEUT (ANC) 1.45 - 7.50 k/uL 3.82 2.65 3.36 4.27 ABS NEUT, ZACHARY 2.0 - 8.1 k/uL - - - - ABS LYMP, ZACHARY 1.0 - 5.5 k/uL - - - - ABS LYMPH 1.00 - 4.00 k/uL 1.31 1.53 1.20 1.08 CMP Latest Ref Rng & Units 09/20/2018 11/20/2020 12/10/2021 04/09/2022 SODIUM 136 - 144 mmol/L 138 142 141 143 SODIUM, ZACHARY 132 - 148 mmol/L - - - - SODIUM, ZACHARY 132 - 148 mmol/L - - - - POTASSIUM 3.7 - 5.1 mmol/L 4.2 4.0 4.4 3.9 POTASSIUM, ZACHARY 3.5 - 5.0 mmol/L - - - - CHLORIDE 97 - 105 mmol/L 100 102 102 103 CHLORIDE, ZACHARY 98 - 110 mmol/L - - - - CO2 22 - 30 mmol/L 27 28 28 CO2, ZACHARY 23.0 - 32.0 mmol/L - - - - GLUCOSE 74 - 99 mg/dL 88 83 97 89 GLUCOSE, ZACHARY 65 - 100 mg/dL - - - - BUN 7 - 21 mg/dL 15 16 23(H) 20 BUN, ZACHARY 10 - 25 mg/dL - - - - CREATININE 0.58 - 0.96 mg/dL 0.90 0.91 0.82 0.96 CREATININE, ZACHARY 0.7 - 1.4 mg/dL - - - - CALCIUM, ZACHARY 8.5 - 10.5 mg/dL - - - - CALCIUM, TOTAL 8.5 - 10.2 mg/dL 9.7 9.5 9.8 10.0 AST 13 - 35 U/L 30 28 28 27 AST, ZACHARY 7 - 40 U/L - - - - ALT 7 - 38 U/L 21 19 20 19 ALT, ZACHARY 0 - 45 U/L - - - - ALKALINE PHOSPHATASE 34 - 123 U/L 79 78 80 90 ESR, WSR Latest Ref Rng & Units 04/09/2022 WSR 0 - 20 mm/hr 10 CRP Latest Ref Rng & Units 04/09/2022 CRP <0.9 mg/dL 1.0(H) C3, C4 Latest Ref Rng & Units 04/09/2022 C3 86 - 166 mg/dL 154 C4 13 - 46 mg/dL 23 CK Latest Ref Rng & Units 04/17/2003 11/09/2012 CK 30 - 220 U/L 116 101 RF and CCP Latest Ref Rng & Units 04/09/2022 RHEUMATOID FACTOR <16 IU/mL <10 Hepatitis Screen Latest Ref Rng & Units 09/20/2017 12/07/2017 HEPCABEIA Negative Equivocal(A) Negative Antibodies Latest Ref Rng & Units 09/16/2017 PT SEC 9.7 - 13.0 sec 9.7 PT INR 0.9 - 1.3 0.9 PTT 23.0 - 32.4 sec 27.6 Urinalysis Latest Ref Rng & Units 11/27/2004 01/02/2005 04/09/2022 PROTEIN, URINE Trace, Negative - - Trace RBC, URINE 0-3 /HPF - - 0-3 /HPF RBC, URINE, ZACHARY /hpf OCC Negative - PROTEIN/CREATININE RATIO <0.15 mg/mg - - 0.09 IMAGING Reviewed in [facility], notable for: Outside x-rays left knee 12/2020: Mild tricompartmental OA, chondrocalcinosis 04/2011 pelvis x-ray: Normal 04/2011 lumbar x-ray: Degenerative changes of spine 01/2014 bone density scan: Osteopenia lowest T score -1.2 left femoral neck, FRAX 8.0% major, 0.7% hip ASSESSMENT Josy Jones is a 71 year old White female with a history of hypercholesterolemia, migraine, psoriasis, mood disorder, scoliosis, YAMILE on CPAP, restless legs who presents rheumatology clinic for second opinion. Today she is presenting with historical diagnosis of psoriasis and psoriatic arthritis as well as osteoarthritis and overlying chronic pain syndrome consistent with fibromyalgia. In terms of her psoriasis, it is under excellent control with the methotrexate. Her psoriatic arthritis is likely under good control. She does have some tenderness on exam particularly in her fingers which could be indicative of active psoriatic arthritis versus osteoarthritis. The tenderness of her spine is likely of chronic pain phenomenon as it is more mechanical in nature. Discussed options including obtaining synovial screen ultrasound of her hands for further evaluation, she deferred for now but is agreeable to x-rays. We will obtain updated hand x-rays. Discussed options including continuing on the methotrexate versus slow down titration pending work-up. In terms of her supplements, it is unclear why she is on both folic acid and leucovorin. Typically we only do one and if she is having side effects would choose leucovorin. She does not endorse significant side effects other than hair straightening of the methotrexate. Okay to continue for now but would likely not need both. Due to sicca symptoms will evaluate for Sjogren's serologically. For her chronic pain, she does have a component of osteoarthritis particularly in her knees which she is following with orthopedics. She is due for knee injections and will be following up with them soon. Encouraged her to speak with them about risks and benefits of optimal timing for knee surgery if she were to want that. Discussed options including continuing her current medications versus referral to pain management for further evaluation. I would hesitate to keep her on tramadol and tizanidine long-term due to potential side effects particularly with cognitive function, fall risk, sleepiness, etc. She will need regular monitoring if she is to continue on the NSAID. I do not have all the updated knee x-rays that she has had done, however I do have one yesterday report that showed chondrocalcinosis. I have low suspicion for ongoing CPPD as she does not have typical attacks with red hot swollen joints that improve over 1 to 2 weeks. This is likely a benign finding and does not require an additional work-up or management. She does have a history of osteopenia based on last DEXA 01/2014. We will repeat this anytime and recheck vitamin D. IMPRESSIONS Diagnoses: (L40.50) Psoriatic arthritis (HCC) (primary encounter diagnosis) (M79.7) Fibromyalgia (M85.80) Osteopenia, unspecified location (L40.9) Psoriasis (M35.00) Sicca syndrome (HCC) (M81.8) Other osteoporosis without current pathological fracture (M89.9) Disorder of bone, unspecified (Z13.820) Encounter for screening for osteoporosis PLAN 1. Labs and x-rays as below 2. Okay to continue current medications, if no concern for erosive disease can discussed with patient down titrating her methotrexate to see how she does noting that it could worsen her skin disease 3. Okay to continue with pain regimen for now, will be cautious with the tramadol and tizanidine in the long-term due to potential side effects and fall risk 4. Encouraged regular exercise for fibromyalgia 5. Follow-up with PCP regarding heart murmur, recommend TTE 6. Due for repeat bone density scan, ordered 7. If hand symptoms worsen, would recommend synovial screen ultrasound of her hands for evaluation of active psoriatic arthritis 8. Follow-up 4 weeks to discuss results and next steps Orders this visit: Office Visit on 04/09/22 DXA-AXIAL SKELETON US HAND/WRIST SYNOVIAL SCREEN RT US HAND/WRIST SYNOVIAL SCREEN LT XR HAND GENERAL 3V PA/LAT/OBL BILATERAL C-REACTIVE PROTEIN (CRP) SED RATE WESTERGREN COMP METABOLIC PANEL CBC + DIFF PROTEIN ELECT RND UR W/INTERP PROTEIN CREATININE RATIO URINALYSIS WITH MICROSCOPIC, REFLEX CULTURE KAPPA/KOENIG,FREE,SER PROTEIN ELECTROPHORESIS SERUM W/INTERP C4 COMPLEMENT BLD C3 COMPLEMENT BLD SJOGREN ABS SSA/SSB NAE BY IFA WITH REFLEX RHEUMATOID FACTOR BL IMMUNOFIXATION SCREEN, SERUM MONOCLONAL PROT UR W/INTERP VITAMIN D 25 HYDROXY CONSULT TO RHEUM/IMMUN DISEASE Return in about 4 weeks (around 05/07/2022). I spent a total of 85 minutes on the date of the service which included preparing to see the patient, [id number] patient care, completing clinical documentation, obtaining and/or reviewing separately obtained history, performing a medically appropriate examination, counseling and educating the patient/family/caregiver, and ordering medications, tests, or procedures. This note was partially generated with the assistance of [employer] voice recognition software. An attempt was made to correct any dictation errors however there may be some incorrect words, spellings, and punctuation. ___ Hattie Brownlee MD Rheumatology Date: April 09, 2022 Time: 8:56 AM documented in this encounter [facility] 04-09-2022 Instructions Hattie Brownlee MD - 04/09/2022 8:52 AM EST Labs today to evaluate Sjogren's X rays today of your hands Call to schedule ultrasound of your hands and bone density Ok to continue your medications for now, we may go down on methotrexate if ultrasound looks good Follow up 4 weeks, video visit ok BONE MINERAL DENSITY PATIENT INSTRUCTIONS ======= Bone mineral density testing measures the amount of calcium in certain parts of your bones. This information determines how strong your bones are. The test is used to detect osteoporosis, a disease in which the bone's mineral content and density are low, increasing a person's risk of fractures. The lumbar spine (lower back) and the hip are the skeletal sites usually examined. For the test, remember that: 1. You cannot take this test if you are . 2. Eat a normal diet on the day of the test. 3. Take your medications as you normally would. 4. DO NOT take calcium supplements (such as Tums) for 24 hours before the test. 5. On the day of the test, leave valuables (jewelry or credit cards) at home. 6. The test should be performed prior to oral, rectal or IV contrast studies, or at least 7 days after any of these studies. For the test, you may be asked to wear a hospital gown. You will lie on your back, on a padded table, in a comfortable position. Generally, you can resume your usual activities immediately. documented in this encounter [facility] 03-19-2022 Miscellaneous Notes March 19, 2022 PID: [id number] Josy Jones [address] [place] [address] Dear Ms. Jones, We are pleased to inform you that the results of your recent breast imaging exam on 03/19/2022 are normal. Your mammogram demonstrates that you have dense breast tissue, which could hide abnormalities. Dense breast tissue, in and of itself, is a relatively common condition. Therefore, this information is not provided to cause undue concern; rather, it is to raise your awareness and promote discussion with your health care provider regarding the presence of dense breast tissue in addition to other risk factors. Early detection of cancer is very important. We also understand recommendations regarding breast cancer screening are controversial. Please discuss with your primary care provider which strategy is best for you and whether a mammogram is right for you. Your imaging studies and report will be kept on file at [facility] as part of your permanent medical record and are available for your continuing care. Thank you for allowing us to help in meeting your health care needs. Sincerely, Dr. Allan Interpreting Radiologist [facility] (Normal over 40) documented in this encounter [facility] 03-19-2022 Note HNO ID: [id number] Author: Elaina Licea Service: ? Author Type: Plate And Frame Filter Operator Type: Progress Notes Filed: 03/19/2022 11:40 AM Note Text: Radiology Service Progress Note PATIENT NAME: Josy Jones DATE OF SERVICE: March 19, 2022 TIME: 11:22 AM PATIENT IDENTITY VERIFICATION COMPLETED USING TWO (2) IDENTIFIERS: Name and Date of confirmed by patient verbally. FALL SCREENING: Has the patient had 2 falls in the last year or 1 fall with injury or currently using an Ambulatory Assistive Device (Walker, Cane, Wheelchair, Crutches, etc.)? No PATIENT GENDER DATA: Female. status: : No status: NO. PATIENT RELEVANT IMPLANT DATA REVIEWED: Not Applicable RADIOLOGY DEPARTMENT: Mammography PERIPHERAL IV DATA: Not applicable SIGNED BY: Lawrence [employer] March 19, 2022 11:22 AM [facility] 03-19-2022 History of Present illness Narrative Radiology Service Progress Note PATIENT NAME: Josy Jones DATE OF SERVICE: March 19, 2022 TIME: 11:22 AM PATIENT IDENTITY VERIFICATION COMPLETED USING TWO (2) IDENTIFIERS: Name and Date of confirmed by patient verbally. FALL SCREENING: Has the patient had 2 falls in the last year or 1 fall with injury or currently using an Ambulatory Assistive Device (Walker, Cane, Wheelchair, Crutches, etc.)? No PATIENT GENDER DATA: Female. status: : No status: NO. PATIENT RELEVANT IMPLANT DATA REVIEWED: Not Applicable RADIOLOGY DEPARTMENT: Mammography PERIPHERAL IV DATA: Not applicable SIGNED BY: Elaina Licea March 19, 2022 11:22 AM documented in this encounter [facility] 12-10-2021 Miscellaneous Notes Addended by: BOYD WHITE on: 12/10/2021 11:58 AM Modules accepted: Orders See requested labs ordered as requested Boyd White DO Patient in [facility] for labs, Dr. Glez ordered CBC, CMP and lipid on 10/09 which yesterday. Asking if these can be ordered so she can do today documented in this encounter [facility] 12-08-2021 Miscellaneous Notes Orders in chart documented in this encounter [facility] 10-08-2021 Miscellaneous Notes Patient has appointment 12/05 and needs lab orders, requested a month ago.. please advise documented in this encounter [facility] documented as of this encounter (statuses as of 10/09/2021) [facility] History of Past illness Narrative* Problem Noted Date Resolved Date Low ferritin concern 05/29/2015 11/24/2017 Iron deficiency concern 05/29/2015 05/29/19 16 Hypothyroidism concern 05/29/2015 8 Iron (Fe) deficiency anemia concern 05/29/2015 11/24/2017 Special screening for malignant neoplasms, colon 05/31/2014 05/31/2014 Dyspareunia 10/09/2009 10/24/2010 Symptomatic menopausal or female climacteric sta hailey 07/05/2006 10/24/2010 Patellar tendinitis 03/30/2005 02/01/2006 Dysthymic disorder 02/09/2005 02/01/2006 Carpal tunnel syndrome 02/02/2005 5 documented as of this encounter (statuses as of 12/08/2021) [facility] History of Past illness Narrative* Problem Noted Date Resolved Date Low ferritin concern 05/29/2015 11/24/2017 Iron deficiency concern 05/29/2015 05/29/19 16 Hypothyroidism concern 05/29/2015 8 Iron (Fe) deficiency anemia concern 05/29/2015 11/24/2017 Special screening for malignant neoplasms, colon 05/31/2014 05/31/2014 Dyspareunia 10/09/2009 10/24/2010 Symptomatic menopausal or female climacteric sta hailey 07/05/2006 10/24/2010 Patellar tendinitis 03/30/2005 02/01/2006 Dysthymic disorder 02/09/2005 02/01/2006 Carpal tunnel syndrome 02/02/2005 5 documented as of this encounter (statuses as of 12/10/2021) [facility] History of Past illness Narrative* Problem Noted Date Resolved Date Low ferritin concern 05/29/2015 11/24/2017 Iron deficiency concern 05/29/2015 05/29/19 16 Hypothyroidism concern 05/29/2015 8 Iron (Fe) deficiency anemia concern 05/29/2015 11/24/2017 Special screening for malignant neoplasms, colon 05/31/2014 05/31/2014 Dyspareunia 10/09/2009 10/24/2010 Symptomatic menopausal or female climacteric sta hailey 07/05/2006 10/24/2010 Patellar tendinitis 03/30/2005 02/01/2006 Dysthymic disorder 02/09/2005 02/01/2006 Carpal tunnel syndrome 02/02/2005 5 documented as of this encounter (statuses as of 03/21/2022) [facility] History of Past illness Narrative* Problem Noted Date Resolved Date Low ferritin concern 05/29/2015 11/24/2017 Iron deficiency concern 05/29/2015 05/29/19 16 Hypothyroidism concern 05/29/2015 8 Iron (Fe) deficiency anemia concern 05/29/2015 11/24/2017 Special screening for malignant neoplasms, colon 05/31/2014 05/31/2014 Dyspareunia 10/09/2009 10/24/2010 Symptomatic menopausal or female climacteric sta hailey 07/05/2006 10/24/2010 Patellar tendinitis 03/30/2005 02/01/2006 Dysthymic disorder 02/09/2005 02/01/2006 Carpal tunnel syndrome 02/02/2005 5 documented as of this encounter (statuses as of 03/27/2022) [facility] of Past illness Narrative* Problem Noted Date Resolved Date Low ferritin concern 05/29/2015 11/24/2017 Iron deficiency concern 05/29/2015 05/29/19 16 Hypothyroidism concern 05/29/2015 8 Iron (Fe) deficiency anemia concern 05/29/2015 11/24/2017 Special screening for malignant neoplasms, colon 05/31/2014 05/31/2014 Dyspareunia 10/09/2009 10/24/2010 Symptomatic menopausal or female climacteric sta hailey 07/05/2006 10/24/2010 Patellar tendinitis 03/30/2005 02/01/2006 Dysthymic disorder 02/09/2005 02/01/2006 Carpal tunnel syndrome 02/02/2005 5 documented as of this encounter (statuses as of 04/10/2022) [facility] of Past illness Narrative* Problem Noted Date Resolved Date Low ferritin concern 05/29/2015 11/24/2017 Iron deficiency concern 05/29/2015 05/29/19 16 Hypothyroidism concern 05/29/2015 8 Iron (Fe) deficiency anemia concern 05/29/2015 11/24/2017 Special screening for malignant neoplasms, colon 05/31/2014 05/31/2014 Dyspareunia 10/09/2009 10/24/2010 Symptomatic menopausal or female climacteric sta hailey 07/05/2006 10/24/2010 Patellar tendinitis 03/30/2005 02/01/2006 Dysthymic disorder 02/09/2005 02/01/2006 Carpal tunnel syndrome 02/02/2005 5 documented as of this encounter (statuses as of 04/24/2022) [facility] of Past illness Narrative* Problem Noted Date Resolved Date Low ferritin concern 05/29/2015 11/24/2017 Iron deficiency concern 05/29/2015 05/29/19 16 Hypothyroidism concern 05/29/2015 8 Iron (Fe) deficiency anemia concern 05/29/2015 11/24/2017 Special screening for malignant neoplasms, colon 05/31/2014 05/31/2014 Dyspareunia 10/09/2009 10/24/2010 Symptomatic menopausal or female climacteric sta hailey 07/05/2006 10/24/2010 Patellar tendinitis 03/30/2005 02/01/2006 Dysthymic disorder 02/09/2005 02/01/2006 Carpal tunnel syndrome 02/02/2005 5 documented as of this encounter (statuses as of 07/22/2022) [facility] of Past illness Narrative* Problem Noted Date Resolved Date Low ferritin concern 05/29/2015 11/24/2017 Iron deficiency concern 05/29/2015 05/29/19 16 Hypothyroidism concern 05/29/2015 8 Iron (Fe) deficiency anemia concern 05/29/2015 11/24/2017 Special screening for malignant neoplasms, colon 05/31/2014 05/31/2014 Dyspareunia 10/09/2009 10/24/2010 Symptomatic menopausal or female climacteric sta hailey 07/05/2006 10/24/2010 Patellar tendinitis 03/30/2005 02/01/2006 Dysthymic disorder 02/09/2005 02/01/2006 Carpal tunnel syndrome 02/02/2005 5 documented as of this encounter (statuses as of 08/05/2022) [facility] of Past illness Narrative* Problem Noted Date Resolved Date Low ferritin concern 05/29/2015 11/24/2017 Iron deficiency concern 05/29/2015 03/23/20 16 Hypothyroidism concern 05/29/2015 8 Iron (Fe) deficiency anemia concern 05/29/2015 11/24/2017 Special screening for malignant neoplasms, colon 05/31/2014 05/31/2014 Dyspareunia 10/09/2009 10/24/2010 Symptomatic menopausal or female climacteric sta hailey 07/05/2006 10/24/2010 Patellar tendinitis 03/30/2005 02/01/2006 Dysthymic disorder 02/09/2005 02/01/2006 Carpal tunnel syndrome 02/02/2005 5 documented as of this encounter (statuses as of 08/10/2022) [facility] of Past illness Narrative* Problem Noted Date Diagnosed Date Resolved Date Low ferritin concern 05/29/2015 018 Iron deficiency concern 05/29/201505/07 Hypothyroidism concern 05/29/201511/24 Iron (Fe) deficiency anemia concern 05/29/2015 11/24/2017 Special screening for malign ant neoplasms, colon 05/31/2014 05/31/2014 Dyspareunia 10/09/2009 10/24/2010 Symptomatic menopausal or fe male climacteric states 07/05/2006 10/24/2010 Patellar tendinitis 03/30/2005 02/02/20 06 Dysthymic disorder 02/09/2005 6 Carpal tunnel syndrome 02/02/200502/03 documented as of this encounter (statuses as of 10/15/2022) [facility] of Past illness Narrative* Problem Noted Date Diagnosed Date Resolved Date Low ferritin concern 05/29/2015 018 Iron deficiency concern 05/29/201505/07 Hypothyroidism concern 05/29/201511/24 Iron (Fe) deficiency anemia concern 05/29/2015 11/24/2017 Special screening for malign ant neoplasms, colon 05/31/2014 05/31/2014 Dyspareunia 10/09/2009 10/24/2010 Symptomatic menopausal or fe male climacteric states 07/05/2006 10/24/2010 Patellar tendinitis 03/30/2005 02/02/20 06 Dysthymic disorder 02/09/2005 6 Carpal tunnel syndrome 02/02/200502/03 documented as of this encounter (statuses as of 01/10/2023) [facility] of [facility] illness Narrative* Problem Noted Date Diagnosed Date Resolved Date Low ferritin concern 05/29/2015 018 Iron deficiency concern 05/29/201505/07 Hypothyroidism concern 05/29/201511/24 Iron (Fe) deficiency anemia concern 05/29/2015 11/24/2017 Special screening for malign ant neoplasms, colon 05/31/2014 05/31/2014 Dyspareunia 10/09/2009 10/24/2010 Symptomatic menopausal or fe male climacteric states 07/05/2006 10/24/2010 Patellar tendinitis 03/30/2005 02/02/20 06 Dysthymic disorder 02/09/2005 6 Carpal tunnel syndrome 02/02/200502/03 documented as of this encounter (statuses as of 01/10/2023) [facility] of [facility] Narrative* Problem Noted Date Diagnosed Date Resolved Date Low ferritin concern 05/29/2015 018 Iron deficiency concern 05/29/201505/07 Hypothyroidism concern 05/29/201511/24 Iron (Fe) deficiency anemia concern 05/29/2015 11/24/2017 Special screening for malign ant neoplasms, colon 05/31/2014 05/31/2014 Dyspareunia 10/09/2009 10/24/2010 Symptomatic menopausal or fe male climacteric states 07/05/2006 10/24/2010 Patellar tendinitis 03/30/2005 02/02/20 06 Dysthymic disorder 02/09/2005 6 Carpal tunnel syndrome 02/02/200502/03 documented as of this encounter (statuses as of 02/01/2023) [facility] No data available for this section [facility] Evaluation note* Diagnosis Hypercholesterolemia- Primary Pure hypercholesterolemia Adjustment disorder with depressed mood [facility] Hypercholesterolemia- Primary Pure hypercholesterolemia Psoriatic arthritis (HCC) Psoriatic arthropathy [facility] Diagnosis Psoriatic arthritis (HCC)- Primary Psoriatic arthropathy Fibromyalgia Mylagia and myositis, unspecified Osteopenia, unspecified location Psoriasis Other psoriasis Sicca syndrome (HCC) Sicca syndrome Other osteoporosis without current pathological fracture Disorder of bone, unspecified Encounter for screening for osteoporosis Special screening for osteoporosis documented in this encounter [facility] note* Diagnosis Chronic pain of right knee- Primary Osteoarthritis of right knee, unspecified osteoarthritis type Pre-op exam Preoperative examination, unspecified Obesity, Class I, BMI 30-34.9 Obesity, unspecified Fibromyalgia Mylagia and myositis, unspecified Hypercholesterolemia Pure hypercholesterolemia YAMILE (obstructive sleep apnea) Obstructive sleep apnea (adult) (pediatric) documented in this encounter [facility] note* Diagnosis Psoriatic arthritis (HCC)- Primary Psoriatic arthropathy Fibromyalgia Mylagia and myositis, unspecified Other insomnia documented in this encounter [facility] note* Diagnosis Encounter for screening mammogram for breast cancer documented in this encounter [facility] note* Diagnosis Psoriatic arthritis (HCC) Psoriatic arthropathy Sicca syndrome (HCC) Sicca syndrome Other osteoporosis without current pathological fracture documented in this encounter [facility] Discharge instructions No data available for this section [facility] Progress note No data available for this section [facility] Reason for referral (narrative)* Diagnostic Procedure Only (Routine) - Closed Specialty Diagnoses / Procedures Referred By Contac t Referred To Contact XR IMAGING Diagnoses Psoriatic arthritis (HCC) Sicca syndrome (HCC) Procedures XR HAND GENERAL 3V PA/LAT/OBL BILATERAL RADEX HAND MINIMUM 3 [place] [id number] [place] [phone] Xr Imaging Referral ID Status Reason Start Date Expiration Date V isits Requested Visits Authorized [id number] Closed Auto-Generate d Referral 04/09/2022 05/09/2023 1 1 * Diagnostic Procedure Only (Routine) - Pending Review Specialty Diagnoses / Procedures Referred By Contac t Referred To Contact US IMAGING Diagnoses Psoriatic arthritis (HCC) Sicca syndrome (HCC) Procedures US HAND/WRIST SYNOVIAL SCREEN LT US COMPL JOINT R-T W/[place] [address] [place] [address] [facility] Imaging Referral ID Status Reason Start Date Expiration Date Visits Requested Visits Authorized [id number] Pending Review Auto-Generat ed Referral 04/09/2022 05/09/2023 1 1 * Diagnostic Procedure Only (Routine) - Pending Review Specialty Diagnoses / Procedures Referred By Angela lopez Referred To Contact US IMAGING Diagnoses Psoriatic arthritis (HCC) Sicca syndrome (HCC) Procedures US HAND/WRIST SYNOVIAL SCREEN RT US COMPL JOINT R-T W/[place] [address] [address] [place] [phone] [facility] Referral ID Status Reason Start Date Expiration Date Visits Requested Visits Authorized [id number] Pending Review Auto-Generat ed Referral 04/09/2022 05/09/2023 1 1 [facility] for referral (narrative)* Diagnostic Procedure Only (Routine) - Closed Specialty Diagnoses / Procedures Referred By Angela lopez Referred To Contact BR IMAGING Diagnoses Encounter for screening mammogram for breast cancer Procedures RADHA SCREENING W ELENA SCREENING BREAST DGTL ELENA UNI/BILAT ADD ON SCREENING MAMMOGRAPHY BI 2-VIEW BREAST INC CAD Josy Alvarado MD [address] [place], [place] [address] [address] [facility] [address] [place] [address] Referral ID Status Reason Start Date Expiration Date V isits Requested Visits Authorized [id number] Closed Auto-Generate d Referral 03/17/2021 04/16/2022 1 1 [facility] for visit Narrative* Diagnostic Procedure Only (Routine) - Closed Specialty Diagnoses / Procedures Referred By Angela lopez Referred To Contact BR IMAGING Diagnoses Encounter for screening mammogram for breast cancer Procedures RADHA SCREENING W ELENA SCREENING BREAST DGTL ELENA UNI/BILAT ADD ON SCREENING MAMMOGRAPHY BI 2-VIEW BREAST INC CAD Josy Alvarado MD [address] [place] [address] [facility] [address] [place] [address] Referral ID Status Reason Start Date Expiration Date V isits Requested Visits Authorized [id number] Closed Auto-Generate d Referral 03/17/2021 04/16/2022 1 1 [facility] Summary Purpose Family History No Family History Records FoundNo Family History Records Found Advance Directives No Advanced Directives Records FoundNo Advanced Directives Records Found Reason for Referral Specialty Diagnoses / Procedures Referred By Angela t Referred To Contact Diagnoses Other insomnia Procedures CONSULT TO SLEEP MEDICINE - ADULT OFFICE/OUTPATIENT [facility] 60-[place] [address] [place] [address] Referral ID Status Reason Start Date Expiration Date Visits Requested Visits Authorized [id number] Authorized PCP Requested Referral 10/15/2022 10/15/2023 1 1 Additional Source Comments Source Comments (unrecognize d section and content) In the event this informatio n is protected by the Federal Confidentiality of Alcohol and Drug Abuse Patient Records regulations: The Federal rules restrict any use of the information to criminally investigate or prosecute any alcohol or drug abuse patient.[facility] the event this information is protected by the Federal Confidentiality of Alcohol and Drug Abuse Patient Records regulations: The Federal rules restrict any use of the information to criminally investigate or prosecute any alcohol or drug abuse patient.[facility] the event this information is protected by the Federal Confidentiality of Alcohol and Drug Abuse Patient Records regulations: The Federal rules restrict any use of the information to criminally investigate or prosecute any alcohol or drug abuse patient.[facility] HospitalIn the event this information is protected by the Federal Confidentiality of Alcohol and Drug Abuse Patient Records regulations: The Federal rules restrict any use of the information to criminally investigate or prosecute any alcohol or drug abuse patient.[facility] Hospital[facility] the event this information is protected by the Federal Confidentiality of Alcohol and Drug Abuse Patient Records regulations: The Federal rules restrict any use of the information to criminally investigate or prosecute any alcohol or drug abuse patient.[facility] HospitalIn the event this information is protected by the Federal Confidentiality of Alcohol and Drug Abuse Patient Records regulations: The Federal rules restrict any use of the information to criminally investigate or prosecute any alcohol or drug abuse patient.[facility] HospitalIn the event this information is protected by the Federal Confidentiality of Alcohol and Drug Abuse Patient Records regulations: The Federal rules restrict any use of the information to criminally investigate or prosecute any alcohol or drug abuse patient.[facility] HospitalIn the event this information is protected by the Federal Confidentiality of Alcohol and Drug Abuse Patient Records regulations: The Federal rules restrict any use of the information to criminally investigate or prosecute any alcohol or drug abuse patient.[facility] HospitalIn the event this information is protected by the Federal Confidentiality of Alcohol and Drug Abuse Patient Records regulations: The Federal rules restrict any use of the information to criminally investigate or prosecute any alcohol or drug abuse patient.[facility] HospitalIn the event this information is protected by the Federal Confidentiality of Alcohol and Drug Abuse Patient Records regulations: The Federal rules restrict any use of the information to criminally investigate or prosecute any alcohol or drug abuse patient.[facility] HospitalIn the event this information is protected by the Federal Confidentiality of Alcohol and Drug Abuse Patient Records regulations: The Federal rules restrict any use of the information to criminally investigate or prosecute any alcohol or drug abuse patient.[facility] HospitalIn the event this information is protected by the Federal Confidentiality of Alcohol and Drug Abuse Patient Records regulations: The Federal rules restrict any use of the information to criminally investigate or prosecute any alcohol or drug abuse patient.[facility] HospitalIn the event this information is protected by the Federal Confidentiality of Alcohol and Drug Abuse Patient Records regulations: The Federal rules restrict any use of the information to criminally investigate or prosecute any alcohol or drug abuse patient.[facility] HospitalIn the event this information is protected by the Federal Confidentiality of Alcohol and Drug Abuse Patient Records regulations: The Federal rules restrict any use of the information to criminally investigate or prosecute any alcohol or drug abuse patient.[facility] Care Teams (unrecognized sec tion and content) Insulation Power Unit Tender Relationship Specialty Start Date End Date Elvie Glez MD [address] [place] [id number] PCP - General 04/02/09 Insulation Power Unit Tender Relationship Specialty Start Date End Date Elvie Glez MD [address] [place] [address] [id number] PCP - General 04/02/09 Insulation Power Unit Tender Relationship Specialty Start Date End Date Elvie Glez MD [address] [place] [address] [id number] PCP - General 04/02/09 Insulation Power Unit Tender Relationship Specialty Start Date End Date Elvie Glez MD [address] [place] [address] [place] [address] PCP - General 04/02/09 Insulation Power Unit Tender Relationship Specialty Start Date End Date Elvie Glez MD [address] [place] [address] [place] [id number] PCP - General 04/02/09 Insulation Power Unit Tender Relationship Specialty Start Date End Date Elvie Glez MD [address] [place] [address] [place] [address] PCP - General 04/02/09 Insulation Power Unit Tender Relationship Specialty Start Date End Date Elvie Glez MD [address] [place] [address] [place] [address] PCP - General 04/02/09 Insulation Power Unit Tender Relationship Specialty Start Date End Date Elvie Glez MD [address] [place], [place] [phone] PCP - General 04/02/09 Insulation Power Unit Tender Relationship Specialty Start Date End Date Elvie Glez MD [address] [place], [place] [id number] PCP - General 04/02/09 Insulation Power Unit Tender Relationship Specialty Start Date End Date Elvie Glez MD [address] [place], [place] [phone] PCP - General 04/02/09 Insulation Power Unit Tender Relationship Specialty Start Date End Date Elvie Glez MD [address] [place], [place] [phone] PCP - General 04/02/09 Reason for Visit (unrecogniz ed section and content) Reason Comments New Patient Psoriatic Arthritis Osteoarthritis Osteopenia Specialty Diagnoses / Procedures Referred By Angela lopez Referred To Contact Rheumatology Diagnoses Psoriatic arthritis (HCC) Fibromyalgia Procedures CONSULT TO RHEUM/IMMUN DISEASE OFFICE/OUTPATIENT NEW HIGH MDM 60-74 MINUTES Jacklyn Vincent APRN.FINANCIAL ANALYST [address] [place] [address] Referral ID Status Reason Start Date Expiration Date V isits Requested Visits Authorized [id number] Closed PCP Requested Referral 01/01/2022 01/01/2023 1 1 Reason Comments Appointment Reason Comments Pre-Op Exam needs lab and EKGhav e right knee arthroplasty with Dr. Wellington Reason Comments Pre op clearance form/labs/ekg Reason Comments Established Patient INFORMATION SOURCE (unrecogn ized section and content) DATE CREATED AUTHOR AUTHOR'S ORGANIZ ATION 03/18/2023 [facility] FOR RECORDS PERTAINING TO PATIENTS WHO ARE OR HAVE BEEN ENROLLED IN A CHEMICAL DEPENDENCY/SUBSTANCEABUSE PROGRAM, SOME INFORMATION MAY BE OMITTED. This clinical summary was aggregated from multiple sources. Caution should be exercised in using it in the provision of clinical care. This summary normalizes information from multiple sources, and as a consequence, information in this document may materially change the coding, format and clinical context of patient data. In addition, data may be omitted in some cases. CLINICAL DECISIONS SHOULD BE BASED ON THE PRIMARY CLINICAL RECORDS. [employer] [facility]. provides no warranty or guarantee of the accuracy or completeness of information in this document.
== END | disposition home or self-care (01) ==
LOC: CT 12:35
PROVIDERS: PCP Internal Medicine; Referring Provider Orthopaedic Surgery; Visit Provider Orthopaedic Surgery
DX: M17.12 Unilateral primary osteoarthritis, left knee (principal)
CPT/HCPCS: 73700; 93005

== ENCOUNTER → 2023-04-01 | Outpatient (CLI) | payer MEDICARE, OTHER, SELFPAY ==
--- OUTSIDE RECORDS SUMMARY | 2023-04-01 13:37 | XMS RPT_ITS | CCD ---
Author Name Unknown Address [facility] [address] [place] [address] Organization [facility] Care Team Providers Care Balance Truer Name Role Phone Elvie Glez MD Primary Care Provider NEWTON QUIÑONES, DR BERMEO Primary Care Physician [phone] BOUCHRA QUIROZ, DR NIX Attending Unavailruma GLEZ MD, DR BERMEO Primary Care Unavailable Newton QUIÑONES, Elvie Nobles Primary Care Provider HATTIE BROWNLEE Referring Unavailable TALAMPAS, ELVIE D Primary Care Unavailable VINCENT, JACKLYN Referring Unavailable TALAMPAS, ELVIE D Primary Care Unavailable HATTIE BROWNLEE Attending Unavailable HATTIE BROWNLEE Referring Unavailable TALAMPAS, ELVIE D Primary Care Unavailable TALAMPAS, ELVIE D Primary Care Unavailable TALAMPAS, ELVIE D Referring Unavailable TALAMPAS, ELVIE D Primary Care Unavailable TALAMPAS, ELVIE D Attending Unavailable HATTIE BROWNLEE Referring Unavailable TALAMPAS, ELVIE D Primary Care Unavailable ROBYN MANUEL Attending Unavailable TALAMPAS, ELVIE D Primary Care Unavailable HATTIE BROWNLEE Attending Unavailable HATTIE BROWNLEE Referring Unavailable TALAMPAS, ELVIE D Primary Care Unavailable VINCENT, JACKLYN Referring Unavailable TALAMPAS, ELVIE D Primary Care Unavailable TALAMPAS, ELVIE D Attending Unavailable TALAMPAS, ELVIE D Primary Care Unavailable TALAMPAS, ELVIE D Referring Unavailable JOSY ALVARADO Referring Unavailable TALAMPAS, ELVIE D Primary Care Unavailable JOSY ALVARADO Attending Unavailable TALAMPAS, ELVIE D Primary Care Unavailable VINCENT, JACKLYN Referring Unavailable HATTIE BROWNLEE Attending Unavailable TALAMPAS, ELVIE D Primary Care Unavailable HATTIE BROWNLEE Referring Unavailable TALAMPAS, ELVIE Giuliano Primary Care Unavailable HATTIE BROWNLEE Referring Unavailable GALINDO GLEZA Giuliano Primary Care Unavailable Allergies Allergy Classification Reported Allergen(s) Allergy Type Date of Onset Reaction(s) Facility (15 sources) celecoxib; Translations: [CELECOXIB] Drug Allergy 5 GI Upset [facility] Work Phone: (14 sources) laundry detergent [Other] Propensity to adverse reactions 6 Rash [facility] Work Phone: (15 sources) Perfumes; Translations: [PERFUMES] Propensity to adverse reactions 6 [facility] Work Phone: (1 source) OTHER; Translations: [OTHER] Propensity to adverse reactions (disorder) 6 [facility] Medications Current Medications Medication Drug [...] source) Other fatigue; Translations: [Other fatigue] Onset: 01-04-2023 Episodic Menopausal disorders (14 sources) Atrophic vaginitis; [...] [Scoliosis, unspecified] Onset: 11-23-2011 03-03-2021 Chronic Other bone disease and musculoskeletal deformities (1 source) Disorder of bone; Translations: [Disorder of bone, unspecified] Episodic Other ear and sense organ disorders (1 source) Impacted cerumen, bilateral; Translations: [Bilateral impacted cerumen] Onset: 01-04-2023 Episodic Other hematologic conditions (1 source) Other specified diseases of blood and blood-forming organs; Translations: [Macrocytosis without anemia] Onset: 01-04-2023 Chronic Other hereditary and degenerative nervous system conditions (14 sources) Restless legs; Translations: [Restless legs syndrome] Onset: 05-29-2015 05-29-2015 Chronic Other hereditary and degenerative nervous system conditions (1 source) Restless legs syndrome; Translations: [Restless legs] Onset: 01-04-2023 Chronic Other inflammatory condition of skin (15 [...] I; Translations: [Obesity, unspecified] Onset: 08-05-2022 Chronic Other screening for suspected conditions (not mental disorders or infectious disease) (3 sources) Patient encounter status; Translations: [Encounter for screening for osteoporosis] Onset: 03-24-2023 Episodic Residual codes; unclassified (15 sources) Obstructive sleep [...] membrane dryness; Translations: [Sicca syndrome, unspecified] Onset: 05-19-2022 Chronic Past or Other Problems Problem Classification Problem Date Documented Da te Episodic/Chronic Miscellaneous mental health disorders (14 sources) Disorders of initiating and maintaining sleep; Translations: [Adjustment insomnia] Onset: 07-05-2006 07-05-2006 Episodic Other aftercare (1 source) Other penitentiary (current) drug therapy; Translations: [Encounter for long-term current use of medication] Onset: 10-28-2022 Episodic Other bone disease and musculoskeletal deformities [...] source) Fibromyalgia; Translations: [Fibromyalgia] Onset: 12-01-2019 Episodic Results Test Name Value Interpretation Reference Range Facil ity Vital Signs Date Time Vital Sign Value Performing Clinician Carole kohler 10-15-2022 11:01-0400 Diastolic blood pressure 82 mm[Hg] Hattie Brownlee MD Work Phone: [facility] 10-15-2022 11:01-0400 Heart rate 76 /min Hattie Brownlee MD Work Phone: [facility] 10-15-2022 11:01-0400 Systolic blood pressure 138 mm[Hg] Hattie Brownlee MD Work Phone: [facility] 10-15-2022 10:57-0400 Body height 161.3 cm Hattie Brownlee MD Work Phone: [facility] 10-15-2022 10:57-0400 Body temperature 97.9 [degF] Hattie Brownlee MD Work Phone: [facility] 10-15-2022 10:57-0400 Body weight 84.37 kg Hattie Brownlee MD Work Phone: [facility] 08-05-2022 11:20-0400 Body height 161.3 cm Robyn Kaleb FILLING TECHNICIAN.COPY MESSENGER Work Phone: [facility] 08-05-2022 11:20-0400 Body weight 84.37 kg Robyn Kaleb FILLING TECHNICIAN.COPY MESSENGER Work Phone: [facility] 08-05-2022 11:20-0400 Diastolic blood pressure 62 mm[Hg] Robyn Kaleb FILLING TECHNICIAN.COPY MESSENGER Work Phone: [facility] 08-05-2022 11:20-0400 Heart rate 84 /min Robyn Kaleb FILLING TECHNICIAN.COPY MESSENGER Work Phone: [facility] 08-05-2022 11:20-0400 SaO2% (BldA) [Mass fraction] 95 % Robyn Kaleb FILLING TECHNICIAN.COPY MESSENGER Work Phone: [facility] 08-05-2022 11:20-0400 Systolic blood pressure 110 mm[Hg] Robyn Kaleb FILLING TECHNICIAN.COPY MESSENGER Work Phone: [facility] 04-09-2022 08:08-0500 Diastolic blood pressure 73 mm[Hg] Hattie Brownlee MD Work Phone: [facility] 04-09-2022 08:08-0500 Heart rate 99 /min Hattie Brownlee MD Work Phone: [facility] 04-09-2022 08:08-0500 Systolic blood pressure 117 mm[Hg] Hattie Brownlee MD Work Phone: [facility] 04-09-2022 08:04-0500 Body height 162.6 cm Hattie Brownlee MD Work Phone: [facility] 04-09-2022 08:04-0500 Body temperature 97.11 [degF] Hattie Brownlee MD Work Phone: [facility] 04-09-2022 08:04-0500 Body weight 82.56 kg Hattie Brownlee MD Work Phone: [facility] Encounters Encounter Date Encounter Type Care Provider Facility Start: 03-24-2023 End: 03-24-2023 ambulatory JOSY ALVARADO Facility:[facility] Start: 03-17-2023 End: 03-18-2023 ambulatory ELVIE GLEZ Facility:[facility] Start: 01-29-2023 ambulatory Elvie desir MD Work Phone: [facility] Procedures Date Procedure Procedure Detail Performing Clinician Start: 10-28-2022 Lipid 1996 panel - S lacie or Plasma Bone Wstr Work Phone: Start: 04-20-2022 Dxa bone density ute dy 1/> sites axial skel Hattie Brownlee MD Work Phone: Start: 03-19-2022 RADHA SCREENING W ELENA Mayra Alvarado MD Work Phone: Start: 03-19-2022 Mammography Mammograph y Coordinator Start: 03-18-2021 Mammography Elvie subramanian MD Work Phone: Start: 11-28-2020 Adult depression screening assessment Elvie Glez MD Work Phone: Start: 05-31-2014 Colonoscopy Elvie subramanian MD Work Phone: Plan of Treatment Date Care Activity Detail Author Start: 12-14-2028 Urine microalbumin profile [facility] Start: 10-29-2027 Lipid 1996 panel - S lacie or Plasma Lipid Screening [facility] Start: 06-18-2027 LIPID SCREEN LIPID SCREEN [facility] Start: 12-10-2026 LIPID SCREEN LIPID SCREEN [facility] Start: 11-20-2025 LIPID SCREEN LIPID SCREEN [facility] Start: 10-28-2025 Diabetes Screening Diabetes Screenin g [facility] Start: 04-09-2025 DIABETES [facility]CREEN [facility] Start: 12-10-2024 DIABETES SCREEN [facility] Start: 05-31-2024 Colonoscopy COLONOSCOPY [facility] Start: 05-31-2024 COLORECTAL CANCER SCREENING COLORECTAL CANCER SCREENING [facility] Start: 01-05-2024 RSV Vaccine (1 - 1-d ose 60+ series) RSV Vaccine (1 - 1-dose 60+ series) [facility] Immunizations Immunization Date Immunization Notes Care Provider Fa ciliadwoa 12-18-2021 influenza, high-dose , quadrivalent vaccine (FLUZONE HIGH DOSE QUADRIVALENT) Mammography Coordinator [facility] Work Phone: 06-18-2021 COVID-19 original vaccine, age 12+ yr, monovalent (PFIZER-BIONTECH - CHAPMAN TOP) Elvie Glez MD Work Phone: [facility] 12-03-2020 COVID-19 vaccine, ag e 12+ yr (PFIZER-BIONTECH - PURPLE TOP) Elvie Glez MD Work Phone: [facility] 12-03-2020 influenza, high-dose , quadrivalent vaccine (FLUZONE HIGH DOSE QUADRIVALENT) Elvie Glez MD Work Phone: [facility] 05-30-2020 COVID-19 original vaccine, age 12+ yr, monovalent (PFIZER-BIONTECH - PURPLE TOP) Elvie Glez MD Work Phone: [facility] 05-08-2020 COVID-19 original vaccine, age 12+ yr, monovalent (PFIZER-BIONTECH - PURPLE TOP) Elvie Glez MD Work Phone: [facility] 12-01-2019 influenza, high-dose , quadrivalent vaccine (FLUZONE HIGH DOSE QUADRIVALENT) Elvie Glez MD Work Phone: [facility] 04-19-2019 zoster vaccine recombinant Elvie Glez MD Work Phone: [facility] 12-14-2018 tetanus toxoid, redu aleida diphtheria toxoid, and acellular pertussis vaccine, adsorbed Elvie Glez MD Work Phone: [facility] 12-14-2018 zoster vaccine recombinant Elvie Glez MD Work Phone: [facility] 11-28-2018 influenza, high dose seasonal, preservative-free Elvie Glez MD Work Phone: [facility] 11-24-2017 influenza, high dose seasonal, preservative-free Elvie Glez MD Work Phone: [facility] 11-20-2016 influenza, high dose seasonal, preservative-free Elvie Glez MD Work Phone: [facility] 11-29-2015 influenza, high dose seasonal, preservative-free Elvie Glez MD Work Phone: [facility] 08-13-2015 pneumococcal polysaccharide vaccine, 23 valent Elvie Glez MD Work Phone: [facility] 12-27-2014 influenza, high dose seasonal, preservative-free Elvie Glez MD Work Phone: [facility] Work Phone: 07-13-2014 pneumococcal conjuga te vaccine, 13 valent Elvie Glez MD Work Phone: [facility] 01-02-2014 influenza, seasonal, injectable Elvie Glez MD Work Phone: [facility] 12-29-2012 influenza virus vaccine, unspecified formulation Elvie Glez MD Work Phone: [facility] 11-25-2012 influenza virus vaccine, unspecified formulation Elvie Glez MD Work Phone: [facility] Work Phone: 11-23-2011 zoster vaccine, live Elvie markham MD Work Phone: [facility] 01-04-2007 influenza virus vaccine, unspecified formulation Elvie Glez MD Work Phone: [facility] Work Phone: 02-01-2006 tetanus and diphther ia toxoids, adsorbed, preservative free, for adult use (2 Lf of tetanus toxoid and 2 Lf of diphtheria toxoid) Elvie Glez MD Work Phone: [facility] 01-18-2006 influenza virus vaccine, unspecified formulation Elvie Glez MD Work Phone: [facility] Work Phone: Payers Date Payer Category Payer Private Health Insurance [id number] 2015 Private Health Insurance [facility] AARP SUPPLEMENT [id number] 2015-Present [phone] [address] [place] [address] Indemnity [id number] 2015 Private Health Insurance [facility] AARP SUPPLEMENT [id number] 2015-Present [phone] [address] [place] [address] Indemnity [id number] 2015 Unknown [id number] 2014 Medicare MEDICARE MEDICAR E A AND B [id number] 2014-Present [phone] [place] [address] Medicare [id number] 2014 Medicare MEDICARE MEDICAR E A AND B [id number] 2014-Present [phone] [place] [address] Medicare [id number] 2014 Medicare [id number] 1950 Unknown [id number] Social History Date Type Detail Facility Start: 10-24-2010 Tobacco smoking stat us [facility] Never smoked tobacco [facility] Start: 03-17-2021 End: 01-04-2023 Alcohol intake Current non-drinker of alcohol (finding) [facility] Start: 11-28-2020 End: 06-24-2022 History SDOH Alcohol Frequency 2 [facility] Start: 11-28-2020 History SDOH Alcohol Std Drinks 98 [facility] Start: 11-28-2020 End: 06-24-2022 History SDOH Alcohol Binge 1 [facility] Start: 11-28-2020 End: 06-24-2022 History SDOH Social Connections Phone 4 [facility] Start: 11-28-2020 End: 06-24-2022 History SDOH Social Connections Christian 3 [facility] Start: 11-28-2020 End: 06-24-2022 History SDOH Financial 5 [facility] Start: 11-27-2019 Education 17 [facility] Start: 1950 Sex Assigned At Not on file [facility] Start: 10-24-2010 Tobacco use and exposure Smoke less tobacco non-user [facility] Start: 12-30-2021 End: 06-24-2022 History SDOH Alcohol Std Drinks 0 [facility] Tobacco smoking status No Smokin g Status Entered [facility] Sex Assigned At Female [facility] Start: 06-24-2022 End: 08-05-2022 History of Social function [facility] Start: 06-24-2022 End: 08-05-2022 Social connection and isolation panel [facility] Do you belong to any clubs or organizations such as baptism groups, unions, fraternal or athletic groups, or school groups? Yes [facility] Are you now , , , , never or living with a partner? [facility] How often to you hav e a drink containing alcohol? Never [facility] How many standard dr inks containing alcohol do you have on a typical day? Patient does not drink [facility] Do you feel stress - tense, restless, nervous, or anxious, or unable to sleep at night because your mind is troubled all the time - these days [OSQ] To some extent [facility] (I/We) worried wheth er (my/our) food would run out before (I/we) got money to buy more. Never true [facility] In the past 12 month s, was there a time when you were not able to pay the mortgage or rent on time? No [facility] Start: 10-24-2020 Sexual orientation Choose not to disclose [facility] Do you feel stress - tense, restless, nervous, or anxious, or unable to sleep at night because your mind is troubled all the time - these days [OSQ] Only a little [facility] Clinical Notes 05-29-2015 to 03-24-2023 Hattie Brownlee MD - 10/15/2022 11:26 AM EDTPatient InstructionsTelephone Encounter - Rima Alvarado LPN - 08/10/2022 1:10 PM EDTTelephone Encounter - Robyn Manuel APRN.CNP - 08/10/2022 1:04 PM EDT Note Date & Type Note Facility 03-24-2023 Note HNO ID: [id number] Author: JOSY ALVARADO MD Service: ? Author Type: Physician Type: Progress Notes Filed: 03/24/2023 14:53 Note Text: Josy is a 72 year old who presents for an annual gynecologic exam without complaints. Endorses some periods of increased warmth with activity/getting dressed in the morning, but none at night. Postmenopausal: Yes since age 42 DOROTHEA/BSO HRT use: Yes, used after DOROTHEA but then stopped after sister had a PE. How lon years. 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 Dysthymic disorder 02/09/2005 Fibromyalgia 03/2012 Hyperlipidemia Migraine without aura, without mention of intractable migraine without mention of status migrainosus 02/09/2005 Myalgia and myositis, unspecified 11/03/2004 low back pain, cervical spondylosis, fibromyalgia Obstructive sleep apnea [facility] Other and unspecified hyperlipidemia 11/03/2004 Other psoriasis 03/13/2008 Dr. Umanzor. Postmenopausal atrophic vaginitis Psoriatic arthritis (HCC) Shingles Snoring Symptomatic menopausal or female climacteric states Unspecified hemorrhoids without mention of complication /internal PAST SURGICAL HISTORY Procedure Laterality Date COLONOSCOPY FLX DX W/COLLJ SPEC WHEN PFRMD 06/13/2004 Colonoscopy COLONOSCOPY FLX DX W/COLLJ SPEC WHEN PFRMD 05/31/2014 Colonoscopy NEUROPLASTY AND/TRANSPOS MEDIAN NRV CARPAL TUNNE Carpal tunnel decomp right NEUROPLASTY AND/TRANSPOS MEDIAN NRV CARPAL TUNNE 01/06/2005 left CTR TONSILLECTOMY PRIMARY/SECONDARY Tonsillectomy TOTAL ABDOMINAL HYSTERECT W/WO RMVL TUBE OVARY 03/08/1992 Hysterectomy, DOROTHEA/bso for endometriosiss TOTAL KNEE REPLACEMENT Right 08/17/2022 Dr. Wellington FAMILY HISTORY Problem Relation Age of Onset Breast Cancer Mother late 60s Heart Mother Heart Father dementia Breast Cancer Sister 43 Mastectomy Oct 2019 Hodgkin Lymphoma Brother in 2011 Lipids Brother other (hodkins lymphoma) Son 27 Breast Cancer Daughter SOCIAL HISTORY Social History Tobacco Use Smoking status: Never Smokeless tobacco: Never Vaping Use Vaping Use: Never used Substance Use Topics Alcohol use: No Drug use: No REVIEW OF SYSTEMS Abdomen: No abdominal pain, nausea, vomiting, diarrhea, or constipation. No bloating, early satiety, indigestion, or increased flatulence. Bladder: No dysuria, gross hematuria, urinary frequency, urinary urgency, or incontinence Breast: No breast lumps, nipple d/c, overlying skin changes, redness or skin retraction Allergies and current medication updated:Yes TEACHING PHYSICIAN NOTE OF PERSONAL INVOLVEMENT IN CARE: I have personally seen and examined the patient and performed the medical decision-making components. I have reviewed the medical student documentation and verified the findings in the note as written. Any additions or changes are noted in bold/italics. Signature: Josy Alvarado Date: 03/24/2023 Time: 2:47 PM EXAM: BP 134/82 Ht 5' 3.5 (1.61m) Wt 185 lb (83.9kg) BMI 32.25 kg/(m2). GENERAL: pleasant, female in no apparent distress HEENT: Normocephalic, atraumatic, mucus membranes moist, and no lesions NECK: Supple, full range of motion, no adenopathy, and thyroid normal DERMATOLOGY: Normal, without lesions, non-icteric, and non-hirsute BREAST: soft, non-tender, symmetric, no dominant mass, normal nipple-areolar complex, no lymphadenopathy, and no nipple discharge PELVIC: external genitalia normal, normal Bartholin's glands, urethra, Alsea's glands, no vulvar lesions, good vaginal support, physiologic discharge present, normal appearing perineal body and perianal region, cervix surgically absent BIMANUAL: no adnexal masses, non-tender, and uterus surgically absent RECTOVAGINAL: deferred. NEURO: alert and oriented x3,exam grossly non-focal EXTREMITIES: normal ASSESSMENT/PLAN: 1) Health maintenance: Pap/HPV screening no longer needed Mammogram ordered Colon cancer screening: up to date with screening 2) Follow up one year or sooner as needed Jsoy Alvarado MD [facility] 03-24-2023 Note HNO ID: [id number] Author: MAGALY PILLAI [employer] Service: ? Author Type: Flat Sorting Machine Clerk Type: Progress Notes Filed: 03/24/2023 13:45 Note Text: Radiology Service Progress Note PATIENT NAME: Josy Jones DATE OF SERVICE: March 24, 2023 TIME: 1:32 PM PATIENT IDENTITY VERIFICATION COMPLETED USING TWO [...] PERIPHERAL IV DATA: Not applicable SIGNED BY: Magaly Pillai [employer] March 24, 2023 1:32 PM [facility] 01-04-2023 Note HNO ID: [id number] Author: Elvie Glez MD Service: ? Author Type: Physician Type: Progress Notes Filed: 01/31/2023 6:04 PM Note Text: This note was created using [employer]. Subjective Josy Jones is a 72 year [...] that knees felt better when was in [place]. Ears feel stuffy. Diarrhea every once in [...] can drop off copy to scan into [employer]. PAST MEDICAL HISTORY Diagnosis Date Adjustment disorder with depressed mood 03/21/2007 [facility]. Dysthymic disorder 02/09/2005 Fibromyalgia 03/2012 Hyperlipidemia Migraine without aura, without mention of intractable migraine without mention of status migrainosus 02/09/2005 Myalgia and myositis, unspecified 11/03/2004 low back pain, cervical spondylosis, fibromyalgia Obstructive sleep apnea [facility] Other and unspecified hyperlipidemia 11/03/2004 [...] 138/68 06/19/2022 141 (more content not included)... [facility] 10-15-2022 Note HNO ID: [id number] Author: Hattie Brownlee MD Service: ? Author Type: Physician Type: Progress Notes Filed: 10/15/2022 11:44 AM Note Text: Rheumatology FOLLOW UP VISIT Date of Service: 10/15/2022 Patient: Josy Jones Medical Record: [id number] Primary Care Physician: Elvie Glez MD Last [...] 01/01/2022. She apparently follows with her local plant technical specialist Dr. Peck and requested second opinion. Review of outside records demonstrates that she was last seen by her plant technical specialist 03/17/2022 for psoriasis, psoriatic arthritis, osteoarthritis, fibromyalgia. [...] diagnosed with psoriatic arthritis by her local plant technical specialist. She was put on methotrexate and was [...] Evaluation Pain Evaluation (more content not included)... [facility] 10-15-2022 History of Present illness Narrative Images from the original note were not included. Rheumatology FOLLOW UP VISIT Date of Service: 10/15/2022 Patient: Josy Jones Medical Record: [id number] Primary Care Physician: Elvie Glez MD Last [...] 01/01/2022. She apparently follows with her local plant technical specialist Dr. Peck and requested second opinion. Review of outside records demonstrates that she was last seen by her plant technical specialist 03/17/2022 for psoriasis, psoriatic arthritis, osteoarthritis, fibromyalgia. [...] diagnosed with psoriatic arthritis by her local plant technical specialist. She was put on methotrexate and was [...] Percentile 7 % 12 % 4 % RAPID 3 Martin Activities of Daily Living 10/12/2022 [...] 10.0: High Severity RAPID-3 Weighed Score 04/06/2022 06/15/2022 10/12/2022 RAPID 3 Weighed Score 4.44 (High Severity [...] place, no significant fluid LABS Reviewed in [facility], notable for: No new relevant labs CBC [...] - CO2 22 - 30 mmol/L 28 CO2, ZACHARY 23.0 - 32.0 mmol/L [...] SM ANTIBODY Negative - Negative - RIBOSOMAL KNURLING MACHINE OPERATOR AB <1.0 AI - <0.2 - RIBOSOMAL KNURLING MACHINE OPERATOR QUAL Negative - Negative - CHROMATIN AB <1.0 AI - <0.2 - CHROMATIN AB QUAL Negative - Negative - SSA ANTIBODY QUAL Negative - Negative Negative ANTI-SSA <1.0 AI - <0.2 <0.2 ANTI-SSB <1.0 AI - <0.2 <0.2 ANTI-SSB QUAL Negative - Negative - KNURLING MACHINE OPERATOR ANTIBODY QUAL Negative - Negative - SCL-70 [...] PCP. Again recommend not adding on multiple RN PERITONEAL DIALYSIS depressants at nighttime including gabapentin and trazodone [...] continue with Cymbalta per PCP 6. Continue [id number] vitamin D and calcium for osteopenia, repeat DEXA 04/2024 7. Follow-up 6 months rheumatology Orders this visit: Office Visit on 10/15/22 CONSULT TO SLEEP MEDICINE - ADULT CON[facility] [facility] Return in about 6 months (around 04/17/2023). I spent a total of 36 minutes on the date of the service which included preparing to see the patient, [id number] patient care, completing clinical documentation, obtaining and/or reviewing separately obtained history, performing a medically appropriate examination, counseling and educating the patient/family/caregiver, and ordering medications, tests, or procedures. This note was partially generated with the assistance of [employer] voice recognition software. An attempt was made to correct any dictation errors however there may be some incorrect words, spellings, and punctuation. ___ Hattie Brownlee MD Rheumatology Date: October 15, 2022 Time: 11:30 AM documented in this encounter [facility] 10-15-2022 Instructions Hattie Brownlee MD - [...] up 6 months documented in this encounter [facility] 08-10-2022 Miscellaneous Notes Completed forms faxed as requested. Reviewed, forms completed, please send with office note to Zachary Bowen. Thanks! Labs and EKG on Robyn Manuel desk for review. Records release faxed to [facility] requesting labs and EKG. Have we seen a fax for her labs and EKG from [facility]? Madelaine- Zachary Bowen, asking if provider filled out the pre op clearance form, they faxed over on 07-31? Advised clearance was pending lab/ekg results. Madelaine reports the labs were done at [facility] and she will fax those to provider along with another clearance form. She will call patient to see if an ekg was done. documented in this encounter [facility] 08-05-2022 Note HNO ID: [id number] Author: Robyn Manuel APRN.JYOTHI Service: ? Author [...] done on 08/17/[address] Wellington with [facility]. History of having anesthesia: Yes. Any reaction from anesthesia in the past: No. Personal or family history of heart disease: No. Chronic diseases controlled: Yes. Currently taking a blood thinner: Yes: aspirin, knows when to stop this. Patient denies chest pain, SOB, dizziness, palpitations, one sided weakness, dropping of face or mouth, fever, or recent sickness. No history of CVA or ID. Labs, EKG to be obtained. Prior ECHO [...] Disorder With Depressed Mood - 03/21/2007 Comment: [facility]. Transient Disorder of Initiating Or [...] Cervical back: Norm (more content not included)... [facility] 08-05-2022 History of Present illness Narrative SUBJECTIVE [...] done on 08/17/[address] Wellington with [facility]. History of having anesthesia: Yes. Any reaction from anesthesia in the past: No. Personal or family history of heart disease: No. Chronic diseases controlled: Yes. Currently taking a blood thinner: Yes: aspirin, knows when to stop this. Patient denies chest pain, SOB, dizziness, palpitations, one sided weakness, dropping of face or mouth, fever, or recent sickness. No history of CVA or ID. Labs, EKG to be obtained. Prior ECHO [...] Disorder With Depressed Mood - 03/21/2007 Comment: [facility]. Transient Disorder of Initiating Or [...] done on 08/17/[address] Wellington with [facility]. 2. Osteoarthritis of right knee, unspecified [...] for Keep next scheduled appointment.. Robyn Manuel APRN-JYOTHI documented in this encounter [facility] 06-26-2022 Note HNO ID: [id number] Author: Elvie Glez MD Service: ? Author Type: Physician Type: Progress Notes Filed: 07/27/2022 12:34 AM Note Text: This note was created using [employer]ies [employer]. Subjective Josy Jones is a 72 year old female. Patient presents with: F/U 3 Month SUBJECTIVE: Josy Jones is a 72 year old year old lady here today for 3 month follow up and BP recheck appointment for review of medical conditions. Pleased with care from plant technical specialist. Treating psoriatic arthritis, Reviewed test done for hands. Tapering off the MTX and then will done in a couple weekends. Substernal chest pain episode noted. No other ,sx concerning for angina. Resolved after a few hours. Had appointment that day with plant technical specialist. BP at home 110s over 50s. Noted [...] have helped. Consider TKRs. Has been to [facility]. Noted some heartburn issues. Depression Screening [...] Date Adjustment disorder with depressed mood 03/21/2007 [facility]. Dysthymic disorder 02/09/2005 Fibromyalgia 03/2012 Hyperlipidemia Migraine without aura, without mention of intractable migraine without mention of status migrainosus 02/09/2005 Myalgia and myositis, unspecified 11/03/2004 low back pain, cervical spondylosis, fibromyalgia Obstructive sleep apnea [facility] Other and unspecified hyperlipidemia 11/03/2004 [...] 106 117 Cholest (more content not included)... [facility] 06-19-2022 Note HNO ID: [id number] Author: Hattie Brownlee MD Service: ? Author Type: Physician Type: Progress Notes Filed: 06/19/2022 3:49 PM Note Text: Rheumatology FOLLOW UP VISIT Date of Service: 06/19/2022 Patient: Josy Jones Medical Record: [id number] Primary Care Physician: Elvie Glez MD Last [...] as needed Duloxetine 60 mg Work-up: 04/09/2022: ANE 1: 160 with homogenous Negative BIMAL Vitamin [...] 01/01/2022. She apparently follows with her local plant technical specialist Dr. Peck and requested second opinion. Review of outside records demonstrates that she was last seen by her plant technical specialist 03/17/2022 for psoriasis, psoriatic arthritis, osteoarthritis, fibromyalgia. [...] diagnosed with psoriatic arthritis by her local plant technical specialist. She was put on methotrexate and was [...] her nose from (more content not included)... [facility] 04-24-2022 Miscellaneous Notes PT scheduled for MSK US on 05/19/22 at 3:45 pm at [facility]. Pt called back at 1:45, please give [...] Slot held: N/A documented in this encounter [facility] 04-20-2022 Note HNO ID: [id number] Author: RT Moiz(R) Service: ? Author Type: [...] RT Moiz(R) April 20, 2022 3:39 PM [facility] 04-20-2022 History of Present illness Narrative Radiology [...] 2022 3:39 PM documented in this encounter [facility] 04-09-2022 Note HNO ID: [id number] Author: Hattie Brownlee MD Service: ? Author Type: Physician Type: Progress Notes Filed: 04/09/2022 8:16 PM Note Text: Rheumatology CONSULTATION Date of Service: 04/09/2022 Patient: Josy Jones Medical Record: [id number] Primary Care Physician: Elvie Glez MD Last Rheumatology visit: None at [facility] Referring Provider: Jacklyn Vincent [address] [facility] [id number] Chief Complaint: Patient presents with: New Patient Psoriatic Arthritis Osteoarthritis Osteopenia Josy Jones is here today at request of Dr. Vincent specifically for consultation of my opinion in regards to the chief complaint listed above. Correspondence will be shared today via the [employer] electronic health record or through regular mail, where applicable. HISTORY OF PRESENT ILLNESS Josy Jones is a 71 year old White female with a history of hypercholesterolemia, migraine, psoriasis, mood disorder, scoliosis, YAMILE on CPAP, restless legs who presents rheumatology clinic for second opinion. Chart review reveals she was evaluated by VERONICA Vincent 01/01/2022. She apparently follows with her local plant technical specialist Dr. Peck and requested second opinion. Review of outside records demonstrates that she was last seen by her plant technical specialist 03/17/2022 for psoriasis, psoriatic arthritis, osteoarthritis, fibromyalgia. [...] diagnosed with psoriatic arthritis by her local plant technical specialist. She was put on methotrexate and was [...] Negative for: Feve (more content not included)... [facility] 04-09-2022 History of Present illness Narrative Images from the original note were not included. Rheumatology CONSULTATION Date of Service: 04/09/2022 Patient: Josy Jones Medical Record: [id number] Primary Care Physician: Elvie Glez MD Last Rheumatology visit: None at [facility] Referring Provider: Jacklyn Vincent [address] [facility] [id number] Chief Complaint: Patient presents with: New Patient Psoriatic Arthritis Osteoarthritis Osteopenia Josy Jones is here today at request of Dr. Vincent specifically for consultation of my opinion in regards to the chief complaint listed above. Correspondence will be shared today via the [employer] electronic health record or through regular mail, where applicable. HISTORY OF PRESENT ILLNESS Josy Jones is a 71 year old White female with a history of hypercholesterolemia, migraine, psoriasis, mood disorder, scoliosis, YAMILE on CPAP, restless legs who presents rheumatology clinic for second opinion. Chart review reveals she was evaluated by VERONICA Vincent 01/01/2022. She apparently follows with her local plant technical specialist Dr. Peck and requested second opinion. Review of outside records demonstrates that she was last seen by her plant technical specialist 03/17/2022 for psoriasis, psoriatic arthritis, osteoarthritis, fibromyalgia. [...] diagnosed with psoriatic arthritis by her local plant technical specialist. She was put on methotrexate and was [...] Date Adjustment disorder with depressed mood 03/21/2007 [facility]. Dysthymic disorder 02/09/2005 Fibromyalgia 03/2012 Hyperlipidemia Migraine without aura, without mention of intractable migraine without mention of status migrainosus 02/09/2005 Myalgia and myositis, unspecified 11/03/2004 low back pain, cervical spondylosis, fibromyalgia Obstructive sleep apnea [facility] Other and unspecified hyperlipidemia 11/03/2004 [...] 4 Total Swollen 0 LABS Reviewed in [facility], notable for: Pending from today CBC Latest [...] - CO2 22 - 30 mmol/L 28 CO2, ZACHARY 23.0 - 32.0 mmol/L [...] 9.8 10.0 AST 13 - 35 U/L AST, ZACHARY 7 - 40 U/L - [...] mg/mg - - 0.09 IMAGING Reviewed in [facility], notable for: Outside x-rays left knee 12/2020: [...] which included preparing to see the patient, [id number] patient care, completing clinical documentation, obtaining and/or reviewing separately obtained history, performing a medically appropriate examination, counseling and educating the patient/family/caregiver, and ordering medications, tests, or procedures. This note was partially generated with the assistance of [employer] voice recognition software. An attempt was made to correct any dictation errors however there may be some incorrect words, spellings, and punctuation. ___ Hattie Brownlee MD Rheumatology Date: April 09, 2022 Time: 8:56 AM documented in this encounter [facility] 04-09-2022 Instructions Hattie Brownlee MD - [...] usual activities immediately. documented in this encounter [facility] 03-19-2022 Miscellaneous Notes March 19, 2022 PID: [id number] Josy Jones [address] [place] [address] Dear Ms. Jones, We are pleased to [...] report will be kept on file at [facility] as part of your permanent medical record and are available for your continuing care. Thank you for allowing us to help in meeting your health care needs. Sincerely, Dr. Allan Interpreting Radiologist [facility] (Normal over 40) documented in this encounter [facility] 03-19-2022 History of Present illness Narrative Radiology [...] 2022 11:22 AM documented in this encounter [facility] 12-10-2021 Miscellaneous Notes Addended by: BOYD WHITE on: 12/10/2021 11:58 AM Modules accepted: Orders See requested labs ordered as requested Boyd White DO Patient in [facility] for labs, Dr. Glez ordered CBC, CMP and lipid on 10/09 which yesterday. Asking if these can be ordered so she can do today documented in this encounter [facility] 12-08-2021 Miscellaneous Notes Orders in chart documented in this encounter [facility] 10-08-2021 Miscellaneous Notes Patient has appointment 12/05 and needs lab orders, requested a month ago.. please advise documented in this encounter [facility] documented as of this encounter (statuses as of 10/09/2021) [facility] History of Past illness Narrative* Problem [...] of this encounter (statuses as of 12/08/2021) [facility] History of Past illness Narrative* Problem [...] of this encounter (statuses as of 12/10/2021) [facility] History of Past illness Narrative* Problem [...] of this encounter (statuses as of 03/21/2022) [facility] History of Past illness Narrative* Problem [...] of this encounter (statuses as of 03/27/2022) [facility] History of Past illness Narrative* Problem [...] of this encounter (statuses as of 04/10/2022) [facility] History of Past illness Narrative* Problem [...] of this encounter (statuses as of 04/24/2022) [facility] History of Past illness Narrative* Problem [...] of this encounter (statuses as of 07/22/2022) [facility] History of Past illness Narrative* Problem [...] of this encounter (statuses as of 08/05/2022) [facility] of Past illness Narrative* Problem [...] of this encounter (statuses as of 08/10/2022) [facility] of Past illness Narrative* Problem [...] of this encounter (statuses as of 10/15/2022) [facility] of Past illness Narrative* Problem [...] of this encounter (statuses as of 01/10/2023) [facility] of Past illness Narrative* Problem [...] of this encounter (statuses as of 01/10/2023) [facility] of Past illness Narrative* Problem [...] of this encounter (statuses as of 02/01/2023) [facility] No data available for this section [facility] Evaluation note* Diagnosis Hypercholesterolemia- Primary Pure hypercholesterolemia Adjustment disorder with depressed mood documented in this encounter [facility] note* Diagnosis Hypercholesterolemia- Primary Pure hypercholesterolemia Psoriatic arthritis (HCC) Psoriatic arthropathy documented in this encounter [facility] note* Diagnosis Psoriatic arthritis (HCC)- Primary Psoriatic arthropathy Fibromyalgia Mylagia and myositis, unspecified Osteopenia, unspecified location Psoriasis Other psoriasis Sicca syndrome (HCC) Sicca syndrome Other osteoporosis without current pathological fracture Disorder of bone, unspecified Encounter for screening for osteoporosis Special screening for osteoporosis documented in this encounter [facility] note* Diagnosis Chronic pain of right knee- Primary Osteoarthritis of right knee, unspecified osteoarthritis type Pre-op exam Preoperative examination, unspecified Obesity, Class I, BMI 30-34.9 Obesity, unspecified Fibromyalgia Mylagia and myositis, unspecified Hypercholesterolemia Pure hypercholesterolemia YAMILE (obstructive sleep apnea) Obstructive sleep apnea (adult) (pediatric) documented in this encounter [facility] note* Diagnosis Psoriatic arthritis (HCC)- Primary Psoriatic arthropathy Fibromyalgia Mylagia and myositis, unspecified Other insomnia documented in this encounter [facility] note* Diagnosis Encounter for screening mammogram for breast cancer documented in this encounter [facility] note* Diagnosis Psoriatic arthritis (HCC) Psoriatic arthropathy Sicca syndrome (HCC) Sicca syndrome Other osteoporosis without current pathological fracture documented in this encounter [facility] Discharge instructions No data available for this section [facility] Progress note No data available for this section [facility] Reason for referral (narrative)* Diagnostic Procedure Only (Routine) - Closed Specialty Diagnoses / Procedures Referred By Contac t Referred To Contact XR IMAGING Diagnoses Psoriatic arthritis (HCC) Sicca syndrome (HCC) Procedures XR HAND GENERAL 3V PA/LAT/OBL BILATERAL RADEX HAND MINIMUM [address] [place] [address] [place] [address] Xr Imaging Referral ID Status Reason Start Date Expiration Date V isits Requested Visits Authorized [id number] Closed Auto-Generate d Referral 04/09/2022 05/09/2023 1 1 * Diagnostic Procedure Only (Routine) - Pending Review Specialty Diagnoses / Procedures Referred By Angela lopez Referred To Contact US IMAGING Diagnoses Psoriatic arthritis (HCC) Sicca syndrome (HCC) Procedures US HAND/WRIST SYNOVIAL SCREEN LT US COMPL JOINT R-T W/[place] [address] [place] [address] Us Imaging Referral ID Status Reason Start Date Expiration Date Visits Requested Visits Authorized [id number] Pending Review Auto-Generat ed Referral 04/09/2022 05/09/2023 1 1 * Diagnostic Procedure Only (Routine) - Pending Review Specialty Diagnoses / Procedures Referred By Angela lopez Referred To Contact US IMAGING Diagnoses Psoriatic arthritis (HCC) Sicca syndrome (HCC) Procedures US HAND/WRIST SYNOVIAL SCREEN RT US COMPL JOINT R-T W/[place] [address] [place] [address] Us Imaging Referral ID Status Reason Start Date Expiration Date Visits Requested Visits Authorized [id number] Pending Review Auto-Generat ed Referral 04/09/2022 05/09/2023 1 1 [facility] for referral (narrative)* Diagnostic Procedure Only (Routine) - Closed Specialty Diagnoses / Procedures Referred By Angela lopez Referred To Contact BR IMAGING Diagnoses Encounter for screening mammogram for breast cancer Procedures RADHA SCREENING W ELENA SCREENING BREAST DGTL ELENA UNI/BILAT ADD ON SCREENING MAMMOGRAPHY BI 2-VIEW BREAST INC CAD Josy Alvarado MD [address] [place] [address] [facility] [address] [place] [address] Referral ID Status Reason Start Date Expiration Date V isits Requested Visits Authorized [id number] Closed Auto-Generate d Referral 03/17/2021 04/16/2022 1 1 [facility] for visit Narrative* Diagnostic Procedure Only (Routine) - Closed Specialty Diagnoses / Procedures Referred By Angela lopez Referred To Contact BR IMAGING Diagnoses Encounter for screening mammogram for breast cancer Procedures RADHA SCREENING W ELENA SCREENING BREAST DGTL ELENA UNI/BILAT ADD ON SCREENING MAMMOGRAPHY BI 2-VIEW BREAST INC CAD Josy Alvarado MD [address] [place] [address] [facility] [address] [place] [address] Referral ID Status Reason Start Date Expiration Date V isits Requested Visits Authorized [id number] Closed Auto-Generate d Referral 03/17/2021 04/16/2022 1 1 [facility] Summary Purpose Family History No Family History Records FoundNo Family History Records Found Advance Directives No Advanced Directives Records FoundNo Advanced Directives Records Found Reason for Referral Specialty Diagnoses / Procedures Referred By Angela lopez Referred To Contact Diagnoses Other insomnia Procedures CONSULT TO SLEEP MEDICINE - ADULT OFFICE/OUTPATIENT [facility] 60-[place] [address] [place] [address] Referral ID Status Reason Start Date Expiration Date Visits Requested Visits Authorized [id number] Authorized PCP Requested Referral 10/15/2022 10/15/2023 1 1 Additional Source Comments Source Comments (unrecognize d section and content) In the event this informatio n is protected by the Federal Confidentiality of Alcohol and Drug Abuse Patient Records regulations: The Federal rules restrict any use of the information to criminally investigate or prosecute any alcohol or drug abuse patient.[facility] the event this information is protected by the Federal Confidentiality of Alcohol and Drug Abuse Patient Records regulations: The Federal rules restrict any use of the information to criminally investigate or prosecute any alcohol or drug abuse patient.[facility] the event this information is protected by the Federal Confidentiality of Alcohol and Drug Abuse Patient Records regulations: The Federal rules restrict any use of the information to criminally investigate or prosecute any alcohol or drug abuse patient.[facility] the event this information is protected by the Federal Confidentiality of Alcohol and Drug Abuse Patient Records regulations: The Federal rules restrict any use of the information to criminally investigate or prosecute any alcohol or drug abuse patient.[facility] the event this information is protected by the Federal Confidentiality of Alcohol and Drug Abuse Patient Records regulations: The Federal rules restrict any use of the information to criminally investigate or prosecute any alcohol or drug abuse patient.[facility] the event this information is protected by the Federal Confidentiality of Alcohol and Drug Abuse Patient Records regulations: The Federal rules restrict any use of the information to criminally investigate or prosecute any alcohol or drug abuse patient.[facility] the event this information is protected by the Federal Confidentiality of Alcohol and Drug Abuse Patient Records regulations: The Federal rules restrict any use of the information to criminally investigate or prosecute any alcohol or drug abuse patient.[facility] the event this information is protected by the Federal Confidentiality of Alcohol and Drug Abuse Patient Records regulations: The Federal rules restrict any use of the information to criminally investigate or prosecute any alcohol or drug abuse patient.[facility] the event this information is protected by the Federal Confidentiality of Alcohol and Drug Abuse Patient Records regulations: The Federal rules restrict any use of the information to criminally investigate or prosecute any alcohol or drug abuse patient.[facility] the event this information is protected by the Federal Confidentiality of Alcohol and Drug Abuse Patient Records regulations: The Federal rules restrict any use of the information to criminally investigate or prosecute any alcohol or drug abuse patient.[facility] the event this information is protected by the Federal Confidentiality of Alcohol and Drug Abuse Patient Records regulations: The Federal rules restrict any use of the information to criminally investigate or prosecute any alcohol or drug abuse patient.[facility] the event this information is protected by the Federal Confidentiality of Alcohol and Drug Abuse Patient Records regulations: The Federal rules restrict any use of the information to criminally investigate or prosecute any alcohol or drug abuse patient.[facility] the event this information is protected by the Federal Confidentiality of Alcohol and Drug Abuse Patient Records regulations: The Federal rules restrict any use of the information to criminally investigate or prosecute any alcohol or drug abuse patient.[facility] the event this information is protected by the Federal Confidentiality of Alcohol and Drug Abuse Patient Records regulations: The Federal rules restrict any use of the information to criminally investigate or prosecute any alcohol or drug abuse patient.[facility] Care Teams (unrecognized sec tion and content) Balance Truer Relationship Specialty Start Date End Date Elvie Glez MD [address] [place] [id number] PCP - General 04/02/09 Balance Truer Relationship Specialty Start Date End Date Elvie Glez MD [address] [place] [id number] PCP - General 04/02/09 Balance Truer Relationship Specialty Start Date End Date Elvie Glez MD [address] [place] [address] [place] [address] PCP - General 04/02/09 Balance Truer Relationship Specialty Start Date End Date Elvie Glez MD [address] [place] [id number] PCP - General 04/02/09 Balance Truer Relationship Specialty Start Date End Date Elvie Glez MD [address] [place] [id number] PCP - General 04/02/09 Balance Truer Relationship Specialty Start Date End Date Elvie Glez MD [address] [place] [id number] PCP - General 04/02/09 Balance Truer Relationship Specialty Start Date End Date Elvie Glez MD [address] [place], [place] [id number] PCP - General 04/02/09 Balance Truer Relationship Specialty Start Date End Date Elvie Glez MD [address] [place], [place] [id number] PCP - General 04/02/09 Balance Truer Relationship Specialty Start Date End Date Elvie Glez MD [address] [place], [place] [id number] PCP - General 04/02/09 Balance Truer Relationship Specialty Start Date End Date Elvie Glez MD [address] [place], [place] [id number] PCP - General 04/02/09 Balance Truer Relationship Specialty Start Date End Date Elvie Glez MD [address] [place], [place] [id number] PCP - General 04/02/09 Reason for Visit (unrecogniz ed section and content) Reason Comments New Patient Psoriatic Arthritis Osteoarthritis Osteopenia Specialty Diagnoses / Procedures Referred By Angela lopez Referred To Contact Rheumatology Diagnoses Psoriatic arthritis (HCC) Fibromyalgia Procedures CONSULT TO RHEUM/IMMUN DISEASE OFFICE/OUTPATIENT [facility] 60-74 MINUTES Jacklyn Vincent APRN.RN PERITONEAL DIALYSIS [address] [place] [address] Referral ID Status Reason Start Date Expiration Date V isits Requested Visits Authorized [id number] Closed PCP Requested Referral 01/01/2022 01/01/2023 1 1 Reason Comments Appointment Reason Comments Pre-Op Exam needs lab and EKGhav e right knee arthroplasty with Dr. Wellington Reason Comments Pre op clearance form/labs/ekg Reason Comments Established Patient INFORMATION SOURCE (unrecogn ized section and content) DATE CREATED AUTHOR AUTHOR'S NIMA FELIPE 03/27/2023 [facility] FOR RECORDS PERTAINING TO PATIENTS WHO ARE [...] BE BASED ON THE PRIMARY CLINICAL RECORDS. [facility]. provides no warranty or guarantee of the accuracy or completeness of information in this document.
[2023-04-01 15:29] LABS: Absolute Lymphocyte Count 1.45 X10^3/uL (0.83-4.51); Absolute Neutrophil Count 3.1 X10^3/uL (2.0-7.7); Basophil# 0.03 X10^3/uL; Basophil% 0.6 % (0-1); Eosinophil# 0.12 X10^3/uL; Eosinophils% 2.3 % (0-5); Hematocrit 37.9 % (37-47); Hemoglobin 12.3 g/dL (12.0-15.0); Lymphocyte # 1.45 X10^3/ul (0.83-4.51); Lymphocyte % 27.9 % (19-41); Mean Corp Hgb Conc 32.5 g/dL (32-36); Mean Corpuscular Hgb 31.5 pg (27.0-32.0); Mean Corpuscular Volume 97.2 fL (81-99); Mean Platelet Vol. 9.7 fl (6.2-12.0); Monocyte# 0.52 X10^3/uL; NRBC Flagged by Analyzer 0 % (0-5); Neutrophil # 3.06 X10^3/uL (2.7-7.7); Neutrophil % 58.8 % (47-70); Platelet Count 272 K/mm3 (150-450); RBC Distribution Width CV 12.9 % (11.6-14.6); RBC Distribution Width SD 45.7 fl (35.1-43.9); White Blood Count 5.2 K/mm3 (4.4-11.0)
[2023-04-01 16:28] LABS: Anion Gap 5 (5-15); BUN 15 mg/dL (7-18); BUN/Creat Ratio 18.3 RATIO (10-20); Calcium,Total 9.6 mg/dL (8.5-10.1); Chloride 107 mmol/L (98-107); Creatinine, Serum 0.82 mg/dL (0.55-1.02); EST Glomerular Filtration Rate 72 mL/min (>60); Est Glom Filt Rate - Afr Amer 88 mL/min (>60); Glucose 109 mg/dL (74-106); Hemoglobin A1c 5.3 % (3.8-5.6); Potassium 4.3 mmol/L (3.5-5.1); Sodium Level 141 mmol/L (136-145)
== END | disposition home or self-care (01) ==
LOC: MTLAB 13:00
PROVIDERS: PCP Internal Medicine; Referring Provider Orthopaedic Surgery; Visit Provider Orthopaedic Surgery
DX: Z01.812 Encounter for preprocedural laboratory examination (principal)
CPT/HCPCS: 36415; 80048; 83036; 85025

== ENCOUNTER → 2023-04-28 | Outpatient (CLI) | payer MEDICARE, OTHER, SELFPAY ==
--- NOTE | 2023-04-28 | KNEE_PTH ---
PATHOLOGY RESULTS PATIENT: JOSY HOPPER [facility] U#:[id number] AGE/SX: 73/F ROOM: RE04/28/[address]: Dr. Eloy Wellington DO : 1950 BED: DIS: 04/28/2023 SPEC #: [id number] RECD: 04/29/23 07:12 STATUS: KENDRICK RENorberto #: [id number] DEANNA: 04/28/23 00:[address]: Eloy Wellington DEPT: SURGICAL PATHOLOGY RECD BY: Sally Rivera ENTERED: 04/29/23 07:12 SP TYPE: TOTAL KNEE OTHR DR: Dr. Roselia Glez MD [facility] Tissues: Knee, NOS Procedures: Decalcification bone/plaque Surgery Specimen Level IV HEADER OPERATION: Left robotic assisted total knee arthroplasty PRE-OP DIAGNOSIS: Unilateral primary osteoarthritis TISSUE SUBMITTED: Left knee bone and soft tissue MICROSCOPIC DIAGNOSIS Bone and tissue of left knee, total knee resection: Severe degenerative joint disease. Mild synovial hyperplasia. AM:simon 05/03/2023 MICROSCOPIC DESCRIPTION Slides are reviewed. GROSS DESCRIPTION Received is one container designated bone and soft tissue left knee. The specimen consists of multiple fragments of buchanan-yellow bone measuring in aggregate 10.0 x 8.5 x 3.0 cm. Also in the specimen container are multiple fragments of yellow-white soft tissue measuring in aggregate 9.5 x 7.0 x 2.5 cm. A number of bony fragments contain articular surfaces consistent with tibial plateau and femoral condyle and displaying prominent osteophyte formation, eburnation and bone erosion. Student [employer]ist sections are submitted in two cassettes as follows: 1 - soft tissue, 2 - bone after decalcification. / SJ:simon 04/29/2023 TC:5 [facility]: [id number], [id number]
== END | disposition home or self-care (01) ==
PROVIDERS: PCP Internal Medicine; Referring Provider Orthopaedic Surgery; Visit Provider Orthopaedic Surgery
DX: M17.12 Unilateral primary osteoarthritis, left knee (principal)
CPT/HCPCS: 88305; 88311

== ENCOUNTER 2023-10-06 10:30 | Outpatient (RCR) | payer MEDICARE, OTHER, SELFPAY ==
--- NOTE | 2023-09-13 18:27 | HP.PTEVAL_ITS ---
Patient's Visit Information Visit Information Visit Information: JOSY HOPPER is a 73 year old F referred to Physical Therapy by AISHA Gutierrez with a diagnosis of fibromyalgia, psoriatic arthritis. Date of Evaluation: 09/13/23 Physical Therapist: Vasyl Vick DPT Visit Plan Frequency: 2x /Week Duration: 6 Weeks Plan: Start with DN and manual of cervical spine. Cervical ROM, progress retr action of cervical and core stability exercises. Subjective Subjective: Pt. is here today for her initial evaluation with diagnosis of fibromyalgia, psoriatic arthritis. Pt. reports having fibromyalgia for a number of years effecting her neck and legs mostly. She had a previous tailbone injury in early adult molina, but reports since her recent knee replacement she has noticed it more. She is also having B UT and cervical spine pain, tightness. Pt. reports being active with exercises both for her LEs and UE strengthening. Pt. also does some cervical spine stretching as well. No N/T noted. Pt. reports increased pain in her neck with rotation mostly. She reports a constant tightness in her neck. She thinks that her tailbone issues has been increased after her B knee replacement and walking differently. pt. is hopeful to reduce symptoms in order to get back to all recreational activities and ADLs without limitations. Pain Bilateral UT: Pain Intensity (Out of 10): 3 Pain Intensity Range: 1 and 6 L knee: Pain Intensity (Out of 10): 2 Pain Intensity Range: 0 and 4 Tailbone: Pain Intensity (Out of 10): 2 Pain Intensity Range: 1 and 5 Objective Objective: POSTURE: Pt. has slight FH posture. Pt. is able to correct, but reports increased tightness. PALPATION: Pt. has tenderness along her B UT, marked muscle tone in this region as well. Pt. has some tenderness in her tailbone as well. NEURO: Normal throughout. ROM: CERVICAL SPINE: flexion min loss (tight), ext min loss NE, rotation R mod loss increase NW, rotation L min loss NE, SB min loss bilat increase NW. Pt. has full B shoulder ROM without increase in symptoms. LUMBAR SPINE: flexion nil loss NE, ext mod increase NW, SB min loss bilat NE, rotation min loss bilat NE. MMT: Pt. has good BLE strength without issues (5/5 throughout). B UE 5/5 throughout without increase in symptoms. Core strength- flexion poor, ext fair-. difficulty with TA control. GAIT: normal. I did not see any abnormalities with gait this date. STAIRS: normal Special Tests C/S Radiculapathy - Left Upper limb tension test: Negative C/S Radiculapathy - Right Upper limb tension test: Negative C/S Radiculapathy - Left Spurlings: Negative C/S Radiculapathy - Right Spurlings: Negative C/S Radiculapathy - Left Cervical distraction: Negative C/S Radiculapathy - Right Cervical distraction: Negative C/S Radiculapathy - Left Relief test: Negative L/S Slump test left side: Negative L/S Slump test right side: Negative L/S Left Straight Leg Raise: Negative L/S Right Straight Leg Raise: Negative Balance/Special Test Scores Lower Extremity Functional Score: 37 Goals Goal 1:: LTG: Pt. to be I with HEP for neck stretching and core strengthening. Goal Time Frame: 4-6 Weeks Goal 2:: STG: Pt. to have increased cervical and lumbar ROM to full without increase in symptoms. Goal Time Frame: 2-4 Weeks Goal 3:: LTG: Pt. to have increased core strength to fair to reduce stress applied to lumbar spine. Goal Time Frame: 4-6 Weeks Goal 4:: LTG: Pt. have decreased cervical spine to 0-2/10 pain with all ADLs. Goal Time Frame: 4-6 Weeks Goal 5:: LTG: Pt. to have decreased tailbone pain to 0-2/10 pain with all walking and ADLs. Goal Time Frame: 4-6 Weeks Rehabilitation Potential Physical Therapy Diagnosis: Pt. has signs and symptoms consistent with fibromyalgia, psoriatic arthritis with subsequent neck and back pain. Pt. has marked muscle tightness in B UT resulting in decreased cervical ROM, she also has some marked core weakness most which is most likely causing her lower lumbar ROM with her functional mobility. She would benefit from PT to address the above limitations progressing back to all recreational and household activities as tolerated. Rehabilitation Potential: Good Anticipated Interventions Patient/Client Instruction: Educate patient on: Condition, Plan of Care, Risk Factors and Benefits of Fitness Program For the Purpose of:: To improve decision making, To facilitate caregiver knowledge, To improve self management, To prevent re-injury, To improve ability to perform tasks related to life management and To improve tolerance to ADL's Therapeutic Exercise to Include: Strength training, Power training, Body mechanics, Postural training, Flexibilty training, Passive ROM, Active ROM, Dalia Exercises and Scapular Strength/Stabilization For the Purpose of:: To decrease pain, To increase ROM, To improve nutrient delivery to tissue, To increase oxygenation perfusion, To improve muscle performance and motor function, To improve ability to perform ADL's, To increase tolerance to activity/condition/position, To improve performance and independence with ADL's, To decrease soft tissue restriction and To increase flexibility/ROM Manual Therapy Techniques to Include: Mobilization, Passive ROM, Functional dry needling and Soft tissue mobilization For the Purpose of:: To decrease pain, To increase ROM, To improve nutrient delivery to tissue, To increase oxygenation perfusion and To improve muscle performance and motor function Text: Thank you for the opportunity to evaluate your patient. For Medicare and Medicare HMO plans, please review the plan of care and approve it. It will need to be FAXED BACK to us at [phone] for Medicare purposes. For Medicare only, by signing this I certify the plan of care. Please let me know if there are questions or concerns regarding this plan of care. Physician Signature: Date:
== END 2023-10-06 19:00 | disposition home or self-care (01) ==
LOC: PT 10:30
PROVIDERS: PCP Internal Medicine; Referring Provider Internal Medicine; Visit Provider Internal Medicine
DX: M79.7 Fibromyalgia (principal); L40.50 Arthropathic psoriasis, unspecified
CPT/HCPCS: 97110; 97161

== ENCOUNTER 2024-08-30 13:30 | Outpatient (RCR) | payer MEDICARE, OTHER, SELFPAY ==
--- NOTE | 2024-12-04 11:53 | HP.PTEVAL ---
Patient's Visit Information Visit Information Visit Information: JOSY HOPPER is a 74 year old F referred to Physical Therapy by AISHA Gutierrez with a diagnosis of Lumbar stenosis. Date of Evaluation: 07/27/24 Physical Therapist: Vasyl Vick DPT Visit Plan Frequency: 2x /Week Duration: 6 Weeks Plan: Neutral spine core strengthening progressing as toleratd DN as needed for lumbar muscle tension/pain. Subjective Subjective: Pt. is here today for her initial evaluation with diagnosis spinal stenosis. Pt. reports having pain for some time. Pt. reports increased pain with standing and walking. No numbness or tingling noted. Pt. has been doing some gym exercises, but not much core strengthening. No myotomal weakness noted. Pt. reports no balance issues or falls. She is sleeping well. Most of her issues are in standing positions. Pt. has been doing some gym exercises, but not much change. She has had some success this past with DN. Pt. is hopeful to reduce symptoms in order to get back to gym exercises and recreational walking without issues. Pain lumbar spine: Pain Intensity (Out of 10): 3 Pain Intensity Range: 0 and 4 Objective Objective: POSTURE: Pt. has slight flexed posture with slight PPT. PALPATION: Pt. has tenderness with spring testing throughout. Pt. has marked hypomobility as well. NEURO: normal throughout. ROM: Lumbar spine: fleixon min loss Ne, ext mod loss increase NW, SB min/nil loss NE, rotation min loss throughout. Pt. has mild increase NW with extension. Normal HS length noted MMT: Pt. has 5/5 throughout. Core strength: poor. Balance/Special Test Scores Oswestry Low Back Score: 9 Goals Goal 1:: LTG: Pt. to have increased core strength to fair to reduce stress to lumbar spine Goal Time Frame: 4-6 Weeks Goal 2:: LTG: Pt. to have no pain with all gym exercises allowing or healthy lifestyle. Goal Time Frame: 4-6 Weeks Goal 3:: LTG: Pt. to be able to ambulate 1000' without increase in lumbar spine pain. Goal Time Frame: 4-6 Weeks Rehabilitation Potential Physical Therapy Diagnosis: Pt. has signs and symptoms consistent with lumbar stenosis. Pt. has marked limited lumbar extension and decreased core strength. Pt. would benefit from PT to address the above limitations. Rehabilitation Potential: Excellent Anticipated Interventions Patient/Client Instruction: Educate patient on: Condition, Risk Factors and Benefits of Fitness Program For the Purpose of:: To improve decision making, To facilitate caregiver knowledge, To improve self management, To prevent re-injury and To improve ability to perform tasks related to life management Therapeutic Exercise to Include: Strength training, Power training, Flexibilty training, Passive ROM, Active ROM and Dynamic Lumbar Stabilization For the Purpose of:: To decrease pain, To increase ROM and To increase oxygenation perfusion Manual Therapy Techniques to Include: Mobilization, Functional dry needling and Soft tissue mobilization For the Purpose of:: To decrease pain, To decrease swelling/inflammation, To increase ROM, To improve nutrient delivery to tissue, To increase oxygenation perfusion and To improve muscle performance and motor function Text: Thank you for the opportunity to evaluate your patient. For Medicare and Medicare HMO plans, please review the plan of care and approve it. It will need to be FAXED BACK to us at [phone] for Medicare purposes. For Medicare only, by signing this I certify the plan of care. Please let me know if there are questions or concerns regarding this plan of care. Physician Signature: Date:
--- NOTE | 2024-12-04 13:52 | HP.PTDCSUM ---
Discharge Summary D/C summary: It has been my pleasure to treat JOSY HOPPER referred by AISHA Gutierrez, with the diagnosis of Lumbar stenosis for a total of 5 visit(s). Discharge Date: Please see the following information for a summary of their discharge status. Subjective Subjective: Pt. reports basically no pain now. Pt. has some soreness, but not marked pain. Pt. reports being HEP compliant with all of her exercises. Pain lumbar spine: Pain Intensity (Out of 10): 3 Overall Improvement % Improvement: 90 Objective Objective/Function: Pt. to be DC from PT at this point in time. Pt. has met all goals and will be DC from PT. Pt. is able to walking unlimited distances without issues 4+/5 core strength noted. Pt. is back to all gym exercises.pt. will be DC from PT. Goals Goal 1:: LTG: Pt. to have increased core strength to fair to reduce stress to lumbar spine Goal Progress: Goal Met Goal 2:: LTG: Pt. to have no pain with all gym exercises allowing or healthy lifestyle. Goal Progress: Progressing Goal 3:: LTG: Pt. to be able to ambulate 1000' without increase in lumbar spine pain. Goal Progress: Progressing Plan Plan: Neutral spine core strengthening progressing as toleratd DN as needed for lumbar muscle tension/pain. D/C Information d/c sentence: If there are questions or concerns regarding this patient's physical therapy, please feel free to call me at [phone]. Thank you for the referral of this patient. Sincerely, Vasyl Vick, DPT Balance/Gait/Functional tests Balance/Special Test Scores Oswestry Low Back Score: 9 Improvement % Improvement: 90
== END 2024-08-30 19:00 | disposition home or self-care (01) ==
LOC: PT 13:30
PROVIDERS: PCP Internal Medicine; Referring Provider Internal Medicine; Visit Provider Internal Medicine
DX: M48.061 Spinal stenosis, lumbar region without neurogenic claudication (principal); M79.7 Fibromyalgia; L40.50 Arthropathic psoriasis, unspecified
CPT/HCPCS: 97110; 97161